=== PATIENT | female | born 1960 | race Caucasian/White ===

== ENCOUNTER 2018-02-18 13:00 | Outpatient (RCR) | payer OTHER, SELFPAY ==
--- NOTE | 2018-02-09 12:56 | PT.OTN ---
Addendum entered and electronically signed by Rafa Godfrey 02/09/18 14:36: On February 09, 2018 our therapy services consisting of Speech, Occupational, and Physical therapy transitioned from [employer] electronic documentation system to a new [employer] electronic system. All documentation prior to February 09 can be found under [employer] saved data. From February 09 forward, all medical record documentation will be in [employer] 6.1. Original Note: Current Diagnoses Unilateral primary osteoarthritis, left knee (02/09/18) Unspecified internal derangement of left knee (02/09/18) Pain in left knee (02/09/18) Difficulty in walking, not elsewhere classified (02/09/18) Weakness (02/09/18)
--- NOTE | 2018-02-09 16:03 | PT.OTN ---
Addendum entered and electronically signed by Jesusita Velez, PT 02/09/18 16:07: Transition note: On February 09, 2018 our therapy services consisting of Speech, Occupational, and Physical Therapy transitioned from the [employer] electronic documentation system to a new [employer] electronic documentation system.?? All documentation prior to February 09 can be found under [employer] saved data. From February 09 forward all medical record documentation will be in [employer]. Original Note: Physical Therapy Treatment Note PT-OP-C Subjective Start: 02/09/18 08:30 Freq: Status: Active Protocol: Activity Type Activity Date Activity User E-Sign Co-Sign Detail Recorded Client Recorded Date Recorded By Document 02/09/18 13:00 [facility] [id number] 02/09/18 13:50 [facility] 02/09/18 13:00 OP-PT Subjective [Patient Comments] -Patient Comments I've got things I've got to do. Don't fully trust my leg yet, pain 0 -2/10. No pain medications. Woke up at 3 am with bursting sensation of increased sensation in front of knee, reports less numbness. -Patient Reported Progress Improving OP-PT Pain Assessment [Comments] -Pain Comments pain left knee 0-2/10 PT-OP-Q Treatments Start: 02/09/18 08:30 Freq: Status: Active Protocol: Activity Type Activity Date Activity User E-Sign Co-Sign Detail Recorded Client Recorded Date Recorded By Document 02/09/18 13:00 [facility] [id number] 02/09/18 13:50 [facility] 02/09/18 13:00 Cardio Equipment [Recumbent Bicycle] -Duration (Minutes) 10 -Resistance 2 -Seat Position 4 Gym Equipment [Shuttle Recovery] Unilateral Squats -Resistance 50 -Shuttle Recovery Platform Stable Bilateral Squats -Resistance 87 -Shuttle Recovery Platform Stable -Reps/Time 20 Therapeutic Exercises [Supine Exercises] 3 -Supine Exercise Name wall slide -Side left -Equipment Used slider sheet -Reps/Minutes 5 2 -Supine Exercise Name SAQ -Side bilateral -Reps/Minutes 8 -Comments manual assist for left LE 1 -Supine Exercise Name quad set with manual overpressure [Sitting Exercises] 2 -Sitting Exercise Name seated knee flexion with theraband -Equipment Used level 1 theraband -Reps/Minutes 10 [Standing Exercises] 3 -Standing Exercise Name heel raises, toe raises -Side bilateral -Reps/Minutes 10 2 -Standing Exercise Name sidestepping, fwd and back stepping with green theraband -Side bilateral -Reps/Minutes 10 1 -Standing Exercise Name quad stretch -Side left -Equipment Used chair -Reps/Minutes 2 Gait Training [Gait Activity] 1 -Description gait with emphasis on no limp -Device Used SPC -Level of Assistance verbal cues -Surface low carpet -Distance/Duration 5 min -Comments mirror for visual feedback Self-Care/Home Management Treatment [Education] -Other Education self-massage, use of heat for muscle relaxation of hamstrings PT-OP-T Assessment and Plan Start: 02/09/18 08:30 Freq: Status: Active Protocol: Activity Type Activity Date Activity User E-Sign Co-Sign Detail Recorded Client Recorded Date Recorded By Document 02/09/18 15:19 [facility] [id number] 02/09/18 15:20 [facility] 02/09/18 15:19 Physical Therapy Plan [Frequency and Duration] -Frequency of Treatment 2x/Week [Next Visit Focus/Plan] -Next Visit Plan Continue TKA rehab, emphasis on knee extension, functional quad strengthening. Current Diagnoses Unilateral primary osteoarthritis, left knee (02/09/18) Unspecified internal derangement of left knee (02/09/18) Pain in left knee (02/09/18) Difficulty in walking, not elsewhere classified (02/09/18) Weakness (02/09/18)
--- NOTE | 2018-02-11 18:02 | PT.OTN ---
Current Diagnoses Unilateral primary osteoarthritis, left knee (02/11/18) Unspecified internal derangement of left knee (02/11/18) Pain in left knee (02/11/18) Difficulty in walking, not elsewhere classified (02/11/18) Weakness (02/11/18) Physical Therapy Treatment Note PT-OP-A Visit Information Start: 02/09/18 08:30 Freq: Status: Active Protocol: Activity Type Activity Date Activity User E-Sign Co-Sign Detail Recorded Client Recorded Date Recorded By Document 02/11/18 17:46 [facility] [id number] 02/11/18 17:47 [facility] 02/11/18 17:46 Out-Patient Physical Therapy Visit Information [Visit Information] -Visit Type Treatment Note -Visit Start Time 13:00 -Visit Stop Time 14:00 -Total Visit Minutes 60 -Visit Number 10 -Number of FUR PLUCKER Visits 0 PT-OP-C Subjective Start: 02/09/18 08:30 Freq: Status: Active Protocol: Activity Type Activity Date Activity User E-Sign Co-Sign Detail Recorded Client Recorded Date Recorded By Document 02/11/18 13:16 [facility] [id number] 02/11/18 13:47 [facility] 02/11/18 13:16 OP-PT Subjective [Patient Comments] -Patient Comments Rough week; left hip pain limiting, unable to fully straighten left knee. OP-PT Pain Assessment [Home Pain Medication Use] -Pain Medications Used No PT-OP-G Mobility & Gait Start: 02/09/18 08:30 Freq: Status: Active Protocol: Activity Type Activity Date Activity User E-Sign Co-Sign Detail Recorded Client Recorded Date Recorded By Document 02/11/18 18:00 [facility] [id number] 02/11/18 18:01 [facility] 02/11/18 18:00 OP Gait Assessment [Gait] -Gait Assistance Required: Independent [Assistive Devices] -Assistive Device Straight Cane [Gait Deviations] -General Gait Pattern Antalgic [Factors Limiting Gait Function] -Factors Limiting Gait Function Pain PT-OP-K Range of Motion Start: 02/09/18 08:30 Freq: Status: Active Protocol: Activity Type Activity Date Activity User E-Sign Co-Sign Detail Recorded Client Recorded Date Recorded By Document 02/11/18 17:57 [facility] [id number] 02/11/18 17:58 [facility] 02/11/18 17:57 Knee Goniometric Range of Motion [Knee] Measured in Degrees Left -Knee ROM WFL No -Patient Position supine for flex , seated extension -Flexion Passive (120-145 degrees) 120 -Extension Active (degrees) 17 [ROM Limitations] -Knee ROM Limitations Soft Tissue Tightness Pain PT-OP-Q Treatments Start: 02/09/18 08:30 Freq: Status: Active Protocol: Activity Type Activity Date Activity User E-Sign Co-Sign Detail Recorded Client Recorded Date Recorded By Document 02/11/18 13:16 [facility] [id number] 02/11/18 13:47 [facility] 02/11/18 13:16 Cardio Equipment [Treadmill] -Duration (Minutes) 5 -Speed 2.0 -Incline 0 Gym Equipment [Shuttle Recovery] Unilateral Squats -Resistance 50 -Shuttle Recovery Platform Stable -Reps/Time 10 with manual overpressure Bilateral Squats -Resistance 87 -Shuttle Recovery Platform Stable -Reps/Time 20x [Shuttle Balance] 1 -Details side to side and front to back bal chains red -Reps/Duration 5' Therapeutic Exercises [Supine Exercises] 3 -Supine Exercise Name quad sets -Side left -Comments manual overpressure [Prone Exercises] 2 -Prone Exercise Name prone knee stretch -Side left -Equipment Used edge of table -Reps/Minutes 4 -Comments with manual overpressure 1 -Prone Exercise Name knee flex -Side bilateral -Equipment Used edge of table [Standing Exercises] 2 -Standing Exercise Name Backward gait for knee extension -Side bilateral -Reps/Minutes 2' 1 -Standing Exercise Name standing knee extension -Side left -Equipment Used L1 TB -Reps/Minutes 10x PT-OP-R Modalities Start: 02/09/18 08:30 Freq: Status: Active Protocol: Activity Type Activity Date Activity User E-Sign Co-Sign Detail Recorded Client Recorded Date Recorded By Document 02/11/18 17:53 [facility] [id number] 02/11/18 17:54 [facility] 02/11/18 17:53 Electric Stimulation [Electric Stimulation] Interferential Current (IFC) -Body Location left knee -Duration (Minutes) 15 -Patient Position Hooklying -Combined With Heat/Cold Cold Pack PT-OP-T Assessment and Plan Start: 02/09/18 08:30 Freq: Status: Active Protocol: Activity Type Activity Date Activity User E-Sign Co-Sign Detail Recorded Client Recorded Date Recorded By Document 02/11/18 17:54 [facility] [id number] 02/11/18 17:56 YONNY 02/11/18 17:54 Physical Therapy Assessment [Assessment Summary] -Assessment Patient doing well with knee flexion, but having difficulty achieving full knee extension. Gait antalgic due to both knee pain as well as left hip pain. Physical Therapy Plan [Next Visit Focus/Plan] -Next Visit Plan Progress with TKA rehab; left knee ROM, strengthening, gait training.
--- NOTE | 2018-02-14 17:07 | PT.OPPN ---
Current Diagnoses Unilateral primary osteoarthritis, left knee (02/11/18) Unspecified internal derangement of left knee (02/11/18) Pain in left knee (02/11/18) Difficulty in walking, not elsewhere classified (02/11/18) Weakness (02/11/18) Physical Therapy Progress Note PT-OP-A Visit Information Start: 02/09/18 08:30 Freq: Status: Active Protocol: Activity Type Activity Date Activity User E-Sign Co-Sign Detail Recorded Client Recorded Date Recorded By Document 02/11/18 17:46 [facility] [id number] 02/11/18 17:47 [facility] 02/11/18 17:46 Out-Patient Physical Therapy Visit Information [Visit Information] -Visit Type Treatment Note -Visit Start Time 13:00 -Visit Stop Time 14:00 -Total Visit Minutes 60 -Visit Number 10 -Number of SPEECH COMMUNICATION INSTRUCTOR Visits 0 PT-OP-C Subjective Start: 02/09/18 08:30 Freq: Status: Active Protocol: Activity Type Activity Date Activity User E-Sign Co-Sign Detail Recorded Client Recorded Date Recorded By Document 02/11/18 13:16 [facility] [id number] 02/11/18 13:47 [facility] 02/11/18 13:16 OP-PT Subjective [Patient Comments] -Patient Comments Rough week; left hip pain limiting, unable to fully straighten left knee. OP-PT Pain Assessment [Home Pain Medication Use] -Pain Medications Used No PT-OP-G Mobility & Gait Start: 02/09/18 08:30 Freq: Status: Active Protocol: Activity Type Activity Date Activity User E-Sign Co-Sign Detail Recorded Client Recorded Date Recorded By Document 02/11/18 18:00 [facility] [id number] 02/11/18 18:01 [facility] 02/11/18 18:00 OP Gait Assessment [Gait] -Gait Assistance Required: Independent [Assistive Devices] -Assistive Device Straight Cane [Gait Deviations] -General Gait Pattern Antalgic [Factors Limiting Gait Function] -Factors Limiting Gait Function Pain PT-OP-K Range of Motion Start: 02/09/18 08:30 Freq: Status: Active Protocol: Activity Type Activity Date Activity User E-Sign Co-Sign Detail Recorded Client Recorded Date Recorded By Document 02/11/18 17:57 [facility] [id number] 02/11/18 17:58 [facility] 02/11/18 17:57 Knee Goniometric Range of Motion [Knee] Measured in Degrees Left -Knee ROM WFL No -Patient Position supine for flex , seated extension -Flexion Passive (120-145 degrees) 120 -Extension Active (degrees) 17 [ROM Limitations] -Knee ROM Limitations Soft Tissue Tightness Pain PT-OP-T Assessment and Plan Start: 02/09/18 08:30 Freq: Status: Active Protocol: Activity Type Activity Date Activity User E-Sign Co-Sign Detail Recorded Client Recorded Date Recorded By Document 02/14/18 16:58 [facility] [id number] 02/14/18 17:07 [facility] 02/14/18 16:58 Physical Therapy Assessment [Impairments] -Impairments Edema Functional Mobility Gait ROM Strength [Goals] Six -Impairment edema -Obstetrical Tech Goal (LTG) Decrease swelling to within 1 cm of right knee Five -Impairment Strength -Obstetrical Tech Goal (LTG) Increase left LE strength to 4+/5 Four -Impairment Gait dysfunction: antalgic, step- to on stairs -Obstetrical Tech Goal (LTG) Gait without device without limp, alternating pattern on stairs Three -Impairment Education -Residential Goal (LTG) Patient to be independent with HEP -LTG Duration 4 wks Two -Impairment LEFS -Residential Goal (LTG) Improve LEFS to 75% -LTG Duration 4 wks One -Impairment ROM -Residential Goal (LTG) Increase left knee ROM to 0- 120 -LTG Duration 4 wks [Progress Towards Goals] -Progress Towards Goals Progressing Toward Goals -Progress Comments Great progress with knee flexion ROM, but lacks full knee extension and gait is antalgic due to left hip dysfunction with pain and weakness. Patient is highly motivated. Physical Therapy Plan [Frequency and Duration] -Frequency of Treatment 2x/Week -Duration of Treatment 4 wks -Plan of Care Start Date 01/11/18 -Plan of Care End Date 03/12/18 [Therapeutic Interventions] -Therapeutic Interventions Aquatic Therapy Gait Training Home Exercise Program Manual Therapy Neuromuscular Re-education Patient/ Caregiver Education Self-Care/Home Management Therapeutic Activities Therapeutic Exercises [Next Visit Focus/Plan] -Next Visit Plan Continue to progress with TKA rehab with high focus on increasing left knee extension .
--- NOTE | 2018-02-16 14:52 | PT.OTN ---
Current Diagnoses Unilateral primary osteoarthritis, left knee (02/16/18) Unspecified internal derangement of left knee (02/16/18) Pain in left knee (02/16/18) Difficulty in walking, not elsewhere classified (02/16/18) Weakness (02/16/18) Physical Therapy Treatment Note PT-OP-A Visit Information Start: 02/09/18 08:30 Freq: Status: Active Protocol: Activity Type Activity Date Activity User E-Sign Co-Sign Detail Recorded Client Recorded Date Recorded By Document 02/16/18 14:46 [facility] [id number] 02/16/18 14:51 [facility] 02/16/18 14:46 Out-Patient Physical Therapy Visit Information [Visit Information] -Visit Type Treatment Note -Visit Start Time 13:00 -Visit Stop Time 14:00 -Total Visit Minutes 60 -Visit Number 11 -Number of COMMUNITY HEALTH PLANNING DIRECTOR Visits 0 [Evaluation Information] -Evaluation Date 01/11/18 PT-OP-C Subjective Start: 02/09/18 08:30 Freq: Status: Active Protocol: Activity Type Activity Date Activity User E-Sign Co-Sign Detail Recorded Client Recorded Date Recorded By Document 02/16/18 13:06 [facility] [id number] 02/16/18 13:08 [facility] 02/16/18 13:06 OP-PT Subjective [Patient Comments] -Patient Comments Patient reports she saw PA who was pleased with her progress; said the extension will come. Patient reported increase in pain after spending a lot of time on her feet standing and walking at [facility]. Used walker on Thursday. OP-PT Pain Assessment [Pain Behaviors] -Pain Behaviors Facial Grimacing Guarding PT-OP-G Mobility & Gait Start: 02/09/18 08:30 Freq: Status: Active Protocol: Activity Type Activity Date Activity User E-Sign Co-Sign Detail Recorded Client Recorded Date Recorded By Document 02/11/18 18:00 [facility] [id number] 02/11/18 18:01 [facility] 02/11/18 18:00 OP Gait Assessment [Gait] -Gait Assistance Required: Independent [Assistive Devices] -Assistive Device Straight Cane [Gait Deviations] -General Gait Pattern Antalgic [Factors Limiting Gait Function] -Factors Limiting Gait Function Pain PT-OP-K Range of Motion Start: 02/09/18 08:30 Freq: Status: Active Protocol: Activity Type Activity Date Activity User E-Sign Co-Sign Detail Recorded Client Recorded Date Recorded By Document 02/11/18 17:57 [facility] [id number] 02/11/18 17:58 [facility] 02/11/18 17:57 Knee Goniometric Range of Motion [Knee] Measured in Degrees Left -Knee ROM WFL No -Patient Position supine for flex , seated extension -Flexion Passive (120-145 degrees) 120 -Extension Active (degrees) 17 [ROM Limitations] -Knee ROM Limitations Soft Tissue Tightness Pain PT-OP-Q Treatments Start: 02/09/18 08:30 Freq: Status: Active Protocol: Activity Type Activity Date Activity User E-Sign Co-Sign Detail Recorded Client Recorded Date Recorded By Document 02/16/18 13:08 [facility] [id number] 02/16/18 14:38 [facility] 02/16/18 13:08 Cardio Equipment [Recumbent Bicycle] -Duration (Minutes) 10 -Resistance 3 -Seat Position 4 -Other 4.4 miles Gym Equipment [Shuttle Recovery] Unilateral Squats -Resistance 50 -Shuttle Recovery Platform Stable -Reps/Time 10 with manual overpressure Bilateral Squats -Resistance 87 -Shuttle Recovery Platform Stable -Reps/Time 20x [Shuttle Balance] 1 -Details side to side and front to back bal chains red -Reps/Duration 8' Therapeutic Exercises [Supine Exercises] 3 -Supine Exercise Name wall slide -Side left -Equipment Used slider sheet -Reps/Minutes 5 [Prone Exercises] 2 -Prone Exercise Name prone knee stretch -Side left -Equipment Used edge of table -Reps/Minutes 5 -Comments with manual overpressure 1 -Prone Exercise Name knee flex -Side bilateral -Equipment Used edge of table [Standing Exercises] 4 -Standing Exercise Name HC stretch -Equipment Used ARSALAN Manual Therapy Treatment [Soft Tissue Mobilization] 1 -Body Location distal hamstrings -Mobilization Type Strumming -Intensity/Depth Deep -Body Position Prone PT-OP-R Modalities Start: 02/09/18 08:30 Freq: Status: Active Protocol: Activity Type Activity Date Activity User E-Sign Co-Sign Detail Recorded Client Recorded Date Recorded By Document 02/16/18 14:38 [facility] [id number] 02/16/18 14:39 [facility] 02/16/18 14:38 Electric Stimulation [Electric Stimulation] Interferential Current (IFC) -Body Location left knee -Intensity 50 -Contraction Type Normal -Target/Sweep Sweep -High/Low High -Patient Position Supine -Combined With Heat/Cold Cold Pack PT-OP-T Assessment and Plan Start: 02/09/18 08:30 Freq: Status: Active Protocol: Activity Type Activity Date Activity User E-Sign Co-Sign Detail Recorded Client Recorded Date Recorded By Document 02/16/18 14:44 [facility] [id number] 02/16/18 14:45 [facility] 02/16/18 14:44 Physical Therapy Assessment [Progress Towards Goals] -Progress Towards Goals Progressing Toward Goals [Assessment Summary] -Assessment Improved distal hamstring mobility following manual treatment. Continues to progress with ther ex. Physical Therapy Plan [Next Visit Focus/Plan] -Next Visit Plan Continue TKA rehab, progress ROM especially extension. Add sport cord
--- NOTE | 2018-02-18 16:32 | PT.OTN ---
Current Diagnoses Unilateral primary osteoarthritis, left knee (02/18/18) Unspecified internal derangement of left knee (02/18/18) Pain in left knee (02/18/18) Difficulty in walking, not elsewhere classified (02/18/18) Weakness (02/18/18) Physical Therapy Treatment Note PT-OP-A Visit Information Start: 02/09/18 08:30 Freq: Status: Active Protocol: Document 02/18/18 16:27 [facility] (Rec: 02/18/18 16:32 [facility] [id number]) Out-Patient Physical Therapy Visit Information Visit Information Visit Type Treatment Note Visit Start Time 13:00 Visit Stop Time 14:00 Total Visit Minutes 60 Visit Number 12 Number of BASE MANAGER Visits 0 Evaluation Information Evaluation Date 01/11/18 PT-OP-C Subjective Start: 02/09/18 08:30 Freq: Status: Active Protocol: Document 02/18/18 12:59 [facility] (Rec: 02/18/18 13:38 [facility] [id number]) OP-PT Subjective Patient Comments Patient Comments hip pain most limiting, still can't extend knee. Patient Reported Progress Improving PT-OP-G Mobility & Gait Start: 02/09/18 08:30 Freq: Status: Active Protocol: Document 02/11/18 18:00 [facility] (Rec: 02/11/18 18:01 [facility] [id number]) OP Gait Assessment Gait Gait Assistance Required: Independent Assistive Devices Assistive Device Straight Cane Gait Deviations General Gait Pattern Antalgic Factors Limiting Gait Function Factors Limiting Gait Function Pain PT-OP-K Range of Motion Start: 02/09/18 08:30 Freq: Status: Active Protocol: Document 02/11/18 17:57 [facility] (Rec: 02/11/18 17:58 [facility] [id number]) Knee Goniometric Range of Motion Knee Measured in Degrees Left Knee ROM WFL No Patient Position supine for flex, seated extension Flexion Passive (degrees) 120 Extension Active (degrees) 17 Knee ROM Limitations Knee ROM Limitations Soft Tissue Tightness Pain PT-OP-Q Treatments Start: 02/09/18 08:30 Freq: Status: Active Protocol: Document 02/18/18 12:59 [facility] (Rec: 02/18/18 13:38 [facility] [id number]) Gym Equipment Shuttle Balance 1 Details side to side and front to back bal chains red Reps/Duration 8' Sport Cord 1 Exercise Details forward, back, side Therapeutic Exercises Supine Exercises 4 Supine Exercise Name bridge with LE's on therapy ball Equipment Used red ball Reps/Minutes 10x 3 Supine Exercise Name wall slide Side left Equipment Used slider sheet Reps/Minutes 5 2 Supine Exercise Name SAQ Side bilateral Reps/Minutes 8 Comments manual assist for left LE 1 Supine Exercise Name quad set with manual overpressure Prone Exercises 2 Prone Exercise Name prone knee stretch Side left Equipment Used edge of table Reps/Minutes 5 Comments with manual overpressure 1 Prone Exercise Name knee flex Side bilateral Equipment Used edge of table Standing Exercises 4 Standing Exercise Name HC stretch Equipment Used ARSALAN 3 Standing Exercise Name heel raises, toe raises Side bilateral Reps/Minutes 10 1 Standing Exercise Name standing knee extension Side left Equipment Used L1 TB Reps/Minutes 10x Gait Training Gait Activity 1 Description gait with emphasis on no limp Device Used SPC Level of Assistance verbal cues Surface low carpet Distance/Duration 5 min Comments mirror for visual feedback Manual Therapy Treatment Soft Tissue Mobilization 1 Body Location distal hamstrings Mobilization Type Strumming Intensity/Depth Deep Body Position Prone PT-OP-R Modalities Start: 02/09/18 08:30 Freq: Status: Active Protocol: Document 02/18/18 16:27 [facility] (Rec: 02/18/18 16:32 [facility] [id number]) Electric Stimulation Electric Stimulation Interferential Current (IFC) Body Location left knee Intensity 50 Contraction Type Normal Target/Sweep Sweep High/Low High Patient Position Supine Combined With Heat/Cold Cold Pack PT-OP-T Assessment and Plan Start: 02/09/18 08:30 Freq: Status: Active Protocol: Document 02/18/18 16:27 [facility] (Rec: 02/18/18 16:32 [facility] [id number]) Physical Therapy Assessment Assessment Summary Assessment Patient demonstrates improved gait with use of sport cord to increase focus on correct muscle activation and gait sequencing Physical Therapy Plan Frequency and Duration Frequency of Treatment 2x/Week Duration of Treatment 4 wks Plan of Care Start Date 01/11/18 Plan of Care End Date 03/12/18 Next Visit Focus/Plan Next Visit Plan Continue TKA rehab, progress ROM especially extension. Sidelying hip ab against wall
--- NOTE | 2018-05-04 14:09 | PT.OPDS ---
Current Diagnoses Unilateral primary osteoarthritis, left knee (02/18/18) Unspecified internal derangement of left knee (02/18/18) Pain in left knee (02/18/18) Difficulty in walking, not elsewhere classified (02/18/18) Weakness (02/18/18) Provider Visit Care Team Role Provider Type Conrad Desai MD Family Provider Physician Primary Care Provider Specialty: Family Practice Address: [address] [place] [address], [id number] Email: [email or web address] Orion Reyes MD Attending Provider Physician Specialty: Family Practice Address: [address] [place] [address], [id number] Email: Visit Number Visit Number 12 Discharge Summary PT-OP-C Subjective Start: 02/09/18 08:30 Freq: Status: Active Protocol: Document 02/18/18 12:59 SAK (Rec: 02/18/18 13:38 [facility] [id number]) OP-PT Subjective Patient Comments Patient Comments hip pain most limiting, still can't extend knee. Patient Reported Progress Improving PT-OP-G Mobility & Gait Start: 02/09/18 08:30 Freq: Status: Active Protocol: Document 02/11/18 18:00 SAK (Rec: 02/11/18 18:01 [facility] [id number]) OP Gait Assessment Gait Gait Assistance Required: Independent Assistive Devices Assistive Device Straight Cane Gait Deviations General Gait Pattern Antalgic Factors Limiting Gait Function Factors Limiting Gait Function Pain PT-OP-K Range of Motion Start: 02/09/18 08:30 Freq: Status: Active Protocol: Document 02/11/18 17:57 SAK (Rec: 02/11/18 17:58 [facility] [id number]) Knee Goniometric Range of Motion Knee Measured in Degrees Left Knee ROM WFL No Patient Position supine for flex, seated extension Flexion Passive (degrees) 120 Extension Active (degrees) 17 Knee ROM Limitations Knee ROM Limitations Soft Tissue Tightness Pain PT-OP-T Assessment and Plan Start: 02/09/18 08:30 Freq: Status: Active Protocol: Document 05/04/18 14:07 SAK (Rec: 05/04/18 14:08 SAK [id number]) Physical Therapy Assessment Goals Six Impairment edema Pie Maker Goal (LTG) Decrease swelling to within 1 cm of right knee Five Impairment Strength Fpc Goal (LTG) Increase left LE strength to 4 +/5 Four Impairment Gait dysfunction: antalgic, step-to on stairs Fpc Goal (LTG) Gait without device without limp, alternating pattern on stairs Three Impairment Education Fpc Goal (LTG) Patient to be independent with HEP LTG Duration 4 wks Two Impairment LEFS Fpc Goal (LTG) Improve LEFS to 75% LTG Duration 4 wks One Impairment ROM Fpc Goal (LTG) Increase left knee ROM to 0- 120 LTG Duration 4 wks Progress Towards Goals Progress Comments Patient had been progressing with PT though lacking full knee extension. She did not show for her last 2 scheduled PT appointments and we have heard nothing further. Will be discharged from PT at this time. Assessment Summary Assessment Unable to perform discharge assessment due to patient no- shows. Physical Therapy Plan Discharge Physical Therapy Discharge Reasons No Longer Attending PT
== END 2018-09-13 12:52 ==
LOC: PHYS 13:00
PROVIDERS: Family Provider Family Medicine; PCP Family Medicine; Visit Provider Family Medicine
DX: M23.92 Unspecified internal derangement of left knee (principal); M25.562 Pain in left knee; M17.12 Unilateral primary osteoarthritis, left knee; R26.2 Difficulty in walking, not elsewhere classified; R53.1 Weakness
CPT/HCPCS: 97014; 97110; 97112; 97140; G0283

== ENCOUNTER 2018-03-02 17:51 | Emergency (ER) | payer OTHER, SELFPAY ==
[2018-03-02 18:01] VITALS: BP 117/74; PULSE 85; RESP 16; TEMP 36.3; O2SAT 97; BMI 27.2
--- NOTE | 2018-03-02 18:03 | ED.EXTPRO ---
HPI - Extremity Problem <DEBORA Valle - Last Filed: 03/02/18 21:56> General Chief complaint: Extremity Injury, Lower Stated complaint: PELVIC PAIN S/P FALL IN BATHTUB Time Seen by Provider: 03/02/18 18:03 History of Present Illness HPI Narrative: 57-year-old female here for complaint of pain into her left hip area status post fall in her bathtub yesterday. She states that she was stepping out of the tub yesterday after taking a bath her ft slipped causing her to come down on her buttocks/hip area on the edge of the tub. She is able to ambulate although she does have pain to that area. She denies any other injuries or concerns. Increased pain with motion of the left hip/buttock. She denies any loss of bladder or bowel control. MD Complaint: extremity pain Related Data Previous Rx's Medication Instructions Recorded albuterol sulfate [Proventil HFA] 2 puff INH Q4HP PRN #8.5 gm 05/27/17 hydrocodone-acetaminophen [[place]] 1 - 2 tab PO Q4HP PRN #90 tab 07/22/17 hydrocodone-acetaminophen 1 - 2 tab PO Q6HP PRN #90 tab 01/29/18 hydrocodone-acetaminophen 1 tab PO Q6H PRN #10 tab 03/02/18 Allergies Allergy/AdvReac Type Severity Reaction Status Date / Time ketorolac [KETOROLAC] Allergy Severe THROAT Verified 03/02/18 21:02 SWELLING FROM TORADOL Review of Systems <DEBORA Valle - Last Filed: 03/02/18 21:56> Constitutional Denies chills, Denies fever(s), Denies lethargy and Denies weakness Eyes Denies change in vision, Denies eye discharge, Denies irritation and Denies loss of vision ENT Ears, Nose, Mouth, and Throat: Denies change in voice, Denies neck pain and Denies sore throat Cardiovascular Denies chest pain, Denies irregular heart rhythm, Denies lightheadedness, Denies palpitations, Denies dyspnea, Denies dyspnea on exertion and Denies orthopnea Respiratory Denies cough, Denies dyspnea, Denies dyspnea on exertion and Denies wheezing Gastrointestinal Gastrointestinal: Denies abdominal pain, Denies change in bowel habits, Denies diarrhea, Denies nausea and Denies vomiting Genitourinary Denies hematuria, Denies flank pain, Denies urinary incontinence and Denies urinary urgency Musculoskeletal Denies back pain, Denies muscle weakness, Denies neck pain, Denies numbness and Denies tingling Comments: Left hip/buttocks pain Neurologic Denies loss of vision, Denies numbness, Denies tingling and Denies weakness Endocrine Denies palpitations Allergic/Immunologic Denies wheezing Exam <DEBORA Valle - Last Filed: 03/02/18 21:56> Initial Vital Signs Initial Vital Signs: Vital Signs Temperature 97.4 F L 03/02/18 18:01 Pulse Rate 85 03/02/18 18:01 Respiratory Rate 16 03/02/18 18:01 Blood Pressure 117/74 03/02/18 18:01 Pulse Oximetry 97 03/02/18 18:01 Const General: cooperative and well developed Nutritional Appearance: well nourished Orientation: alert, awake, oriented x3 and not confused HENMT Mouth: oral mucosae normal, oropharynx normal and moist mucous membranes Eyes Conjunctivae: conjunctivae normal Sclera: sclerae normal Pupils: PERRL EOM: EOM intact bilaterally Resp Effort & Inspection: normal respiratory effort, able to speak in complete sentences, no respiratory distress and no use of accessory muscles Auscultation: clear to auscultation bilaterally, no rales, no rhonchi and no wheezes Cardio Rate: regular rate Rhythm: regular rhythm Heart Sounds: no click, no gallops, no murmurs and no rubs Pulses: normal peripheral pulses GI Inspection: non-distended Palpation: soft, no hepatosplenomegaly, No guarding, No pulsatile mass and No tender Auscultation: normal bowel sounds Skin General: no rashes or lesions noted, No jaundice and No petechiae Extrem Other: Left hip/buttocks area with no deformities. No ecchymosis. No swelling. Distal sensation is intact. Full range of motion. Distal pulses are intact. <Shiraz Singleton DO - Last Filed: 03/03/18 03:22> Initial Vital Signs Initial Vital Signs: Vital Signs Temperature 97.4 F L 03/02/18 18:01 Pulse Rate 85 03/02/18 18:01 Respiratory Rate 16 03/02/18 18:01 Blood Pressure 117/74 03/02/18 18:01 Pulse Oximetry 97 03/02/18 18:01 Course <DEBORA Valle - Last Filed: 03/02/18 21:56> Orders Ordered: ED Orders 03/02/18 19:38 XR femur LT min 2V Stat Discontinued Medications Morphine Sulfate (Morphine) 5 mg IM NOW ONE Stop: 03/02/18 19:40 Morphine Sulfate (Morphine) 4 mg IV NOW ONE Stop: 03/02/18 20:46 Morphine Sulfate (Morphine) 4 mg INJ NOW ONE Stop: 03/02/18 20:50 Last Admin: 03/02/18 20:51 Dose: 4 mg Vital Signs - 8 hr 03/02/18 20:17 Pulse Rate 84 Respiratory Rate 15 Blood Pressure [Left Arm] 115/55 L Pulse Oximetry 100 <Shiraz Singleton DO - Last Filed: 03/03/18 03:22> Orders Ordered: ED Orders 03/02/18 19:38 XR femur LT min 2V Stat Discontinued Medications Morphine Sulfate (Morphine) 5 mg IM NOW ONE Stop: 03/02/18 19:40 Morphine Sulfate (Morphine) 4 mg IV NOW ONE Stop: 03/02/18 20:46 Morphine Sulfate (Morphine) 4 mg INJ NOW ONE Stop: 03/02/18 20:50 Last Admin: 03/02/18 20:51 Dose: 4 mg Vital Signs - 8 hr 03/02/18 20:17 Pulse Rate 84 Respiratory Rate 15 Blood Pressure [Left Arm] 115/55 L Pulse Oximetry 100 MDM - Extremity (Nontraumatic) <DEBORA Valle - Last Filed: 03/02/18 21:56> Imaging Data Hip pelvis: Radiologist's impression: PROCEDURE: XR HIP W PEL IF DONE LT 2V INDICATIONS: fell in the tub last night, landed on her buttocks. Left hip pain TECHNIQUE: AP pelvis with lateral view(s) of the left hip(s). COMPARISON: None. FINDINGS: Bones: No fractures or dislocations. Pelvic ring appears intact. No suspicious bony lesions. Soft tissues: The visualized bowel gas pattern is normal. No suspicious soft tissue calcifications. IMPRESSION: No fracture or dislocation. If clinical symptoms persist or clinical suspicion for pathology is high, a repeat examination in 7-10 days, or advanced imaging such as CT or MRI is suggested for further evaluation. Sacral coccyx : Radiologist's impression: PROCEDURE: XR SACRUM COCCYX MIN 2V INDICATIONS: fell in the tub, with tenderness sacral TECHNIQUE: 3 views of the sacrum and coccyx acquired. COMPARISON: None. FINDINGS: Bones: Suspect minimally displaced fracture of distal sacrum (S6). No suspicious bony lesions. There is degenerative disc disease lower lumbar spine. Soft tissues: Visualized bowel gas pattern is normal. No suspicious soft tissue densities. IMPRESSION: Suspect minimally displaced distal sacral fracture. Dictated by: Pippa Fontanez M.D. on 03/02/2018 at 18:41 Approved by: Pippa Fontanez M.D. on 03/02/2018 at 18:44 Left femur : My impression: PROCEDURE: XR FEMUR LT MIN 2V INDICATIONS: thigh pain and hip pain sp fall TECHNIQUE: 3 views of the femur were acquired. COMPARISON: None. FINDINGS: Bones: No fractures or dislocations. No suspicious bony lesions. There is left knee arthroplasty with partially visualized intact prosthesis. Soft tissues: No suspicious soft tissue calcifications or masses. IMPRESSION: No fracture or dislocation. MDM Narrative Medical decision making narrative: X-ray of the left hip and left femur were obtained were negative for any acute fractures. X-ray of the sacrum/coccyx was obtained and shows possible nondisplaced fracture to the distal sacrum. [id number] Tylenol as needed for discomfort. She is prescribed a small amount of [place] for breakthrough pain. Follow up with primary care provider. She is instructed to use a donut for sitting to help with her pain. For any worsening symptoms such as numbness tingling to lower extremities or loss of bladder or bowel control return to the emergency room. Discharge Plan Departure Patient Disposition: Home, Self-Care Clinical Impression: Sacral fracture, closed Discharge Date/Time: 03/02/18 21:03 Interventions: ED Discharge Assessment Last Done: 03/02/18 21:02 Instructions: Sacral Stress Fracture Activity Restrictions/Additional Instructions: X-ray shows a nondisplaced fracture to the distal sacrum. Use [id number] Tylenol for discomfort. Small amount of [place] is prescribed for breakthrough pain use as directed. Use doughnut to with sitting to help with discomfort. Follow up with primary care provider. For any worsening symptoms such as numbness and tingling into the lower extremities or loss of bladder control or unable to ambulate return to the emergency room. Prescriptions: New hydrocodone-acetaminophen 5-325 mg tablet 1 tab PO Q6H PRN (Reason: pain) Qty: 10 RF: 0 No Action albuterol sulfate [Proventil HFA] 90 MCG/PUFF HFA aerosol inhaler 2 puff INH Q4HP PRNQty: 8.5 RF: 3 hydrocodone-acetaminophen [[place]] 5 MG/325 MG tablet 1 - 2 tab PO Q4HP PRNQty: 90 RF: 0 hydrocodone-acetaminophen 5 MG/325 MG tablet 1 - 2 tab PO Q6HP PRNQty: 90 RF: 0 Referrals: Conrad Desai MD [Primary Care Provider] - <Shiraz Singleton DO - Last Filed: 03/03/18 03:22> Cosign ED Attending Nicolás Attestation: I was immediately available in the department for consultation. Documentation has been reviewed. I agree with assessment and plan.
--- NOTE | 2018-03-02 18:15 | DI.RAD.S_ITS ---
PROCEDURE: XR HIP W PEL IF DONE LT 2V INDICATIONS: fell in the tub last night, landed on her buttocks. Left hip pain TECHNIQUE: AP pelvis with lateral view(s) of the left hip(s). COMPARISON: None. FINDINGS: Bones: No fractures or dislocations. Pelvic ring appears intact. No suspicious bony lesions. Soft tissues: The visualized bowel gas pattern is normal. No suspicious soft tissue calcifications. IMPRESSION: No fracture or dislocation. If clinical symptoms persist or clinical suspicion for pathology is high, a repeat examination in 7-10 days, or advanced imaging such as CT or MRI is suggested for further evaluation. Dictated by: Pippa Fontanez M.D. on 03/02/2018 at 18:39 Approved by: Pippa Fontanez M.D. on 03/02/2018 at 18:41
--- NOTE | 2018-03-02 18:19 | DI.RAD.S_ITS ---
PROCEDURE: XR SACRUM COCCYX MIN 2V INDICATIONS: fell in the tub, with tenderness sacral TECHNIQUE: 3 views of the sacrum and coccyx acquired. COMPARISON: None. FINDINGS: Bones: Suspect minimally displaced fracture of distal sacrum (S6). No suspicious bony lesions. There is degenerative disc disease lower lumbar spine. Soft tissues: Visualized bowel gas pattern is normal. No suspicious soft tissue densities. IMPRESSION: Suspect minimally displaced distal sacral fracture. Dictated by: Pippa Fontanez M.D. on 03/02/2018 at 18:41 Approved by: Pippa Fontanez M.D. on 03/02/2018 at 18:44
--- NOTE | 2018-03-02 19:38 | DI.RAD.S_ITS ---
PROCEDURE: XR FEMUR LT MIN 2V INDICATIONS: thigh pain and hip pain sp fall TECHNIQUE: 3 views of the femur were acquired. COMPARISON: None. FINDINGS: Bones: No fractures or dislocations. No suspicious bony lesions. There is left knee arthroplasty with partially visualized intact prosthesis. Soft tissues: No suspicious soft tissue calcifications or masses. IMPRESSION: No fracture or dislocation. Dictated by: Pippa Fontanez M.D. on 03/02/2018 at 20:26 Approved by: Pippa Fontanez M.D. on 03/02/2018 at 20:28
[2018-03-02 20:17] VITALS: BP 115/55; PULSE 84; RESP 15; O2SAT 100
[2018-03-02] MEDS: MORPHINE 4 MG/ML INJ INJ (20:51)
== END 2018-03-02 21:03 | disposition home or self-care (01) ==
PROVIDERS: Emergency Provider Nurse Practitioner Family; Family Provider Family Medicine; PCP Family Medicine
DX: S32.10XA Unspecified fracture of sacrum, initial encounter for closed fracture (principal); W18.2XXA Fall in (into) shower or empty bathtub, initial encounter
CPT/HCPCS: 72220; 73502; 73552; 96372; 96374; 99282; 99284; J2270

== ENCOUNTER → 2018-10-21 07:43 | Outpatient (CLI) | payer OTHER, SELFPAY ==
--- NOTE | 2018-10-21 08:00 | DI.MG.S_ITS ---
Patient Name: LIBERTAD ARGUETA date: 1960 Sex: F Attending Physician: Lloyd Indications: Date: 10/21/2018 08:00 At the request of: CRISTO HODGSON Procedure: MM screening mammo BI BILATERAL DIGITAL SCREENING MAMMOGRAM 3D/2D WITH CAD: 10/21/2018 CLINICAL: Routine screening. Family history of breast cancer. Comparison is made to exams dated: 03/03/2013 mammogram, 03/21/2011 mammogram, and 05/10/2008 mammogram - [facility]. The tissue of both breasts is heterogeneously dense. This may lower the sensitivity of mammography. Current study was also evaluated with a Computer Aided Detection (CAD) system. There are benign calcifications in the left breast. No significant masses, calcifications, or other findings are seen in either breast. There has been no significant interval change. IMPRESSION: There is no mammographic evidence of malignancy. A 1 year screening mammogram is recommended. This exam was interpreted at Station ID: [id number]. NOTE: For mammograms, a report in lay terms will be sent to the patient. Approximately 15% of breast malignancies will not be visualized mammographically. In the management of a palpable breast mass, a negative mammogram must not discourage biopsy of a clinically suspicious lesion. Electronically Signed By: Skinny silav/jennifer:10/21/2018 10:02:30 letter sent: Normal Exam ACR BI-RADS Category 2: Benign Finding(s) [id number]
== END ==
PROVIDERS: PCP Family Medicine; Visit Provider Family Medicine
DX: Z12.31 Encounter for screening mammogram for malignant neoplasm of breast (principal); Z80.3 Family history of malignant neoplasm of breast
CPT/HCPCS: 77063; 77067

== ENCOUNTER → 2019-03-10 13:55 | Outpatient (CLI) | payer OTHER, SELFPAY ==
--- NOTE | 2019-03-10 13:58 | DI.RAD.S_ITS ---
PROCEDURE: XR CHEST 2V INDICATIONS: Lymphadenopathy TECHNIQUE: 2 views of the chest were acquired. COMPARISON: [facility], , CHEST 2 VIEW, 09/13/2015, 12:49. FINDINGS: Surgical changes and devices: Scattered surgical clips. Lungs and pleura: Lungs are clear. No pleural effusions or pneumothorax. Mediastinum: Mediastinal contours are normal. Heart size is normal. Small hiatal hernia as before. Bones and chest wall: No suspicious bony abnormalities. Soft tissues appear unremarkable. IMPRESSION: No acute disease Dictated by: Pranav Mcgarry M.D. on 03/14/2019 at 12:08 Approved by: Pranav Mcgarry M.D. on 03/14/2019 at 12:10
[2019-03-10 14:49] LABS: Alanine Aminotransferase 16 IU/L (9-52); Albumin 4.4 g/dL (3.5-5.0); Albumin Globulin Ratio 1.4 (1.0-2.8); Alkaline Phosphatase 87 U/L (38-126); Aspartate Aminotransferase 23 IU/L (14-36); Bilirubin Total 0.6 mg/dL (0.2-1.3); Blood Urea Nitrogen 7 mg/dL (7-17); Calcium 9.6 mg/dL (8.4-10.2); Carbon Dioxide 28 mmol/L (22-32); Chloride 102 mmol/L (98-107); Estimated Glomerular Filt Rate > 60.0 mL/min (>60); Globulin 3.1 g/dL (1.7-4.1); Glucose 96 mg/dL (70-100); HEMOLYSIS < 15 (0-50); Potassium 3.9 mmol/L (3.4-5.1); Sodium 137 mmol/L (137-145); Total Protein 7.5 g/dL (6.3-8.2)
[2019-03-10 14:50] LABS: Add Manual Diff / Slide Review NO; Basophils Absolute Auto 0 /uL (0-100); Basophils Percent Auto 0.9 % (0-2); Eosinophils Absolute Auto 100 /uL (0-450); Hemoglobin 14.2 g/dL (12.0-16.0); Lymphocytes Absolute Auto 2600 /uL (1100-4500); Lymphocytes Percent Auto 47.9 % (25-40); Mean Corpuscular HGB Conc 33.7 % (30-36); Mean Corpuscular Hemoglobin 31.8 PG (26-34); Mean Corpuscular Volume 94.4 fL (80-100); Monocytes Absolute Auto 400 /uL (0-900); Monocytes Percent Auto 6.8 % (3-14); Neutrophils Absolute Auto 2300 /uL (1500-7000); Neutrophils Percent Auto 43.4 % (50-75); Platelet Count 299 X10^3/uL (150-400); Red Blood Cell Count 4.45 X10^6/uL (4.0-5.2); Red Cell Distribution Width 14.2 % (11.6-14.8); White Blood Cell Count 5.4 X10^3/uL (4.5-11.0)
[2019-03-10 14:57] LABS: C-Reactive Protein Quant < 0.5 mg/dL (<1.0)
[2019-03-10 15:18] LABS: Hemoglobin A1C% w Est Avg Glu 5.1 % (4.0-6.0)
[2019-03-10 15:51] LABS: Erythrocyte Sedimentation Rate 13 MM/HR (0-20)
[2019-03-10 15:58] LABS: Thyroid Stimulating Hormone 2.08 uIU/mL (0.47-4.68)
== END ==
PROVIDERS: PCP Family Medicine; Visit Provider Family Medicine
DX: R59.1 Generalized enlarged lymph nodes (principal)
CPT/HCPCS: 36415; 71046; 80053; 83036; 84443; 85025; 85651; 86140

== ENCOUNTER → 2019-03-17 12:27 | Outpatient (CLI) | payer OTHER, SELFPAY ==
--- NOTE | 2019-03-17 12:31 | DI.CT.S_ITS ---
PROCEDURE: CT ABDOMEN PELVIS W CON INDICATIONS: Enlarged lymph nodes. The patient has esophagectomy in 2010 for esophageal cancer. TECHNIQUE: After the administration of oral and intravenous contrast, 5 mm thick sections acquired from the diaphragms to the symphysis. 5 mm thick coronal and sagittal reformats were performed. For radiation dose reduction, the following was used: automated exposure control, adjustment of mA and/or kV according to patient size. COMPARISON: [facility], CR, XR CHEST 2V, 03/10/2019, 13:59. [facility], CT, ABDOMEN/PELVIS WITH CONTRAST, 05/26/2017, 7:49. FINDINGS: Image quality: Excellent. ABDOMEN: Lung bases: Lung bases are clear. Heart size is normal. There is esophagectomy and gastric pull-through, which is partially visualized. Solid organs: There is a 1.3 cm vague enhancing nodule in the posterior segment of the right hepatic lobe. This was not definitely seen on the last exam. Liver is normal in size and enhancement. Gallbladder is normal. Biliary system is non-dilated. Pancreas enhances normally. Spleen is normal in size and enhancement. No adrenal nodules. Kidneys are normal in size and enhancement, without hydronephrosis. Peritoneum and bowel: Stomach, small bowel, and colon loops are normal in caliber and wall thickness. There are scattered diverticula. No active diverticulitis. No free fluid or air. Nodes and vessels: No retroperitoneal or mesenteric adenopathy. Aorta and inferior vena cava are normal in caliber. Miscellaneous: No ventral hernias. PELVIS: Genitourinary: Bladder wall thickness is normal. Miscellaneous: No inguinal hernias. Slightly prominent inguinal lymph nodes are noted bilaterally measuring up to 1 cm in short axis. These lymph nodes demonstrate fatty hilum, likely reactive. Bones: No suspicious bony lesions. No vertebral body compression fractures. IMPRESSION: 1. Borderline sized inguinal lymph nodes demonstrate fatty patricia, most likely reactive. Recommend clinical followup 2. A 1.3 cm enhancing nodule in the posterior segment of right hepatic lobe. This finding is new since the last exam. In this patient with a history of esophageal cancer, liver protocol MRI with and without contrast is suggested for further evaluation. 3. Diverticulosis without acute diverticulitis. 4. Esophagectomy and gastric pull-through. Dictated by: Pippa Fontanez M.D. on 03/17/2019 at 17:23 Approved by: Pippa Fontanez M.D. on 03/17/2019 at 18:28
== END ==
PROVIDERS: Family Provider Internal Medicine Gastroenterology; PCP Family Medicine; Visit Provider Family Medicine
DX: R59.1 Generalized enlarged lymph nodes (principal); K76.9 Liver disease, unspecified; K57.90 Diverticulosis of intestine, part unspecified, without perforation or abscess without bleeding; Z85.01 Personal history of malignant neoplasm of esophagus
CPT/HCPCS: 74177; Q9967

== ENCOUNTER → 2019-04-04 13:11 | Outpatient (CLI) | payer OTHER, SELFPAY ==
--- NOTE | 2019-04-04 13:12 | DI.MRI.S_ITS ---
PROCEDURE: MR ABDOMEN WO/W CON INDICATIONS: abnormal CT-liver nodule TECHNIQUE: Coronal HASTE, axial 2D FLASH in- and [id number]; axial breath-hold T2 FSE. Dynamic axial VIBE during the administration of contrast; post-contrast coronal VIBE or 2D FLASH with fat saturation from the hepatic dome to the iliac crests. Optional diffusion weighted imaging and ADC may be performed. COMPARISON: [facility], CT, THORAX WITHOUT CONTRAST, 08/17/2013, 11:54. [facility], CT, ABDOMEN/PELVIS WITH CONTRAST, 05/26/2017, 7:49. [facility], CT, CT ABDOMEN PELVIS W CON, 03/17/2019, 13:24. FINDINGS: Image quality: Excellent. Lung bases: No basal pleural effusions. Heart size is normal. Solid organs: Liver is normal in size and enhancement except for the small area of CT contrast enhancement seen at the right posterior hepatic segment, subcapsular. This was seen on prior CT scan in 03/17/19 centered on series 2 image 23. On the current MR examination on pre-contrast imaging this represents a small low signal intensity on T1 imaging measuring 10 mm in maximal dimension. On the initial early phase of contrast enhanced imaging discrete peripheral nodular enhancement can be seen along its borders seen on series 18 image 37. This has prominently elevated diffusion signal seen on series 21 image 8 with fill-in by contrast enhancement on delayed postcontrast fat-suppressed T1 imaging (series 26 image 38). These findings are consistent with a small hemangioma demonstrating flash filling on the CT scan. Gallbladder appears normal. Biliary system is non dilated. Pancreas is normal in morphology. Spleen is normal in size and enhancement. No adrenal nodules. Both kidneys demonstrate normal size and enhancement, without hydronephrosis. Nodes and vessels: No retroperitoneal or mesenteric adenopathy by size criteria. Aorta and inferior vena cava are normal in size. Bowel and peritoneum: Unenhanced bowel loops are normal in caliber. No free fluid. Bones and soft tissues: No ventral hernias. Bone marrow is normal in overall signal. IMPRESSION: 1 cm right posterior hepatic lobe subcapsular hepatic hemangioma produces the elevated contrast enhancement seen on earlier CT scanning from 03/17/19. If clinically desired a targeted single organ ultrasound could be utilized to locate this structure to confirm stability of appearance over time. Dictated by: Humberto Membreno M.D. on 04/04/2019 at 16:21 Approved by: Humberto Membreno M.D. on 04/04/2019 at 16:29
== END ==
PROVIDERS: Family Provider Internal Medicine Gastroenterology; PCP Family Medicine; Visit Provider Family Medicine
DX: K76.89 Other specified diseases of liver (principal); D18.09 Hemangioma of other sites; R93.5 Abnormal findings on diagnostic imaging of other abdominal regions, including retroperitoneum
CPT/HCPCS: 74183; A9579

== ENCOUNTER → 2019-08-24 08:45 | Outpatient (CLI) | payer OTHER, SELFPAY ==
[2019-08-24 09:46] LABS: Add Manual Diff / Slide Review NO; Basophils Absolute Auto 0 /uL (0-100); Basophils Percent Auto 0.7 % (0-2); Eosinophils Absolute Auto 100 /uL (0-450); Eosinophils Percent Auto 1.6 % (2-4); Hematocrit 39.2 % (36-46); Hemoglobin 13.3 g/dL (12.0-16.0); Lymphocytes Absolute Auto 1800 /uL (1100-4500); Lymphocytes Percent Auto 32.7 % (25-40); Mean Corpuscular Hemoglobin 31.3 PG (26-34); Monocytes Absolute Auto 500 /uL (0-900); Monocytes Percent Auto 8.9 % (3-14); Neutrophils Absolute Auto 3100 /uL (1500-7000); Neutrophils Percent Auto 56.1 % (50-75); Platelet Count 291 X10^3/uL (150-400); Red Blood Cell Count 4.26 X10^6/uL (4.0-5.2); Red Cell Distribution Width 13.3 % (11.6-14.8); White Blood Cell Count 5.5 X10^3/uL (4.5-11.0)
[2019-08-24 09:57] LABS: Alanine Aminotransferase 14 IU/L (<35); Albumin 4.1 g/dL (3.5-5.0); Albumin Globulin Ratio 1.4 (1.0-2.8); Alkaline Phosphatase 73 U/L (38-126); Aspartate Aminotransferase 24 IU/L (14-36); Bilirubin Total 0.6 mg/dL (0.2-1.3); Blood Urea Nitrogen 9 mg/dL (7-17); Calcium 9.1 mg/dL (8.4-10.2); Carbon Dioxide 30 mmol/L (22-32); Chloride 101 mmol/L (98-107); Cholesterol 214 mg/dL (140-199); Estimated Glomerular Filt Rate > 60.0 mL/min (>60); Globulin 2.9 g/dL (1.7-4.1); Glucose 87 mg/dL (70-100); HDL Cholesterol 76 mg/dL (40-60); HEMOLYSIS < 15 (0-50); LDL Cholesterol Calculated 119 mg/dL (<100); Potassium 3.9 mmol/L (3.4-5.1); Sodium 139 mmol/L (137-145); Triglycerides 93 mg/dL (35-150)
[2019-08-24 10:20] LABS: Free T4, Direct Thyroxine 1.07 ng/dL (0.78-2.19)
[2019-08-24 10:21] LABS: Cortisol Random 11.1 ug/dL
[2019-08-24 10:34] LABS: Thyroid Stimulating Hormone 1.37 uIU/mL (0.47-4.68)
[2019-08-24 10:40] LABS: Vitamin B12 244 pg/mL (239-931)
[2019-08-26 15:39] LABS: Adrenocorticotropic Hormone 19 pg/mL (6-50)
== END ==
PROVIDERS: Family Provider Internal Medicine Gastroenterology; PCP Family Medicine; Visit Provider Family Medicine
DX: R53.83 Other fatigue (principal)
CPT/HCPCS: 36415; 80053; 80061; 82024; 82533; 82607; 83001; 83002; 84403; 84439; 84443; 84481; 85025

== ENCOUNTER 2020-08-12 10:11 | Emergency (ER) | payer OTHER, SELFPAY ==
[2020-08-12 10:24] VITALS: BP 135/81; PULSE 75; RESP 18; TEMP 36.8; O2SAT 96; BMI 30.7
--- NOTE | 2020-08-12 10:28 | ED.EXTPRO ---
HPI - Extremity Problem General Chief complaint: Extremity Problem,Nontraumatic Stated complaint: CANT WALK 2X WEEKS RT SIDE Time Seen by Provider: 08/12/20 10:26 Source: patient Mode of arrival: Wheelchair Limitations: physical limitation History of Present Illness HPI Narrative: Patient is a 60-year-old female who presents with right leg pain. Ongoing for the last 2 weeks. She denies any injury. She does have a history of sciatica and L4-L5 fusion she says this is nothing like that she has no back pain or nerve her sciatic pain. She does have pain in her medial thigh and iti radiates to her knee and pain in her calf. Pain is so unbearable she is having difficulty walking. She denies any fever or chills. She takes hydrocodone for pain regularly and it is not helping. She has had Toradol in the past she it is listed as an allergy however she says she has had it without issue before. MD Complaint: extremity pain Location: right and lower extremity Related Data Previous Rx's Medication Instructions Recorded citalopram 20 mg tablet 20 mg PO DAILY #60 tab 08/23/19 hydrocodone 5 mg-acetaminophen 325 1 - 2 tab PO TID PRN #90 tab 12/14/19 mg tablet testosterone cream 1% 0.5 gram TOPICAL DAILY #30 gram 12/14/19 albuterol sulfate 90 mcg/actuation 2 puff INHALATION Q4HP PRN #8.5 gm 02/01/20 aerosol inhaler prednisone 40 mg PO DAILY #10 tab 08/12/20 Allergies Allergy/AdvReac Type Severity Reaction Status Date / Time ketorolac [KETOROLAC] Allergy Severe THROAT Verified 09/07/19 12:03 SWELLING FROM TORADOL NSAIDS (Non-Steroidal AdvReac Severe Puking Verified 09/07/19 12:03 Anti-Inflamma Blood Review of Systems Review of Systems Narrative: GENERAL: Denies chills, fatigue, malaise, fever, sweats, travel HEENT: Denies sinus pain, ear pain, sore throat, difficulty swallowing, neck pain RESPIRATORY: Denies dyspnea, cough, wheezing, hemoptysis, sputum. CARDIOVASCULAR: Denies chest pain, palpitations, orthopnea, edema GASTROINTESTINAL: Denies nausea, vomiting, abdominal pain, diarrhea, constipation, melena. : Denies dysuria, frequency, incontinence, hematuria, urinary retention, flank pain. MUSCULOSKELETAL: See HPI SKIN: No rash, no erythema, no pruritus NEUROLOGIC: Denies weakness, dizziness, headache, numbness, change in speech, confusion PSYCHIATRIC: No concerning psychosocial issues. 12 point review of systems is negative except for those stated above and HPI Patient History Surgical History History of back surgery (Resolved) History of esophageal surgery (Resolved) History of fundoplication (Resolved) Hx of total knee replacement (Resolved) Hx of tubal ligation (Resolved) Social History marital status: household members: spouse occupational status: employed Smoking Status: Current every day smoker alcohol intake: never substance use type: does not use Smoking Status: Current every day smoker alcohol intake frequency: holidays/special occasions only Substance Use Type: does not use Exam Initial Vital Signs Initial Vital Signs: Vital Signs Temperature 98.2 F 08/12/20 10:24 Pulse Rate 75 08/12/20 10:24 Respiratory Rate 18 08/12/20 10:24 Blood Pressure 135/81 08/12/20 10:24 Pulse Oximetry 96 08/12/20 10:24 GENERAL: Well-appearing, well-nourished and in no acute distress. HEENT: Head atraumatic,EOMI, pupils reactive, face symmetric, moist mucous membranes CARDIOVASCULAR: Regular rate and rhythm without murmurs, rubs or gallops. RESPIRATORY: Breath sounds equal bilaterally, no wheezes rales or rhonchi. ABDOMEN: Soft, nontender. Normoactive bowel sounds all 4 quadrants. No guarding or rebound. EXTREMITIES: Normal range of motion, no clubbing or edema. Neurovascularly intact Right lower extremity mild calf pain no significant swelling, no hip pain no real knee pain distal pedal pulse intact NEUROLOGICAL: Alert and oriented x4. SKIN: Warm, dry, no laceration, no petechiae, no rashes or lesions. Course Orders Ordered: ED Orders 08/12/20 10:37 US periph venous low extrem rt Stat XR hip w pel if done RT 2V Stat XR knee RT 3V Stat Discontinued Medications Ketorolac Tromethamine (Toradol) 30 mg IM NOW ONE Stop: 08/12/20 10:38 Last Admin: 08/12/20 11:00 Dose: 30 mg Documented by: MAYNOR Vital Signs Vital signs: Vital Signs - 8 hr 08/12/20 10:24 08/12/20 12:39 Temperature 98.2 F Pulse Rate 75 75 Respiratory Rate 18 18 Blood Pressure 135/81 135/84 Pulse Oximetry 96 98 MDM - Extremity (Nontraumatic) Imaging Data Extremity x-ray #1: Radiologist's Impression: PROCEDURE: XR HIP W PEL IF DONE RT 2V INDICATIONS: Hip pain TECHNIQUE: Two views of the hip were acquired. COMPARISON: None. FINDINGS: Bones: No fractures or dislocations. No suspicious bony lesions. The visualized pelvic ring appears intact. Hip joint spaces maintained. Sacroiliac joint spaces maintained. Soft tissues: No suspicious soft tissue calcifications or masses. IMPRESSION: No acute finding. Dictated by: Trenton Baker M.D. on 08/12/2020 at 10:50 Approved by: Trenton Baker M.D. on 08/12/2020 at 10:51 Extremity x-ray #2: Radiologist's Impression: PROCEDURE: XR KNEE RT 3V INDICATIONS: pain TECHNIQUE: 3 views of the knee were acquired. COMPARISON: None. FINDINGS: Bones: No fractures or dislocations. No suspicious bony lesions. Moderate tricompartmental osteoarthritis , worst in the lateral femorotibial compartment. Soft tissues: No joint effusion. No suspicious soft tissue calcifications. IMPRESSION: No acute finding. Moderate osteoarthritic change. Dictated by: Trenton Baker M.D. on 08/12/2020 at 10:51 Approved by: Trenton Baker M.D. on 08/12/2020 at 10:52 US - DVT: Radiologist's Impression: PROCEDURE: US PERIPH VENOUS LOW EXTREM RT INDICATIONS: swelling calf pain TECHNIQUE: Real-time imaging, as well as color and pulse Doppler interrogation, were performed of the lower extremity deep veins from the inguinal ligament to the popliteal fossa. COMPARISON: [facility] Ultrasound, US, VEINS EXTREMITY DUPLEX LTD, 09/20/2012, 11:37. [facility], US, VEINS EXTREMITY DUPLEX LTD, 09/16/2012, 7:59. [facility], US, VEINS EXTREMITY DUPLEX,BILAT, 07/23/2012, 14:17. [facility], US, VEINS EXTREMITY DUPLEX,BILAT, 04/16/2011, 10:40. FINDINGS: The common femoral, femoral and popliteal veins are normally compressible, and free of intraluminal thrombus. Color and pulse Doppler demonstrate normal phasic intraluminal flow. There is normal augmentation response to distal compression maneuver. IMPRESSION: Negative for deep venous thrombosis. Dictated by: Faustino Ferrer M.D. on 08/12/2020 at 10:32 MDM Narrative Medical decision making narrative: Patient is ambulatory to the restroom her pain is significantly improved after Toradol. 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 I will give her few days of prednisone which she has had in the past. She is offered crutches but does not want them Discharge Plan Departure Patient Disposition: Home Clinical Impression: Acute pain of right lower extremity Instructions: DI for Leg Pain Activity Restrictions/Additional Instructions: *You have been diagnosed with right leg pain *What to do: At this time no blood clot, x-rays are negative. I recommend they follow up with her primary care provider *Continue to take medications as directed Prednisone 40 mg once a day for 5 days--> SENT TO [facility] [place] *Follow up with your primary care provider in 2-3 days *Return to ER if you should have increased weakness, fever swelling or any new, worsening or concerning symptoms Prescriptions: New prednisone 20 mg tablet 40 mg PO DAILY Qty: 10 RF: 0 No Action hydrocodone-acetaminophen [[place]] 5-325 mg tablet 1 - 2 tab PO TID PRN (Reason: pain) Qty: 90 RF: 0 testosterone cream 1% 0.5 gram topical DAILY Qty: 30 RF: 0 albuterol sulfate [Proventil HFA] 90 mcg/actuation HFA aerosol inhaler 2 puff inhalation Q4HP PRN (Reason: shortness of breath or wheezing) Qty: 8.5 RF: 3 citalopram 20 mg tablet 20 mg PO DAILY Qty: 60 RF: 3 Referrals: Conrad Desai MD [Primary Care Provider] -
--- NOTE | 2020-08-12 10:37 | DI.RAD.S_ITS ---
PROCEDURE: XR HIP W PEL IF DONE RT 2V INDICATIONS: Hip pain TECHNIQUE: Two views of the hip were acquired. COMPARISON: None. FINDINGS: Bones: No fractures or dislocations. No suspicious bony lesions. The visualized pelvic ring appears intact. Hip joint spaces maintained. Sacroiliac joint spaces maintained. Soft tissues: No suspicious soft tissue calcifications or masses. IMPRESSION: No acute finding. Dictated by: Trenton Baker M.D. on 08/12/2020 at 10:50 Approved by: Trenton Baker M.D. on 08/12/2020 at 10:51
--- NOTE | 2020-08-12 10:37 | DI.US.S_ITS ---
PROCEDURE: US PERIPH VENOUS LOW EXTREM RT INDICATIONS: swelling calf pain TECHNIQUE: Real-time imaging, as well as color and pulse Doppler interrogation, were performed of the lower extremity deep veins from the inguinal ligament to the popliteal fossa. COMPARISON: [facility] Ultrasound, US, VEINS EXTREMITY DUPLEX LTD, 09/20/2012, 11:37. [facility], US, VEINS EXTREMITY DUPLEX LTD, 09/16/2012, 7:59. Sur[facility], US, VEINS EXTREMITY DUPLEX,BILAT, 07/23/2012, 14:17. [facility], US, VEINS EXTREMITY DUPLEX,BILAT, 04/16/2011, 10:40. FINDINGS: The common femoral, femoral and popliteal veins are normally compressible, and free of intraluminal thrombus. Color and pulse Doppler demonstrate normal phasic intraluminal flow. There is normal augmentation response to distal compression maneuver. IMPRESSION: Negative for deep venous thrombosis. Dictated by: Faustino Ferrer M.D. on 08/12/2020 at 10:32 Approved by: Faustino Ferrer M.D. on 08/12/2020 at 10:47
--- NOTE | 2020-08-12 10:37 | DI.RAD.S_ITS ---
PROCEDURE: XR KNEE RT 3V INDICATIONS: pain TECHNIQUE: 3 views of the knee were acquired. COMPARISON: None. FINDINGS: Bones: No fractures or dislocations. No suspicious bony lesions. Moderate tricompartmental osteoarthritis , worst in the lateral femorotibial compartment. Soft tissues: No joint effusion. No suspicious soft tissue calcifications. IMPRESSION: No acute finding. Moderate osteoarthritic change. Dictated by: Trenton Baker M.D. on 08/12/2020 at 10:51 Approved by: Trenton Baker M.D. on 08/12/2020 at 10:52
[2020-08-12] MEDS: KETOROLAC 60 MG/2 ML VIAL 30 MG IM (11:00)
[2020-08-12 12:39] VITALS: BP 135/84; PULSE 75; RESP 18; O2SAT 98
== END 2020-08-12 12:39 | disposition home or self-care (01) ==
PROVIDERS: Emergency Provider Emergency Medicine; Family Provider Internal Medicine Gastroenterology; PCP Family Medicine
DX: M79.604 Pain in right leg (principal); M25.551 Pain in right hip
CPT/HCPCS: 73502; 73562; 93971; 96372; 99283; 99284; J1885

== ENCOUNTER → 2021-01-11 13:05 | Outpatient (CLI) | payer OTHER, SELFPAY ==
[2021-01-11] MEDS: COVID-19 VACC #1, MRNA(MOD) 100 MCG/0.5 ML VIAL IM (13:08)
== END ==
PROVIDERS: Family Provider Internal Medicine Gastroenterology; PCP Family Medicine; Visit Provider Internal Medicine
DX: Z23 Encounter for immunization (principal)
CPT/HCPCS: 0011A; 91301

== ENCOUNTER → 2021-02-08 12:57 | Outpatient (CLI) | payer OTHER, SELFPAY ==
[2021-02-08] MEDS: COVID-19 VACC #2, MRNA(MOD) 100 MCG/0.5 ML VIAL IM (13:00)
== END ==
PROVIDERS: Family Provider Internal Medicine Gastroenterology; PCP Family Medicine; Visit Provider Internal Medicine
DX: Z23 Encounter for immunization (principal)
CPT/HCPCS: 0012A; 91301

== ENCOUNTER → 2021-03-07 08:54 | Outpatient (CLI) | payer OTHER, SELFPAY ==
[2021-03-07 09:35] LABS: Add Manual Diff / Slide Review NO; Basophils Absolute Auto 100 /uL (0-100); Basophils Percent Auto 1.2 % (0-2); Eosinophils Absolute Auto 100 /uL (0-450); Eosinophils Percent Auto 2.6 % (2-4); Hematocrit 42.4 % (36-46); Hemoglobin 14.3 g/dL (12.0-16.0); Lymphocytes Absolute Auto 2400 /uL (1100-4500); Lymphocytes Percent Auto 43.7 % (25-40); Mean Corpuscular HGB Conc 33.6 % (30-36); Mean Corpuscular Hemoglobin 31.6 PG (26-34); Monocytes Absolute Auto 400 /uL (0-900); Monocytes Percent Auto 7.5 % (3-14); Neutrophils Absolute Auto 2500 /uL (1500-7000); Platelet Count 341 X10^3/uL (150-400); Red Blood Cell Count 4.51 X10^6/uL (4.0-5.2); Red Cell Distribution Width 13.8 % (11.6-14.8); White Blood Cell Count 5.5 X10^3/uL (4.5-11.0)
[2021-03-07 09:56] LABS: Alanine Aminotransferase 16 IU/L (<35); Albumin 4.2 g/dL (3.5-5.0); Albumin Globulin Ratio 1.4 (1.0-2.8); Alkaline Phosphatase 85 U/L (38-126); Aspartate Aminotransferase 24 IU/L (14-36); BUN Creatinine Ratio 20.3 (6-22); Bilirubin Total 0.6 mg/dL (0.2-1.3); Blood Urea Nitrogen 12 mg/dL (7-17); Calcium 11.1 mg/dL (8.4-10.2); Carbon Dioxide 31 mmol/L (22-32); Chloride 100 mmol/L (98-107); Cholesterol 220 mg/dL (140-199); Estimated Glomerular Filt Rate > 60.0 mL/min (>60); Globulin 2.9 g/dL (1.7-4.1); Glucose 107 mg/dL (70-100); HEMOLYSIS < 15 (0-50); Lactate Dehydrogenase 395 U/L (313-618); Magnesium 1.6 mg/dL (1.6-2.3); Potassium 4.1 mmol/L (3.4-5.1); Sodium 136 mmol/L (137-145); Total Protein 7.1 g/dL (6.3-8.2); Triglycerides 84 mg/dL (35-150)
[2021-03-07 10:06] LABS: HDL Cholesterol 134 mg/dL (40-60); LDL Cholesterol Calculated 69 mg/dL (<100)
[2021-03-07 10:22] LABS: TSH w/ Reflex to FT4 2.66 uIU/mL (0.47-4.68)
== END ==
PROVIDERS: Family Provider Internal Medicine Gastroenterology; PCP Family Medicine; Referring Provider Family Medicine; Visit Provider Family Medicine
DX: R59.9 Enlarged lymph nodes, unspecified (principal); E04.1 Nontoxic single thyroid nodule; R25.2 Cramp and spasm; R53.83 Other fatigue
CPT/HCPCS: 36415; 80053; 80061; 83615; 83735; 84443; 85025

== ENCOUNTER 2021-12-15 16:30 | Emergency (ER) | payer OTHER, SELFPAY ==
[2021-12-15 16:35] VITALS: BP 134/62; PULSE 90; RESP 16; TEMP 36.8; O2SAT 96; BMI 29.8
--- NOTE | 2021-12-15 16:41 | DI.RAD.S_ITS ---
PROCEDURE: XR WRIST RT MIN 3V INDICATIONS: injury TECHNIQUE: 4 views of the wrist were acquired. COMPARISON: None. FINDINGS: Bones: No fractures or dislocations. No suspicious bony lesions. Scaphoid view: Scaphoid intact Soft tissues: No suspicious soft tissue calcifications. IMPRESSION: No evidence acute bony abnormality of the right wrist. If clinical suspicion and/or symptoms persist, further assessment with repeat plain films, or advanced imaging (e.g., CT, MRI, or bone scan) may be helpful for further assessment. Dictated by: Ricky Vidal M.D. on 12/15/2021 at 16:54 Approved by: Ricky Vidal M.D. on 12/15/2021 at 16:55
--- NOTE | 2021-12-15 18:05 | ED.GENADULT ---
HPI - General Adult General Chief complaint: Extremity Injury, Upper Stated complaint: right wrist injury Time Seen by Provider: 12/15/21 17:58 Source: patient Mode of arrival: Ambulatory History of Present Illness HPI narrative: [age] old female is here for evaluation for right wrist injury. She was trying to get something out of her pantry when a can of food came down and hit her on the back of the wrist. No other injuries from the event. Has placed ice over the area prior to arrival. Related Data Previous Rx's Medication Instructions Recorded prednisone 20 mg tablet 40 mg PO DAILY #10 tab 08/12/20 albuterol sulfate 90 mcg/actuation 2 puff INHALATION Q4HP PRN #8.5 gm 12/10/21 aerosol inhaler (Proventil HFA) hydrocodone 5 mg-acetaminophen 325 1 - 2 tab PO TID PRN #90 tab 12/10/21 mg tablet Allergies Allergy/AdvReac Type Severity Reaction Status Date / Time NSAIDS (Non-Steroidal AdvReac Severe Puking Verified 03/07/21 08:38 Anti-Inflamma Blood Review of Systems Musculoskeletal Musculoskeletal: Reports system reviewed and no additional complaints, except as documented and Reports as per HPI Integumentary/Breasts Skin/Breast: Reports system reviewed and no additional complaints, except as documented Neurologic Comments: Some tingling down into her right hand and upper right forearm Hematologic/Lymphatic On Anticoagulants: No Patient History Medical History Osteoarthritis of right knee Swollen lymph nodes Surgical History History of back surgery History of esophageal surgery History of fundoplication Hx of total knee replacement Hx of tubal ligation Social History marital status: household members: spouse occupational status: employed Smoking Status: Current every day smoker alcohol intake: never substance use type: does not use Smoking Status: Current every day smoker tobacco type: vaping alcohol intake frequency: holidays/special occasions only Substance Use Type: does not use Exam Initial Vital Signs Initial Vital Signs: Vital Signs Temperature 98.2 F 12/15/21 16:35 Pulse Rate 90 12/15/21 16:35 Respiratory Rate 16 12/15/21 16:35 Blood Pressure 134/62 12/15/21 16:35 Pulse Oximetry 96 12/15/21 16:35 HENMT Head: normal to inspection and normocephalic Cardio Pulses: radial pulses present on the right Skin General: no rashes or lesions noted Neuro General: patient alert, patient awake and patient oriented x3 Sensory Exam: no sensory deficits noted Extrem Other: Tenderness to palpation over the ulnar styloid of the right wrist Procedures Orthopedic Splinting/Casting Injury #1: Side: right Upper Extremity Injury Location: wrist Upper Extremity Immobilizer: Alejandro wrap Post splinting neuro exam: no change Post splinting vascular exam: no change Placed by: Nursing Course Orders Ordered: ED Orders 12/15/21 16:41 XR wrist RT min 3V Stat Vital Signs Vital signs: Vital Signs - 8 hr 12/15/21 16:35 Temperature 98.2 F Pulse Rate 90 Respiratory Rate 16 Blood Pressure 134/62 Pulse Oximetry 96 Medical Decision Making Imaging Data Extremity x-ray #1: Radiologist's Impression: [address] [id number] XRay Report Signed Patient: Dior Godinez MR#: [id number] : 1960 Acct:[id number] Age/Sex: 61 / F Date of Service: 12/15/21 Loc: ED Accession Number: [id number] ?? Procedure: XR wrist RT min 3V Ordering Provider: Dorothea Victoria D.O. PROCEDURE:? XR WRIST RT MIN 3V ? INDICATIONS: injury ? TECHNIQUE:? 4 views of the wrist were acquired.? ? COMPARISON:? None. ? FINDINGS:? ? Bones:? No fractures or dislocations.? No suspicious bony lesions.? ? Scaphoid view:? Scaphoid intact ? Soft tissues:? No suspicious soft tissue calcifications.? ? IMPRESSION:? No evidence acute bony abnormality of the right wrist. ? If clinical suspicion and/or symptoms persist, further assessment with repeat plain films, or advanced imaging (e.g., CT, MRI, or bone scan) may be helpful for further assessment. ? Dictated by: Ricky Vidal M.D. on 12/15/2021 at 16:54 ? ? Approved by: Ricky Vidal M.D. on 12/15/2021 at 16:55? MDM Narrative Medical decision making narrative: No fractures are noted on the x-rays. No other injuries the event. Did discuss conservative measures that she could try to help the symptoms and icing the area she is given return precautions. She expressed understanding and agreement. Discharge Plan Departure Patient Disposition: Home Clinical Impression: Contusion of right wrist Instructions: How To Perform RICE (Rest, Ice, Compress, Elevate), How to Apply an Elastic Wrap on Wrist Activity Restrictions/Additional Instructions: There were no fractures noted on the x-rays. You can use the Alejandro bandage or a wrist splint for your comfort. Also recommend ice over the area. He can take Tylenol/ibuprofen for any discomfort. Return to the emergency department for any new symptoms. Prescriptions: No Action albuterol sulfate [Proventil HFA] 90 mcg/actuation HFA aerosol inhaler 2 puff inhalation Q4HP PRN (Reason: shortness of breath or wheezing) Qty: 8.5 3RF hydrocodone-acetaminophen 5-325 mg tablet 1 - 2 tab PO TID PRN (Reason: pain) Qty: 90 0RF Rx Instructions: Take 1-2 tabs by mouth up to three times daily as needed for pain. prednisone 20 mg tablet 40 mg PO DAILY Qty: 10 0RF Referrals: Kristofer Deng MD [Primary Care Provider] -
== END 2021-12-15 18:13 | disposition home or self-care (01) ==
PROVIDERS: Emergency Provider Emergency Medicine; Family Provider Internal Medicine Gastroenterology; PCP Family Medicine
DX: S60.211A Contusion of right wrist, initial encounter (principal); W20.8XXA Other cause of strike by thrown, projected or falling object, initial encounter
CPT/HCPCS: 73110; 99282; 99283

== ENCOUNTER → 2022-02-26 13:25 | Outpatient (CLI) | payer OTHER, SELFPAY ==
--- NOTE | 2022-02-26 13:30 | DI.MG.S_ITS ---
BILATERAL DIGITAL DIAGNOSTIC MAMMOGRAM 3D/2D: 02/26/2022 CLINICAL: Right breast pain/lump. Comparison is made to exams dated: 10/21/2018 mammogram, 03/31/2011 mammogram, and 03/03/2013 mammogram - [facility]. The tissue of both breasts is heterogeneously dense. This may lower the sensitivity of mammography. No significant masses, calcifications, or other findings are seen in either breast. Patient reports that the palpable abnormality and bruising are resolved. IMPRESSION: NEGATIVE There is no mammographic evidence of malignancy. Exam findings were conveyed to the patient. Patient is advised to monitor for significant change. Clinical follow-up as needed. A 1 year screening mammogram is recommended. This exam was interpreted at Station ID: [id number]. NOTE: For mammograms, a report in lay terms will be sent to the patient. Approximately 15% of breast malignancies will not be visualized mammographically. In the management of a palpable breast mass, a negative mammogram must not discourage biopsy of a clinically suspicious lesion. Electronically Signed By: John Quinteros M.D. [facility] [place]/:02/26/2022 14:40:44 letter sent: Normal Exam ACR BI-RADS Category 1: Negative [id number]
== END ==
PROVIDERS: Family Provider Internal Medicine Gastroenterology; PCP Family Medicine; Referring Provider Family Medicine; Visit Provider Family Medicine
DX: N63.10 Unspecified lump in the right breast, unspecified quadrant (principal); N64.4 Mastodynia; S20.01XA Contusion of right breast, initial encounter; R59.9 Enlarged lymph nodes, unspecified
CPT/HCPCS: 77066; G0279

== ENCOUNTER → 2022-05-17 08:31 | Outpatient (CLI) | payer OTHER, SELFPAY ==
[2022-05-17 11:12] LABS: Add Manual Diff / Slide Review NO; Basophils Absolute Auto 0 /uL (0-100); Eosinophils Absolute Auto 100 /uL (0-450); Eosinophils Percent Auto 2.6 % (2-4); Hematocrit 41.2 % (36-46); Hemoglobin 13.6 g/dL (12.0-16.0); Lymphocytes Absolute Auto 1600 /uL (1100-4500); Lymphocytes Percent Auto 34.2 % (25-40); Mean Corpuscular Hemoglobin 31.3 PG (26-34); Mean Corpuscular Volume 94.7 fL (80-100); Monocytes Absolute Auto 500 /uL (0-900); Monocytes Percent Auto 9.8 % (3-14); Neutrophils Absolute Auto 2400 /uL (1500-7000); Neutrophils Percent Auto 52.4 % (50-75); Platelet Count 339 X10^3/uL (150-400); Red Blood Cell Count 4.35 X10^6/uL (4.0-5.2); Red Cell Distribution Width 15.1 % (11.6-14.8); White Blood Cell Count 4.6 X10^3/uL (4.5-11.0)
[2022-05-17 11:27] LABS: Alanine Aminotransferase 16 IU/L (<35); Albumin 3.9 g/dL (3.5-5.0); Albumin Globulin Ratio 1.3 (1.0-2.8); Alkaline Phosphatase 87 U/L (38-126); Aspartate Aminotransferase 21 IU/L (14-36); BUN Creatinine Ratio 19.3 (6-22); Bilirubin Total 0.3 mg/dL (0.2-1.3); Blood Urea Nitrogen 11 mg/dL (7-17); Calcium 8.6 mg/dL (8.4-10.2); Carbon Dioxide 30 mmol/L (22-32); Chloride 104 mmol/L (98-107); Cholesterol 192 mg/dL (140-199); Estimated Glomerular Filt Rate > 60 mL/min (>60); Glucose 88 mg/dL (80-110); HDL Cholesterol 89 mg/dL (40-60); HEMOLYSIS < 15 (0-50); LDL Cholesterol Calculated 86 mg/dL (<100); Potassium 4.3 mmol/L (3.4-5.1); Sodium 139 mmol/L (137-145); Total Protein 6.9 g/dL (6.3-8.2); Triglycerides 86 mg/dL (35-150)
[2022-05-17 11:56] LABS: TSH w/ Reflex to FT4 0.98 uIU/mL (0.47-4.68)
[2022-05-18 13:04] LABS: Parathyroid Hormone, Intact 72 pg/mL (15-65)
== END ==
PROVIDERS: Family Provider Internal Medicine Gastroenterology; PCP Family Medicine; Referring Provider Family Medicine; Visit Provider Family Medicine
DX: E78.89 Other lipoprotein metabolism disorders (principal); E83.52 Hypercalcemia; E87.1 Hypo-osmolality and hyponatremia; R73.9 Hyperglycemia, unspecified
CPT/HCPCS: 36415; 80053; 80061; 82310; 83970; 84443; 85025

== ENCOUNTER 2022-05-24 16:47 | Emergency (ER) | payer OTHER, SELFPAY ==
[2022-05-24] VITALS (9 sets, daily range): BP systolic 113–137; BP diastolic 58–85; PULSE 76–89; RESP 18; TEMP 37; O2SAT 94–99; BMI 31.9
[2022-05-24 17:35] LABS: Add Manual Diff / Slide Review NO; Basophils Absolute Auto 100 /uL (0-100); Basophils Percent Auto 0.9 % (0-2); Eosinophils Absolute Auto 100 /uL (0-450); Hematocrit 40.5 % (36-46); Lymphocytes Absolute Auto 2000 /uL (1100-4500); Lymphocytes Percent Auto 25.9 % (25-40); Mean Corpuscular HGB Conc 34.5 % (30-36); Mean Corpuscular Hemoglobin 31.6 PG (26-34); Mean Corpuscular Volume 91.4 fL (80-100); Monocytes Absolute Auto 700 /uL (0-900); Monocytes Percent Auto 9.1 % (3-14); Neutrophils Absolute Auto 4900 /uL (1500-7000); Neutrophils Percent Auto 63.1 % (50-75); Platelet Count 309 X10^3/uL (150-400); Red Blood Cell Count 4.43 X10^6/uL (4.0-5.2); Red Cell Distribution Width 14.3 % (11.6-14.8); White Blood Cell Count 7.7 X10^3/uL (4.5-11.0)
[2022-05-24 17:48] LABS: Alanine Aminotransferase 20 IU/L (<35); Albumin 4.2 g/dL (3.5-5.0); Albumin Globulin Ratio 1.3 (1.0-2.8); Alkaline Phosphatase 100 U/L (38-126); Aspartate Aminotransferase 32 IU/L (14-36); BUN Creatinine Ratio 13.6 (6-22); Bilirubin Total 0.6 mg/dL (0.2-1.3); Blood Urea Nitrogen 9 mg/dL (7-17); Calcium 9.1 mg/dL (8.4-10.2); Carbon Dioxide 30 mmol/L (22-32); Chloride 102 mmol/L (98-107); Estimated Glomerular Filt Rate > 60 mL/min (>60); Globulin 3.2 g/dL (1.7-4.1); Glucose 106 mg/dL (80-110); HEMOLYSIS < 15 (0-50); Lipase 68 U/L (23-300); Magnesium 1.8 mg/dL (1.6-2.3); Potassium 3.9 mmol/L (3.4-5.1); Sodium 136 mmol/L (137-145); Total Protein 7.4 g/dL (6.3-8.2)
--- NOTE | 2022-05-24 18:04 | ED_ITS ---
HPI - General Adult General Chief complaint: Abdominal Pain Stated complaint: abd pain/heart racing/sob/shaky 3x days Time Seen by Provider: 05/24/22 18:04 Source: patient Mode of arrival: Ambulatory History of Present Illness HPI narrative: 62-year-old woman with a history of Barretts esophagus that progressed with resultant esophageal resection and gastric pull-through to recreate her esophagus. Additional abdominal surgeries with all of her care for these issues at [facility] in [place]. She has a history of chronic pain since the age of 18 she manages quite well she notes that she has insulin spikes after her multiple abdominal surgeries over the last 3 days she has been having lower abdominal pain, increasing abdominal cramping overall and is also noticing muscle spasms in the upper lower extremities sometimes to the point where her toes were all her left and she has to physically help them relax leaving aching pain in her calf. She is having regular bowel movements and has not noticed any blood in her stools. She describes no vomiting or nausea. She is not having headaches chest pain or palpitations. Related Data Previous Rx's Medication Instructions Recorded albuterol sulfate 90 mcg/actuation 2 puff inhalation Q4HP PRN 04/28/22 aerosol inhaler (Proventil HFA) shortness of breath or wheezing ##8.5 hydrocodone 5 mg-acetaminophen 325 1 - 2 tab PO TID PRN pain #90 tabs 04/28/22 mg tablet sulfamethoxazole 800 1 tab PO BID #14 tabs 05/24/22 mg-trimethoprim 160 mg tablet (Bactrim DS) Allergies Allergy/AdvReac Type Severity Reaction Status Date / Time NSAIDS (Non-Steroidal AdvReac Severe Puking Verified 05/24/22 17:00 Anti-Inflamma Blood Review of Systems Review of Systems Narrative: Remainder of complete review of systems is otherwise unremarkable except for that included in the HPI. Patient History Medical History (Updated 05/24/22 @ 20:56 by Brynn Trevino MD) Contusion of right breast Osteoarthritis of right knee Swollen lymph nodes Surgical History (Updated 05/24/22 @ 20:45 by Brynn Trevino MD) History of back surgery History of esophageal surgery History of fundoplication Hx of total knee replacement Hx of tubal ligation Social History marital status: household members: spouse occupational status: employed Smoking Status: Current every day smoker alcohol intake: never substance use type: does not use Smoking Status: Current every day smoker tobacco type: vaping alcohol intake frequency: holidays/special occasions only Substance Use Type: does not use Exam Initial Vital Signs Initial Vital Signs: Vital Signs Temperature 98.6 F 05/24/22 17:00 Pulse Rate 89 05/24/22 17:00 Respiratory Rate 18 05/24/22 17:00 Blood Pressure 124/85 05/24/22 17:00 Pulse Oximetry 97 05/24/22 17:00 Oxygen Delivery Method 05/24/22 17:00 General: Healthy appearing, in no acute distress. Able to give a complete and coherent history. Well-nourished well-developed HEENT: Moist mucous membranes, normal sclera with reactive pupils, Neck: No JVD, supple Respiratory: Lungs are clear to auscultation, no wheezing no rales no rhonchi. Full and symmetrical air movement Cardiac: Regular rate and rhythm no murmurs no bruits Abdomen: Soft, mild diffuse tenderness without rebound or guarding, good bowel tones, no flank pain Skin: Warm and dry, no rashes Neurologic: Grossly neurologically intact with no obvious asymmetries or abnormalities Extremities: No trauma, well perfused Psych: Cooperative, appropriate insight and affect Course Orders Ordered: ED Orders 05/24/22 17:06 EKG-12 Lead Stat 05/24/22 17:20 Complete Blood Count AUTO DIFF Stat Comprehensive Metabolic Panel Stat Lipase Stat Magnesium Stat 05/24/22 17:50 Urine Culture Stat Urine Microscopic Stat 05/24/22 18:35 CT abdomen pelvis w con Stat Hydromorphone HCl (Hydromorphone 0.5 Mg Inj) 0.5 mg IV Q15MIN PRN PRN Reason: Pain, Last Admin: 05/24/22 19:05 Dose: 0.5 mg Documented By: HERMINIA Discontinued Medications Sodium Chloride (Normal Saline 0.9%) 1,000 mls @ 1,000 mls/hr IV BOLUS ONE Stop: 05/24/22 19:43 Last Infusion: 05/24/22 20:06 Dose: 0 mls/hr Documented By: Admin: 05/24/22 19:04 Dose: 1,000 mls/hr Documented By: HERMINIA Trimethoprim/Sulfamethoxazole (Trimeth/Sulfa 160/800 (Ds) Tablet) 1 tab PO NOW ONE Stop: 05/24/22 20:57 Vital Signs Vital signs: Vital Signs - 8 hr 05/24/22 17:00 05/24/22 17:49 05/24/22 17:49 Temperature 98.6 F Pulse Rate 89 83 Respiratory Rate 18 Blood Pressure 124/85 137/65 Pulse Oximetry 97 98 Oxygen Delivery Method Room Air 05/24/22 18:00 05/24/22 18:00 05/24/22 18:30 Temperature Pulse Rate 76 Respiratory Rate 18 Blood Pressure 115/58 L 113/73 Pulse Oximetry 97 Oxygen Delivery Method 05/24/22 18:30 05/24/22 19:00 05/24/22 19:30 Temperature Pulse Rate 77 87 79 Respiratory Rate Blood Pressure Pulse Oximetry 97 98 97 Oxygen Delivery Method 05/24/22 20:00 05/24/22 20:30 05/24/22 20:49 Temperature Pulse Rate 80 83 Respiratory Rate Blood Pressure 123/61 Pulse Oximetry 99 94 Oxygen Delivery Method 05/24/22 20:49 Temperature Pulse Rate 81 Respiratory Rate Blood Pressure Pulse Oximetry 98 Oxygen Delivery Method Medical Decision Making Lab Data Result diagrams: 05/24/22 17:20 05/24/22 17:20 Labs: Lab Results 05/24/22 05/24/22 05/24/22 Range/Units 17:20 17:20 17:50 WBC 7.7 (4.5-11.0) X10^3/uL RBC 4.43 (4.0-5.2) X10^6/uL Hgb 14.0 (12.0-16.0) g/dL Hct 40.5 (36-46) % MCV 91.4 D (80-100) fL MCH 31.6 (26-34) PG MCHC 34.5 (30-36) % RDW 14.3 (11.6-14.8) % Plt Count 309 (150-400) X10^3/uL Neut % (Auto) 63.1 (50-75) % Lymph % (Auto) 25.9 (25-40) % [place] % (Auto) 9.1 (3-14) % Eos % (Auto) 1.0 L (2-4) % Baso % (Auto) 0.9 (0-2) % Neut # (Auto) 4900 (9928-4056) /uL Lymph # (Auto) 2000 (0627-8030) /uL [place] # (Auto) 700 (0-900) /uL Eos # (Auto) 100 (0-450) /uL Baso # (Auto) 100 (0-100) /uL Sodium 136 L (137-145) mmol/L Potassium 3.9 (3.4-5.1) mmol/L Chloride 102 (98-107) mmol/L Carbon Dioxide 30 (22-32) mmol/L BUN 9 (7-17) mg/dL Creatinine 0.66 (0.52-1.04) mg/dL Estimated GFR > 60 (>60) mL/min BUN/Creatinine Ratio 13.6 (6-22) Glucose 106 (80-110) mg/dL Calcium 9.1 (8.4-10.2) mg/dL Magnesium 1.8 (1.6-2.3) mg/dL Total Bilirubin 0.6 (0.2-1.3) mg/dL AST 32 (14-36) IU/L ALT 20 (<35) IU/L Alkaline Phosphatase 100 (38-126) U/L Total Protein 7.4 (6.3-8.2) g/dL Albumin 4.2 (3.5-5.0) g/dL Globulin 3.2 (1.7-4.1) g/dL Albumin/Globulin Ratio 1.3 (1.0-2.8) Lipase 68 (23-300) U/L Urine RBC 10-30/hpf H (0-5/HPF) Urine WBC >100/hpf H (0-5/HPF) Ur Squamous Epith Cells None seen (0-5/HPF) Urine Bacteria Many (>30) H (None) Ur Culture Indicated? Specimen cultured Urine Dip Bedside Urine Glucose Negative Bedside Urine Bilirubin - Negative Bedside Urine Ketone - Negative Urine Specific Imperial 1.02 Bedside Urine Occult Blood +++ Bedside Urine pH 6.0 Bedside Urine Protein + 30 Bedside Urine Urobilinogen - Negative Bedside Urine Nitrite + Positive Bedside Urine Leukocytes ++ 125 Esterase Point of care testing: Urine Dip Bedside Urine Glucose Negative Bedside Urine Bilirubin - Negative Bedside Urine Ketone - Negative Urine Specific Imperial 1.02 Bedside Urine Occult Blood +++ Bedside Urine pH 6.0 Bedside Urine Protein + 30 Bedside Urine Urobilinogen - Negative Bedside Urine Nitrite + Positive Bedside Urine Leukocytes ++ [address] scan - abdomen/pelvis: Radiologist's Impression: FINDINGS:? Image quality:? Excellent.? ? Lung bases:? No pleural effusion. Heart:? No significant findings. ? ABDOMEN: Liver:? No focal lesion identified.? The previously seen enhancing focus in the posterior right lobe of the liver is not appreciated.? ? Gallbladder:? Unremarkable. Biliary ducts:? Unremarkable.? ? Pancreas:? Unremarkable.? ? Spleen:? Unremarkable.? ? Adrenal Glands:? Unremarkable.? ? Kidneys and Ureters:? No hydronephrosis.? Small simple appearing cyst in the left kidney. ? Stomach and Bowel:? Gastric pull-through.? No mass identified.? However, the distal esophageal wall appears more thickened.? The neoesophagus is fluid-filled and patulous.? There is herniated fat and the colon just above the diaphragmatic hiatus this site.? Suspect a stricture at the distal esophagus, (/), similar. No small bowel obstruction. ?Diverticulosis.? The appendix is not dilated. Peritoneum:? No abnormal intraperitoneal fluid.? No free air.? ? Ventral Wall: ? No hernia.? Abdominal Nodes:? No retroperitoneal or mesenteric adenopathy by size criteria.? Vessels:? Aorta and inferior vena cava are normal in size.? Moderate plaque. ? PELVIS: Pelvic Organs:? Uterus is absent.? ? Bladder:? Question bladder wall thickening. Pelvic Nodes: No enlarged lymph nodes.? Miscellaneous: No inguinal hernias are seen. ? ? ? Bones:? No suspicious lesion.? No compression fracture.? Multilevel DDD. ? ? IMPRESSION:? 1. Question thickening of the distal neoesophagus.? The visualized portions of the neoesophagus are dilated and fluid-filled. ? 2. Similar narrowing near the diaphragmatic hiatus.? This could be a true stricture or the gastric pylorus. ? 3. Diverticulosis.? No diverticulitis identified.? No small bowel obstruction.? No free fluid. ? 4. Question thickening of the urinary bladder with adjacent stranding.? This raises the possibility of cystitis. ? ? Dictated by: John Quinteros M.D. on 05/24/2022 at 19:30 ? ? ECG Data Interpretation: Sinus rhythm at a rate of 83 Normal intervals, normal axis No acute ischemic changes MDM Narrative Medical decision making narrative: 62-year-old woman with history of multiple abdominal surgeries followed [facility] orta presents with abdominal cramping and dysuria. No evidence of intra- abdominal abscess. She likely has recurrent stricture but is reluctant to have yet another esophageal dilation. She is showing no signs or symptoms of sepsis or pyelonephritis. CT scan does not suggest any additional abdominal abnormality. At this point she is safe for home discharge I am going to treat her urinary tract infection with Septra for [address] scan has been electronically sent to [facility] orta for her software quality assurance analyst to review and she will follow-up with him. Discharge Plan Departure Patient Disposition: Home Clinical Impression: Abdominal cramping Urinary tract infection Qualifiers: Urinary tract infection type: acute cystitis Hematuria presence: without hematuria Qualified Code(s): N30.00 - Acute cystitis without hematuria Instructions: DI for Urinary Tract Infection (UTI) Activity Restrictions/Additional Instructions: Thank you for coming in today. With your complicated GI history and the diffuse abdominal pain a CT scan was done and is actually fairly reassuring. There is a question of some thickening in the distal chavez esophagus that may be a recurrent stricture. There is no bowel obstruction or developing obstruction. There is no sign of intra- abdominal infection. You do have a bladder infection that does not look like it has spread or is causing kidney infection or sepsis. Because you had symptoms for 3 days I am going to treat you with Bactrim/Septra twice a day for 7 days. The prescription was electronically transmitted to [facility]. Regarding your CT scan, this has been electronically forwarded to [facility] orta for your software quality assurance analyst to review. I have also given you a printed copy of report. I would encourage you to follow-up with your software quality assurance analyst. If you find that you are getting worse or develop any new symptoms, please feel free to return to the emergency department for further evaluation. Prescriptions: New sulfamethoxazole-trimethoprim [Bactrim DS] 800-160 mg tablet 1 tab PO BID Qty: 14 0RF No Action albuterol sulfate [Proventil HFA] 90 mcg/actuation HFA aerosol inhaler 2 puff inhalation Q4HP PRN (Reason: shortness of breath or wheezing) Qty: 8.5 3RF hydrocodone-acetaminophen 5-325 mg tablet 1 - 2 tab PO TID PRN (Reason: pain) Qty: 90 0RF Rx Instructions: Take 1-2 tabs by mouth up to three times daily as needed for pain. Referrals: Kristofer Deng MD [Primary Care Provider] -
--- NOTE | 2022-05-24 18:35 | DI.CT.S_ITS ---
PROCEDURE: CT ABDOMEN PELVIS W CON INDICATIONS: 3 days increasing diffuse pain, multiple prior abd surgeries TECHNIQUE: After the administration of oral and IV contrast, axial sections were acquired from the lung bases to the pubic symphysis. Coronal and sagittal reformats were performed. For radiation dose reduction, the following was used: automated exposure control, adjustment of mA and/or kV according to patient size. COMPARISON: [facility], CT, CT ABDOMEN PELVIS W CON, 03/17/2019, 13:24. FINDINGS: Image quality: Excellent. Lung bases: No pleural effusion. Heart: No significant findings. ABDOMEN: Liver: No focal lesion identified. The previously seen enhancing focus in the posterior right lobe of the liver is not appreciated. Gallbladder: Unremarkable. Biliary ducts: Unremarkable. Pancreas: Unremarkable. Spleen: Unremarkable. Adrenal Glands: Unremarkable. Kidneys and Ureters: No hydronephrosis. Small simple appearing cyst in the left kidney. Stomach and Bowel: Gastric pull-through. No mass identified. However, the distal esophageal wall appears more thickened. The neoesophagus is fluid-filled and patulous. There is herniated fat and the colon just above the diaphragmatic hiatus this site. Suspect a stricture at the distal esophagus, (2/14), similar. No small bowel obstruction. Diverticulosis. The appendix is not dilated. Peritoneum: No abnormal intraperitoneal fluid. No free air. Ventral Wall: No hernia. Abdominal Nodes: No retroperitoneal or mesenteric adenopathy by size criteria. Vessels: Aorta and inferior vena cava are normal in size. Moderate plaque. PELVIS: Pelvic Organs: Uterus is absent. Bladder: Question bladder wall thickening. Pelvic Nodes: No enlarged lymph nodes. Miscellaneous: No inguinal hernias are seen. Bones: No suspicious lesion. No compression fracture. Multilevel DDD. IMPRESSION: 1. Question thickening of the distal neoesophagus. The visualized portions of the neoesophagus are dilated and fluid-filled. 2. Similar narrowing near the diaphragmatic hiatus. This could be a true stricture or the gastric pylorus. 3. Diverticulosis. No diverticulitis identified. No small bowel obstruction. No free fluid. 4. Question thickening of the urinary bladder with adjacent stranding. This raises the possibility of cystitis. Dictated by: John Quinteros M.D. on 05/24/2022 at 19:30 Approved by: John Quinteros M.D. on 05/24/2022 at 19:42
[2022-05-24 18:52] LABS: RBC Urine 10-30/HPF (0-5/HPF); Squamous Epithelial Cell Urine None Seen (0-5/HPF); WBC Urine >100/HPF (0-5/HPF)
[2022-05-24 18:53] LABS: Bacteria Urine Many (>30); Culture Indicated Urine Specimen Cultured
[2022-05-24] MEDS: SODIUM CHLORIDE 0.9% 1,000 ML 1000 ML IV (19:04)
[2022-05-24] MEDS: HYDROMORPHONE 0.5 MG INJ IV (19:05)
[2022-05-24] MEDS: TRIMETH/SULFA 160/800 (DS) TABLET 1 TAB PO (21:01)
== END 2022-05-24 21:09 | disposition home or self-care (01) ==
PROVIDERS: Emergency Medicine; Emergency Provider Emergency Medicine; Family Provider Internal Medicine Gastroenterology; PCP Family Medicine
DX: N30.00 Acute cystitis without hematuria (principal); R10.30 Lower abdominal pain, unspecified
CPT/HCPCS: 36415; 74177; 80053; 81003; 81015; 83690; 83735; 85025; 87077; 87086; 87186; 93005; 93010; 96361; 96374; 99284; J1170; Q9967

== ENCOUNTER → 2022-07-02 12:03 | Outpatient (CLI) | payer OTHER, SELFPAY ==
--- NOTE | 2022-07-02 12:04 | DI.US.S_ITS ---
PROCEDURE: US ABD AORTA ANEURYSM SCREEN INDICATIONS: SMOKER; FAMILY HX AAA TECHNIQUE: Real time scanning was performed of the aorta and iliac arteries, with image documentation. COMPARISON: None. FINDINGS: Aorta: The proximal aorta is not seen. Mid-aorta measures 1.7 cm. Distal aortic diameter is 1.3 cm. Iliac arteries: Right common iliac artery measures 1.1 cm. Left common iliac artery measures 1 cm. IMPRESSION: Negative for aneurysm. Dictated by: Faustino Ferrer M.D. on 07/02/2022 at 14:36 Approved by: Faustino Ferrer M.D. on 07/02/2022 at 14:36
--- NOTE | 2022-07-02 12:04 | DI.US.S_ITS ---
PROCEDURE: US THYROID INDICATIONS: LEFT SUBMANDIBULAR LUMP TECHNIQUE: Real-time scanning was performed of the thyroid gland, with image documentation. COMPARISON: None. FINDINGS: Right: Thyroid lobe measures 4.0 x 1.6 x 1.5 cm, and is homogeneous in echotexture. Left: Thyroid lobe measures 3.7 x 1.5 x 1.6 cm, and is homogenous in echotexture. Isthmus: 1.8 mm thick. A 2 mm right and a 3 mm left colloid cyst are noted. No focal solid thyroid nodules are visualized. IMPRESSION: No discrete thyroid nodules visualized. ACR TI-RADS definitions and recommendations: TI-RADS 1 (benign): 0 points. FNA not needed. TI-RADS 2 (not suspicious): 2 points. FNA not needed. TI-RADS 3 (mildly suspicious): 3 points. * FNA if 2.5 cm or larger, follow up if 1.5 cm or larger (at 1, 3, and 5 years). TI-RADS 4 (moderately suspicious): 4-6 points. * FNA if 1.5 cm or larger, follow up if 1 cm or larger (at 1, 2, 3, and 5 years). TI-RADS 5 (highly suspicious): 7 points or more. * FNA if 1 cm or larger, follow up if 0.5 cm or larger (every year for 5 years). Dictated by: Sarahy Jerez M.D. on 07/02/2022 at 14:55 Approved by: Sarahy Jerez M.D. on 07/02/2022 at 14:56
== END ==
PROVIDERS: Family Provider Internal Medicine Gastroenterology; PCP Family Medicine; Referring Provider Family Medicine; Visit Provider Family Medicine
DX: Z13.6 Encounter for screening for cardiovascular disorders (principal); R59.9 Enlarged lymph nodes, unspecified; E04.1 Nontoxic single thyroid nodule; F17.200 Nicotine dependence, unspecified, uncomplicated; Z98.890 Other specified postprocedural states; Z87.19 Personal history of other diseases of the digestive system; Z82.49 Family history of ischemic heart disease and other diseases of the circulatory system
CPT/HCPCS: 76536; 76706

== ENCOUNTER → 2022-07-10 13:38 | Outpatient (CLI) | payer OTHER, SELFPAY ==
--- NOTE | 2022-07-31 16:39 | P.HOLT.S_ITS ---
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 & Results Date Patient Seen: 07/10/22 Requesting provider: Kristofer Deng Indication: Palpitations Duration of monitoring (days): 14 Diary information: There were 16 patient triggered events and 14 patient diary entries Patient triggered events were associated with sinus rhythm only Patient diary entries were variably associated with sinus rhythm and PVCs Data: Minimum heart rate identified was 44 beats per minute at 06:59 on 07/19/2022 Maximum sinus heart rate was 144 beats per minute at 12:06 on 07/24/2022 Maximum overall heart rate was 214 beats per minute at 08:56 on 07/22/2022 during a run of SVT Less than 1% of identified beats were ventricular or supraventricular ectopic in origin, which would classify them as rare. 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 Clinical correlation suggested
== END ==
PROVIDERS: Family Provider Internal Medicine Gastroenterology; PCP Family Medicine; Referring Provider Family Medicine; Visit Provider Family Medicine
DX: R00.2 Palpitations (principal)
CPT/HCPCS: 93246; 93248

== ENCOUNTER → 2022-07-14 11:40 | Outpatient (CLI) | payer OTHER, SELFPAY ==
[2022-07-14 18:08] LABS: Rubella Antibody IgG 33.7 IU/mL (>15)
[2022-07-15 07:10] LABS: Rubeola Measles IgG > 300.0 AU/mL (Immune >16.4); Varicella IgG Antibody 844 index (Immune >165)
[2022-07-16 04:07] LABS: Hepatitis B Surf Ab Qualitativ Non Reactive (.)
[2022-07-16 09:08] LABS: Mumps Virus IgG Antibody <9.0 AU/mL (Immune >10.9)
[2022-07-17 03:42] LABS: QuantiFERON Mitogen Value >10.00 IU/mL (.); QuantiFERON Nil Value 0.06 IU/mL (.); QuantiFERON TB Gold Plus Positive (Negative); QuantiFERON TB2 Ag Value 0.45 IU/mL (.)
== END ==
PROVIDERS: Family Provider Internal Medicine Gastroenterology; PCP Family Medicine; Referring Provider Family Medicine; Visit Provider Family Medicine
DX: R76.12 Nonspecific reaction to cell mediated immunity measurement of gamma interferon antigen response without active tuberculosis (principal); Z01.84 Encounter for antibody response examination
CPT/HCPCS: 36415; 86480; 86706; 86735; 86762; 86765; 86787

== ENCOUNTER → 2022-07-19 10:19 | Outpatient (CLI) | payer OTHER, SELFPAY ==
--- NOTE | 2022-07-19 10:21 | DI.RAD.S_ITS ---
PROCEDURE: XR CHEST 2V INDICATIONS: Pos. Quant Gold, asymptomatic TECHNIQUE: 2 views of the chest were acquired. COMPARISON: [facility], CT, THORAX WITHOUT CONTRAST, 08/17/2013, 11:54. [facility], CR, XR CHEST 2V, 03/10/2019, 13:59. FINDINGS: Surgical changes and devices: An electronic device is seen on the left. Mediastinal clips are seen. Lungs and pleura: Lungs are clear. No pleural effusions or pneumothorax. Mediastinum: The cardiac contours are within normal limits. The aorta demonstrates calcification and tortuosity. Bones and chest wall: Age-appropriate bony degenerative changes are seen. No suspicious bony abnormalities. Soft tissues appear unremarkable. IMPRESSION: Clear lungs. Postoperative and degenerative changes are seen. Dictated by: Faustino Ferrer M.D. on 07/19/2022 at 10:00 Approved by: Faustino Ferrer M.D. on 07/19/2022 at 10:03
== END ==
LOC: LAB 10:20 → RAD 10:21
PROVIDERS: Family Provider Internal Medicine Gastroenterology; PCP Family Medicine; Referring Provider Family Medicine; Visit Provider Family Medicine
DX: R76.12 Nonspecific reaction to cell mediated immunity measurement of gamma interferon antigen response without active tuberculosis (principal)
CPT/HCPCS: 71046

== ENCOUNTER 2022-12-22 16:30 | Emergency (ER) | payer OTHER, SELFPAY ==
[2022-12-22 17:04] VITALS: BP 130/70; PULSE 77; RESP 16; TEMP 37.2; O2SAT 98; BMI 30.5
--- NOTE | 2022-12-22 17:18 | DI.CT.S_ITS ---
PROCEDURE: CT SOFT TISSUE NECK W CON INDICATIONS: painful neck mass TECHNIQUE: After the administration of intravenous contrast, 3.0 mm axial sections acquired from the sella to the aortic arch. Additional oblique axial 3.0 mm sections acquired through the pharynx. 3 mm thick coronal and sagittal reformats were generated. For radiation dose reduction, the following was used: automated exposure control. COMPARISON: None. FINDINGS: Image quality: Excellent. Lymph nodes: Mildly enlarged left level 2 lymph nodes are seen measures up to 1 cm in short axis diameter anterior to left carotid artery. Mildly prominent bilateral submandibular nodes are also seen measures up to 8 mm in size. Vessels: Visualized vasculature appears patent. Neck spaces: The oropharynx, nasopharynx, and pharynx demonstrate no mucosal lesions. The vocal cords, false vocal cords, pyriform sinuses, epiglottis, vallecula, and tongue base all appear normal. Extramucosal spaces appear unremarkable. Glands: The parotid glands are within normal limits. Asymmetrically enlarged left submandibular gland is seen with heterogeneous contrast enhancement and adjacent fat stranding. Thyroid gland is within normal limits. Miscellaneous: Visualized brain and orbits appear normal. Lung apices appear clear. Superficial soft tissues appear normal. Bones: No suspicious bony lesions. Visualized sinuses and mastoids appear unremarkable. Degenerative endplate changes are noted throughout cervical spine. No acute vertebral body compression fracture. IMPRESSION: 1. Asymmetrically enlarged left submandibular gland with surrounding fat stranding and heterogeneous contrast enhancement concerning for infectious or inflammatory process involving left submandibular gland. 2. Mildly enlarged bilateral neck soft tissue lymph nodes concerning for reactive inflammatory lymph nodes. 3. No other neck soft tissue mass. No drainable abscess collection. Airway is patent. Dictated by: Jimmie Palacios M.D. on 12/22/2022 at 18:41 Approved by: Jimmie Palacios M.D. on 12/22/2022 at 18:45
[2022-12-22 18:09] LABS: Add Manual Diff / Slide Review NO; Basophils Absolute Auto 100 /uL (0-100); Basophils Percent Auto 0.6 % (0-2); Eosinophils Absolute Auto 100 /uL (0-450); Eosinophils Percent Auto 0.7 % (2-4); Hematocrit 42.6 % (36-46); Hemoglobin 14.4 g/dL (12.0-16.0); Lymphocytes Absolute Auto 1300 /uL (1100-4500); Lymphocytes Percent Auto 13.7 % (25-40); Mean Corpuscular HGB Conc 33.7 % (30-36); Mean Corpuscular Hemoglobin 30.8 PG (26-34); Mean Corpuscular Volume 91.5 fL (80-100); Monocytes Absolute Auto 600 /uL (0-900); Monocytes Percent Auto 6.5 % (3-14); Neutrophils Absolute Auto 7500 /uL (1500-7000); Neutrophils Percent Auto 78.5 % (50-75); Platelet Count 317 X10^3/uL (150-400); Red Blood Cell Count 4.66 X10^6/uL (4.0-5.2); Red Cell Distribution Width 13.5 % (11.6-14.8); White Blood Cell Count 9.6 X10^3/uL (4.5-11.0)
[2022-12-22 18:16] LABS: Prothrombin Time 11.6 SECONDS (10.1-12.7)
[2022-12-22 18:18] LABS: PTT Partial Thromboplastin Tim 29 SECONDS (26-36)
[2022-12-22 18:21] LABS: Alanine Aminotransferase 17 IU/L (<35); Albumin 4.4 g/dL (3.5-5.0); Albumin Globulin Ratio 1.3 (1.0-2.8); Alkaline Phosphatase 95 U/L (38-126); Aspartate Aminotransferase 22 IU/L (14-36); BUN Creatinine Ratio 7.7 (6-22); Bilirubin Total 0.4 mg/dL (0.2-1.3); Blood Urea Nitrogen 5 mg/dL (7-17); Carbon Dioxide 30 mmol/L (22-32); Chloride 99 mmol/L (98-107); Estimated Glomerular Filt Rate > 60 mL/min (>60); Globulin 3.5 g/dL (1.7-4.1); Glucose 112 mg/dL (80-110); HEMOLYSIS < 15 (0-50); Lactate (Lactic Acid) 1.2 mmol/L (0.7-2.1); Lipase 57 U/L (23-300); Potassium 3.5 mmol/L (3.4-5.1); Sodium 136 mmol/L (137-145); Total Protein 7.9 g/dL (6.3-8.2)
[2022-12-22 18:50] VITALS: PULSE 81; O2SAT 98
[2022-12-22 19:00] VITALS: BP 141/74; PULSE 82; O2SAT 95
[2022-12-22 19:30] VITALS: BP 142/67; PULSE 81; O2SAT 96
[2022-12-22] MEDS: MORPHINE 4 MG/ML INJ IV (19:41)
--- NOTE | 2022-12-23 18:15 | ED.GENADULT ---
HPI - General Adult <Jose Luis Soler PA-C - Last Filed: 12/23/22 19:49> General Chief complaint: Upper Respiratory Symptoms Stated complaint: LT. side throat swollen/headache Time Seen by Provider: 12/22/22 17:11 Mode of arrival: Family Vehicle History of Present Illness HPI narrative: 62-year-old female with a history of Lyman's esophagus, status post esophagectomy, asthma, suspected thyroid disease presents to the ED with a painful left-sided neck swelling and mass. Patient states that she has had this type of swelling on the left side since 2010, and that nobody has been able to figure out why. Patient states that the swelling waxes and wanes but is usually never painful. Patient states that over the last 2 days the mass has become painful. Patient has pain with swallowing, however is managing her secretions successfully and breathing comfortably. Patient denies fever, chills cough, sore throat, chest pain, shortness of breath, nausea, vomiting, lightheadedness, dizziness, syncope. Patient states she had a CT at [facility] 2 weeks ago, we have requested that study. Related Data Home Medications Medication Instructions Recorded Confirmed latanoprost 0.005 % eye drops 1 drp EYE-BOTH QPM 06/23/22 12/23/22 acarbose 25 mg tablet 25 mg PO TID 12/23/22 12/23/22 albuterol sulfate 90 mcg/actuation 2 puff inhalation Q4H PRN 12/23/22 12/23/22 aerosol inhaler Shortness Of Breath Previous Rx's Medication Instructions Recorded hydrocodone 5 mg-acetaminophen 325 1 - 2 tab PO TID PRN pain #90 tabs 11/13/22 mg tablet amoxicillin 875 mg-potassium 1 tab PO BID 10 days #20 tabs 12/22/22 clavulanate 125 mg tablet Allergies Allergy/AdvReac Type Severity Reaction Status Date / Time NSAIDS (Non-Steroidal AdvReac Severe Puking Verified 12/22/22 17:08 Anti-Inflamma Blood Review of Systems <Jose Luis Soler PA-C - Last Filed: 12/23/22 19:49> Review of Systems ROS Unobtainable: All systems reviewed & are unremarkable except as noted in HPI and below Constitutional Constitutional: Denies chills, Denies fatigue, Denies fever(s), Denies frequent falls, Denies lethargy and Denies weakness Eyes Eyes: Denies change in vision, Denies eye discharge, Denies irritation and Denies loss of vision ENT Ears, Nose, Mouth, and Throat: Denies change in voice, Denies dizziness, Reports neck pain, Reports odynophagia, Denies sore throat, Denies throat swelling and Denies tongue swelling Comments: L neck swelling, mass Cardiovascular Cardiovascular: Denies chest pain, Denies irregular heart rhythm, Denies lightheadedness, Denies palpitations, Denies dyspnea, Denies dyspnea on exertion and Denies orthopnea Respiratory Respiratory: Denies cough, Denies dyspnea, Denies dyspnea on exertion and Denies wheezing Gastrointestinal Gastrointestinal: Denies abdominal pain, Denies change in bowel habits, Denies diarrhea, Denies nausea, Reports odynophagia and Denies vomiting Genitourinary Genitourinary: Denies hematuria, Denies flank pain, Denies urinary incontinence and Denies urinary urgency Musculoskeletal Musculoskeletal: Denies back pain, Denies muscle weakness, Reports neck pain, Denies numbness and Denies tingling Integumentary/Breasts Skin/Breast: Denies pruritus, Denies erythema, Denies rash and Denies wounds Neurologic Neurologic: Denies behavioral changes, Denies confusion, Denies dizziness, Denies frequent falls, Denies loss of vision, Denies numbness, Denies tingling and Denies weakness Psychiatric Psychiatric: Denies anxiety, Denies behavioral changes, Denies confusion, Denies depression, Denies homicidal ideation and Denies suicidal ideation Endocrine Endocrine: Denies fatigue, Denies flushing and Denies palpitations Hematologic/Lymphatic Hematologic/Lymphatic: Denies easy bruising Allergic/Immunologic Allergic/Immunologic: Denies urticaria, Denies throat swelling, Denies tongue swelling and Denies wheezing Patient History <Jose Luis Soler PA-C - Last Filed: 12/23/22 19:49> Medical History Contusion of right breast Elevated parathyroid hormone Family history of abdominal aortic aneurysm (AAA) Osteoarthritis of right knee Palpitations Smoker Swollen lymph nodes Thyroid Nodule Surgical History History of back surgery History of esophageal surgery History of fundoplication Hx of total knee replacement Hx of tubal ligation Family History Father No problems noted. Mother No problems noted. Social History marital status: household members: spouse occupational status: employed Smoking Status: Current every day smoker alcohol intake: never substance use type: does not use Smoking Status: Current every day smoker tobacco type: vaping alcohol intake frequency: holidays/special occasions only Substance Use Type: does not use Exam <Jose Luis Soler PA-C - Last Filed: 12/23/22 19:49> Narrative Exam Narrative: Const General:?cooperative, healthy appearing and comfortable HENMT Head:?normal to inspection Ears:?hearing grossly normal bilaterally Nose:?external nose normal Face and sinus:?normal facial exam and sinuses nontender Mouth:?oral mucosae normal; patient managing secretions well Throat:?posterior oropharynx normal; airway patent; left-sided submandibular swelling and palpable mass that is TTP Eyes General:?appearance normal, both eyes and all related structures Neck Neck:?normal visual inspection and no lymphadenopathy noted Resp Effort & Inspection:?normal respiratory effort Auscultation:?clear to auscultation bilaterally Cardio Rate:?regular rate Rhythm:?regular rhythm Neuro General:?patient alert, patient awake and patient oriented x3 Initial Vital Signs Initial Vital Signs: Vital Signs Temperature 98.9 F 12/22/22 17:04 Pulse Rate 77 12/22/22 17:04 Respiratory Rate 16 12/22/22 17:04 Blood Pressure 130/70 12/22/22 17:04 Pulse Oximetry 98 12/22/22 17:04 Oxygen Delivery Method Room Air 12/22/22 17:04 <Ange Duggan DO - Last Filed: 12/24/22 06:39> Initial Vital Signs Initial Vital Signs: Vital Signs Temperature 98.9 F 12/22/22 17:04 Pulse Rate 77 12/22/22 17:04 Respiratory Rate 16 12/22/22 17:04 Blood Pressure 130/70 12/22/22 17:04 Pulse Oximetry 98 12/22/22 17:04 Oxygen Delivery Method Room Air 12/22/22 17:04 Course <Jose Luis Soler PA-C - Last Filed: 12/23/22 19:49> Orders Ordered: Discontinued Medications Morphine Sulfate (Morphine 4 Mg/Ml Inj) 4 mg IV NOW ONE Stop: 12/22/22 19:25 Last Admin: 12/22/22 19:41 Dose: 4 mg Documented By: DELFINO <Ange Duggan DO - Last Filed: 12/24/22 06:39> Orders Ordered: Discontinued Medications Morphine Sulfate (Morphine 4 Mg/Ml Inj) 4 mg IV NOW ONE Stop: 12/22/22 19:25 Last Admin: 12/22/22 19:41 Dose: 4 mg Documented By: DELFINO Medical Decision Making <Jose Luis Soler PA-C - Last Filed: 12/23/22 19:49> Lab Data 12/22/22 18:00 12/22/22 18:00 Labs: Lab Results 12/22/22 12/22/22 12/22/22 Range/Units 18:00 18:00 18:00 WBC 9.6 (4.5-11.0) X10^3/uL RBC 4.66 (4.0-5.2) X10^6/uL Hgb 14.4 (12.0-16.0) g/dL Hct 42.6 (36-46) % MCV 91.5 (80-100) fL MCH 30.8 (26-34) PG MCHC 33.7 (30-36) % RDW 13.5 (11.6-14.8) % Plt Count 317 (150-400) X10^3/uL Neut % (Auto) 78.5 H (50-75) % Lymph % (Auto) 13.7 L (25-40) % [place] % (Auto) 6.5 (3-14) % Eos % (Auto) 0.7 L (2-4) % Baso % (Auto) 0.6 (0-2) % Neut # (Auto) 7500 H (4063-5141) /uL Lymph # (Auto) 1300 (2872-0649) /uL [place] # (Auto) 600 (0-900) /uL Eos # (Auto) 100 (0-450) /uL Baso # (Auto) 100 (0-100) /uL PT (10.1-12.7) SECONDS INR (0.9-1.3) APTT (26-36) SECONDS Sodium 136 L (137-145) mmol/L Potassium 3.5 (3.4-5.1) mmol/L Chloride 99 (98-107) mmol/L Carbon Dioxide 30 (22-32) mmol/L BUN 5 L (7-17) mg/dL Creatinine 0.65 (0.52-1.04) mg/dL Estimated GFR > 60 (>60) mL/min BUN/Creatinine Ratio 7.7 (6-22) Glucose 112 H (80-110) mg/dL Lactate 1.2 (0.7-2.1) mmol/L Calcium 9.0 (8.4-10.2) mg/dL Total Bilirubin 0.4 (0.2-1.3) mg/dL AST 22 (14-36) IU/L ALT 17 (<35) IU/L Alkaline Phosphatase 95 (38-126) U/L Total Protein 7.9 (6.3-8.2) g/dL Albumin 4.4 (3.5-5.0) g/dL Globulin 3.5 (1.7-4.1) g/dL Albumin/Globulin Ratio 1.3 (1.0-2.8) Lipase 57 (23-300) U/L 12/22/22 Range/Units 18:00 WBC (4.5-11.0) X10^3/uL RBC (4.0-5.2) X10^6/uL Hgb (12.0-16.0) g/dL Hct (36-46) % MCV (80-100) fL MCH (26-34) PG MCHC (30-36) % RDW (11.6-14.8) % Plt Count (150-400) X10^3/uL Neut % (Auto) (50-75) % Lymph % (Auto) (25-40) % [place] % (Auto) (3-14) % Eos % (Auto) (2-4) % Baso % (Auto) (0-2) % Neut # (Auto) (1982-9120) /uL Lymph # (Auto) (3889-6576) /uL [place] # (Auto) (0-900) /uL Eos # (Auto) (0-450) /uL Baso # (Auto) (0-100) /uL PT 11.6 (10.1-12.7) SECONDS INR 1.0 (0.9-1.3) APTT 29 (26-36) SECONDS Sodium (137-145) mmol/L Potassium (3.4-5.1) mmol/L Chloride (98-107) mmol/L Carbon Dioxide (22-32) mmol/L BUN (7-17) mg/dL Creatinine (0.52-1.04) mg/dL Estimated GFR (>60) mL/min BUN/Creatinine Ratio (6-22) Glucose (80-110) mg/dL Lactate (0.7-2.1) mmol/L Calcium (8.4-10.2) mg/dL Total Bilirubin (0.2-1.3) mg/dL AST (14-36) IU/L ALT (<35) IU/L Alkaline Phosphatase (38-126) U/L Total Protein (6.3-8.2) g/dL Albumin (3.5-5.0) g/dL Globulin (1.7-4.1) g/dL Albumin/Globulin Ratio (1.0-2.8) Lipase (23-300) U/L MDM Narrative Medical decision making narrative: 62-year-old female with a history of Lyman's esophagus, status post esophagectomy, asthma, suspected thyroid disease presents to the ED with a painful left-sided neck swelling and mass. Concern for Spray 0 lithiasis versus sialoadenitis versus deep space infection versus abscess versus other. Will obtain labs, CT soft tissue of the neck. Will give morphine for pain. Labs within normal limits. CT neck shows an asymmetrically enlarged left submandibular gland with surrounding fat stranding and heterogenous contrast enhancement concerning for infectious or inflammatory process involving the left submandibular gland. Mildly enlarged bilateral neck soft tissue lymph nodes concerning for reactive inflammatory lymph nodes. No other neck soft tissue mass or drainable abscess collection. Airway is patent. Records from [facility] were obtained which did not include the CT scan, however showed a reference to the chrome plater helper about the left sub mandibular mass, but no other details. Patient appears comfortable through the ED stay is managing her secretions, there is no airway compromise. Discussed findings with patient. Prescribed Augmentin. ED return precautions were discussed. Patient agrees to return to the ED immediately if she is having trouble managing her secretions or is having trouble breathing. Medical records reviewed: Yes <Ange Duggan, DO - Last Filed: 12/24/22 06:39> Lab Data Labs: Lab Results 12/22/22 12/22/22 12/22/22 Range/Units 18:00 18:00 18:00 WBC 9.6 (4.5-11.0) X10^3/uL RBC 4.66 (4.0-5.2) X10^6/uL Hgb 14.4 (12.0-16.0) g/dL Hct 42.6 (36-46) % MCV 91.5 (80-100) fL MCH 30.8 (26-34) PG MCHC 33.7 (30-36) % RDW 13.5 (11.6-14.8) % Plt Count 317 (150-400) X10^3/uL Neut % (Auto) 78.5 H (50-75) % Lymph % (Auto) 13.7 L (25-40) % [place] % (Auto) 6.5 (3-14) % Eos % (Auto) 0.7 L (2-4) % Baso % (Auto) 0.6 (0-2) % Neut # (Auto) 7500 H (5239-0437) /uL Lymph # (Auto) 1300 (6213-1499) /uL [place] # (Auto) 600 (0-900) /uL Eos # (Auto) 100 (0-450) /uL Baso # (Auto) 100 (0-100) /uL PT (10.1-12.7) SECONDS INR (0.9-1.3) APTT (26-36) SECONDS Sodium 136 L (137-145) mmol/L Potassium 3.5 (3.4-5.1) mmol/L Chloride 99 (98-107) mmol/L Carbon Dioxide 30 (22-32) mmol/L BUN 5 L (7-17) mg/dL Creatinine 0.65 (0.52-1.04) mg/dL Estimated GFR > 60 (>60) mL/min BUN/Creatinine Ratio 7.7 (6-22) Glucose 112 H (80-110) mg/dL Lactate 1.2 (0.7-2.1) mmol/L Calcium 9.0 (8.4-10.2) mg/dL Total Bilirubin 0.4 (0.2-1.3) mg/dL AST 22 (14-36) IU/L ALT 17 (<35) IU/L Alkaline Phosphatase 95 (38-126) U/L Total Protein 7.9 (6.3-8.2) g/dL Albumin 4.4 (3.5-5.0) g/dL Globulin 3.5 (1.7-4.1) g/dL Albumin/Globulin Ratio 1.3 (1.0-2.8) Lipase 57 (23-300) U/L 12/22/22 Range/Units 18:00 WBC (4.5-11.0) X10^3/uL RBC (4.0-5.2) X10^6/uL Hgb (12.0-16.0) g/dL Hct (36-46) % MCV (80-100) fL MCH (26-34) PG MCHC (30-36) % RDW (11.6-14.8) % Plt Count (150-400) X10^3/uL Neut % (Auto) (50-75) % Lymph % (Auto) (25-40) % [place] % (Auto) (3-14) % Eos % (Auto) (2-4) % Baso % (Auto) (0-2) % Neut # (Auto) (4334-0139) /uL Lymph # (Auto) (7516-8884) /uL [place] # (Auto) (0-900) /uL Eos # (Auto) (0-450) /uL Baso # (Auto) (0-100) /uL PT 11.6 (10.1-12.7) SECONDS INR 1.0 (0.9-1.3) APTT 29 (26-36) SECONDS Sodium (137-145) mmol/L Potassium (3.4-5.1) mmol/L Chloride (98-107) mmol/L Carbon Dioxide (22-32) mmol/L BUN (7-17) mg/dL Creatinine (0.52-1.04) mg/dL Estimated GFR (>60) mL/min BUN/Creatinine Ratio (6-22) Glucose (80-110) mg/dL Lactate (0.7-2.1) mmol/L Calcium (8.4-10.2) mg/dL Total Bilirubin (0.2-1.3) mg/dL AST (14-36) IU/L ALT (<35) IU/L Alkaline Phosphatase (38-126) U/L Total Protein (6.3-8.2) g/dL Albumin (3.5-5.0) g/dL Globulin (1.7-4.1) g/dL Albumin/Globulin Ratio (1.0-2.8) Lipase (23-300) U/L Discharge Plan Departure Patient Disposition: Home Clinical Impression: Infection of submandibular gland Activity Restrictions/Additional Instructions: You were evaluated in the ED today for a left-sided painful neck mass. Your labs were normal. Your CT scan showed a infected or inflamed submandibular gland on the left side, but no abscess that can be drained. You are being prescribed antibiotics for the infection. Please complete the full course as prescribed. Please follow-up with your primary care doctor as soon as possible for further evaluation and treatment. Return to the ED if your symptoms worsen, you develop fevers, chills, inability to swallow, trouble breathing. Prescriptions: New amoxicillin-pot clavulanate 875-125 mg tablet 1 tab PO BID 10 Days Qty: 20 0RF No Action hydrocodone-acetaminophen 5-325 mg tablet 1 - 2 tab PO TID PRN (Reason: pain) Qty: 90 0RF Rx Instructions: Take 1-2 tabs by mouth up to three times daily as needed for pain. latanoprost 0.005 % drops 1 drp EYE-BOTH QPM albuterol sulfate 90 mcg/actuation HFA aerosol inhaler 2 puff INHALATION Q4H PRN (Reason: Shortness Of Breath) Patient Comments: INHALE TWO PUFFS INTO THE LUNGS EVERY 4 HOURS NEEDED FOR SHORTNESS OF BREATH OR WHEEZING. acarbose 25 mg tablet 25 mg PO TID Patient Comments: TAKE ONE TABLET BY MOUTH THREE TIMES DAILY Referrals: Kristofer Deng MD [Primary Care Provider] - Stand Alone Forms: Patient Portal/API <Ange Duggan DO - Last Filed: 12/24/22 06:39> Cosign ED Attending Melature Attestation: I was immediately available in the department for consultation. Documentation has been reviewed.
== END 2022-12-22 19:55 | disposition home or self-care (01) ==
PROVIDERS: Emergency Provider Student in an Organized Health Care Education/Training Program; Family Provider Internal Medicine Gastroenterology; PCP Family Medicine
DX: K11.20 Sialoadenitis, unspecified (principal)
CPT/HCPCS: 36415; 70491; 80053; 83605; 83690; 85025; 85610; 85730; 96374; 99284; J2270; Q9967

== ENCOUNTER 2022-12-23 01:14 | Inpatient (IN) | payer OTHER, SELFPAY ==
[2022-12-23] VITALS (92 sets, daily range): BP systolic 86–137; BP diastolic 50–91; PULSE 62–129; RESP 12–40; TEMP 36.6–37.8; O2SAT 82–100; BMI 32.1; BMI 31.3
--- NOTE | 2022-12-23 01:32 | ED.NECK ---
HPI - Neck Pain/Injury General Chief Complaint: Neck Pain/Injury Stated Complaint: Can't breath, tongue swollen Time Seen by Provider: 12/23/22 01:32 Mode of arrival: Ambulatory History of Present Illness HPI Narrative: Patient is a 62-year-old female who presents for the 2nd time tonight. She was seen evaluated really your for some neck swelling. She reports that she has neck lymph node or swelling that is always there remains the same size however today became very tender. She had a CT done earlier today which showed enlarged left submandibular gland. She was discharged at 7:53 p.m. she returned at 1:22 a.m. with significantly worsening swelling of her neck hoarse voice inability to swallow and feels like she can not breathe. She is still is able to talk but voices obviously muffled. She says she did not take anything she is not really had fever. But her neck is getting more tender more swollen and having significant symptoms. Related Data Home Medications Medication Instructions Recorded Confirmed latanoprost 0.005 % eye drops drp EYE-BOTH QPM 06/23/22 06/23/22 Previous Rx's Medication Instructions Recorded albuterol sulfate 90 mcg/actuation 2 puff inhalation Q4HP PRN 11/13/22 aerosol inhaler (Proventil HFA) shortness of breath or wheezing ##8.5 hydrocodone 5 mg-acetaminophen 325 1 - 2 tab PO TID PRN pain #90 tabs 11/13/22 mg tablet amoxicillin 875 mg-potassium 1 tab PO BID 10 days #20 tabs 12/22/22 clavulanate 125 mg tablet Allergies Allergy/AdvReac Type Severity Reaction Status Date / Time NSAIDS (Non-Steroidal AdvReac Severe Puking Verified 12/22/22 17:08 Anti-Inflamma Blood Review of Systems Review of Systems ROS Unobtainable: All systems reviewed & are unremarkable except as noted in HPI and below Patient History Medical History Contusion of right breast Elevated parathyroid hormone Family history of abdominal aortic aneurysm (AAA) Osteoarthritis of right knee Palpitations Smoker Swollen lymph nodes Thyroid Nodule Surgical History History of back surgery History of esophageal surgery History of fundoplication Hx of total knee replacement Hx of tubal ligation Family History Father No problems noted. Mother No problems noted. Social History marital status: household members: spouse occupational status: employed Smoking Status: Current every day smoker alcohol intake: never substance use type: does not use Smoking Status: Current every day smoker tobacco type: vaping alcohol intake frequency: holidays/special occasions only Substance Use Type: does not use Exam Initial Vital Signs Initial Vital Signs: Vital Signs Temperature 100.0 F H 12/23/22 01:22 Pulse Rate 96 H 12/23/22 01:22 Respiratory Rate 24 12/23/22 01:22 Blood Pressure 126/58 L 12/23/22 01:22 Pulse Oximetry 97 12/23/22 01:22 Oxygen Delivery Method Room Air 12/23/22 01:22 GENERAL: 62-year-old female hoarse voice spitting up secretions HEENT: Head atraumatic,EOMI, pupils reactive, bilateral enlarged submandibular glands no erythema tender to touch. Hoarse voice no stridor. Not managing all secretions CARDIOVASCULAR: Regular rate and rhythm without murmurs, rubs or gallops. RESPIRATORY: Breath sounds equal bilaterally, no wheezes rales or rhonchi. ABDOMEN: Soft, nontender. Normoactive bowel sounds all 4 quadrants. No guarding or rebound. EXTREMITIES: Normal range of motion, no clubbing or edema. Neurovascularly intact NEUROLOGICAL: Alert and oriented x4.Normal gait and speech. SKIN: Warm, dry, no laceration, no petechiae, no rashes or lesions. Procedures Intubation sedative: Etomidate Mg Given: 15 paralytic: Succinylcholine Mg Given: 115 ET Tube Size: 7 Tube Secured Location: lips Tube Placement Confirmation: Visualized tube passing through cords, Equal breath sounds bilaterally, No breath sounds over epigastrium, Confirmation by capnometry and Chest Xray Patient Tolerated Procedure: Well and No complications Intubation Complications: none Course Orders Ordered: ED Orders 12/23/22 01:55 Chest [XR chest 1V] Stat 12/23/22 02:14 CT soft tissue neck w con Stat 12/23/22 02:25 CBC Auto Diff [Complete Blood Count AUTO DIFF] Stat CMP [Comprehensive Metabolic Panel] Stat CRP [C-Reactive Protein Quant] Stat ESR [Erythrocyte Sedimentation Rate] Stat Lactate (Lactic Acid) Stat Procalcitonin Stat 12/23/22 03:00 Blood Culture Stat Enoxaparin Sodium (Enoxaparin 40 Mg/0.4 Ml Syringe) 40 mg SUBCUT DAILY NINA Propofol (Propofol) 1,000 mg in 100 mls @ 5.85 mls/hr IV TITRATE NINA; Protocol Last Titration: 12/23/22 04:15 Dose: 10 mcg/kg/min, 11.7 mls/hr Documented By: Titration: 12/23/22 02:26 Dose: 15 mcg/kg/min, 17.55 mls/hr Documented By: Titration: 12/23/22 02:15 Dose: 20 mcg/kg/min, 23.4 mls/hr Documented By: Titration: 12/23/22 02:10 Dose: 15 mcg/kg/min, 17.55 mls/hr Documented By: Titration: 12/23/22 02:05 Dose: 10 mcg/kg/min, 11.7 mls/hr Documented By: Admin: 12/23/22 01:58 Dose: 5 mcg/kg/min, 5.85 mls/hr Documented By: APOORVA Fentanyl 1,000 mcg/ Dextrose 250 mls @ 16.273 mls/hr IV TITRATE NINA; Protocol Dextrose/Sodium Chloride (Dextrose 5%-0.9% Ns) 1,000 mls @ 80 mls/hr IV CONT NINA Methylprednisolone (Methylprednisolone 125 Mg/2 Ml Vial) 60 mg IV DAILY [facility] Naloxone HCl (Naloxone 0.4 Mg/Ml Vial) 0.2 mg IV Q2MIN PRN PRN Reason: Opiate Reversal Ondansetron HCl (Ondansetron 4 Mg/2 Ml Inj) 4 mg IV Q8HR PRN PRN Reason: Nausea And Vomiting Discontinued Medications Dexamethasone (Dexamethasone 10 Mg/Ml Vial) 10 mg IV NOW ONE Stop: 12/23/22 01:35 Last Admin: 12/23/22 02:20 Dose: 10 mg Documented By: APOORVA Etomidate (Etomidate 2 Mg/Ml 10 Ml Vial) 15 mg IV NOW ONE Stop: 12/23/22 01:42 Last Admin: 12/23/22 01:48 Dose: 15 mg Documented By: APOORVA Hydromorphone HCl (Hydromorphone 1 Mg Inj) 1 mg IV NOW ONE Stop: 12/23/22 02:25 Last Admin: 12/23/22 02:27 Dose: 1 mg Documented By: APOORVA Sodium Chloride (Normal Saline 0.9%) 1,000 mls @ 1,000 mls/hr IV BOLUS ONE Stop: 12/23/22 02:40 Last Infusion: 12/23/22 03:51 Dose: 0 mls/hr Documented By: Admin: 12/23/22 01:57 Dose: 1,000 mls/hr Documented By: APOORVA Ampicillin Sodium/Sulbactam (Sodium 3 gm/ Sodium Chloride) 100 mls @ 200 mls/hr IV NOW ONE Stop: 12/23/22 02:14 Last Infusion: 12/23/22 03:51 Dose: 0 mls/hr Documented By: Admin: 12/23/22 03:07 Dose: 200 mls/hr Documented By: APOORVA Lorazepam (Lorazepam 2 Mg/Ml Inj) 2 mg IV NOW ONE Stop: 12/23/22 02:03 Last Admin: 12/23/22 02:05 Dose: 2 mg Documented By: APOORVA Propofol (Propofol 200 Mg/20 Ml Vial) 100 mg IV NOW ONE Stop: 12/23/22 03:39 Last Admin: 12/23/22 02:00 Dose: 100 mg Documented By: APOORVA Succinylcholine Chloride (Succinylcholine 200 Mg/10 Ml Vial) 115 mg 0.6 mg/kg (115 mg) IV NOW ONE Stop: 12/23/22 01:43 Last Admin: 12/23/22 01:50 Dose: 115 mg Documented By: APOORVA Vital Signs Vital signs: Vital Signs - 8 hr 12/23/22 01:22 12/23/22 01:40 12/23/22 01:45 Temperature 100.0 F H Pulse Rate 96 H 89 85 Respiratory Rate 24 29 H 24 Blood Pressure 126/58 L 134/71 Pulse Oximetry 97 97 98 Oxygen Delivery Method Room Air 12/23/22 01:50 12/23/22 01:55 12/23/22 02:00 Temperature Pulse Rate 86 126 H 129 H Respiratory Rate 20 21 40 H Blood Pressure 137/91 H Pulse Oximetry 89 L 99 83 L Oxygen Delivery Method 12/23/22 02:05 12/23/22 02:10 12/23/22 02:15 Temperature Pulse Rate 97 H 94 H 91 H Respiratory Rate 18 27 H 24 Blood Pressure 134/66 Pulse Oximetry 98 94 100 Oxygen Delivery Method 12/23/22 02:21 12/23/22 02:24 12/23/22 02:24 Temperature Pulse Rate 88 97 H Respiratory Rate 23 18 Blood Pressure 136/64 Pulse Oximetry 100 100 Oxygen Delivery Method 12/23/22 02:25 12/23/22 02:25 12/23/22 02:30 Temperature Pulse Rate 92 H Respiratory Rate 18 Blood Pressure 127/59 L 105/57 L Pulse Oximetry 100 Oxygen Delivery Method 12/23/22 02:30 12/23/22 02:54 12/23/22 02:54 Temperature Pulse Rate 87 79 Respiratory Rate 18 18 Blood Pressure 103/51 L Pulse Oximetry 99 98 Oxygen Delivery Method 12/23/22 02:55 12/23/22 02:55 12/23/22 03:00 Temperature Pulse Rate 79 79 Respiratory Rate 18 18 Blood Pressure 117/57 L Pulse Oximetry 82 L 98 Oxygen Delivery Method 12/23/22 03:01 12/23/22 03:01 12/23/22 03:05 Temperature Pulse Rate 79 Respiratory Rate 18 Blood Pressure 102/53 L 94/55 L Pulse Oximetry 98 Oxygen Delivery Method 12/23/22 03:05 12/23/22 03:10 12/23/22 03:10 Temperature Pulse Rate 78 76 Respiratory Rate 18 18 Blood Pressure 90/54 L Pulse Oximetry 97 96 Oxygen Delivery Method 12/23/22 03:15 12/23/22 03:15 12/23/22 03:20 Temperature Pulse Rate 75 Respiratory Rate 18 Blood Pressure 92/52 L 94/51 L Pulse Oximetry 96 Oxygen Delivery Method 12/23/22 03:20 12/23/22 03:25 12/23/22 03:25 Temperature Pulse Rate 74 72 Respiratory Rate 18 18 Blood Pressure 97/51 L Pulse Oximetry 96 96 Oxygen Delivery Method 12/23/22 03:30 12/23/22 03:30 12/23/22 03:35 Temperature Pulse Rate 69 Respiratory Rate 18 Blood Pressure 90/53 L 108/55 L Pulse Oximetry 97 Oxygen Delivery Method 12/23/22 03:35 12/23/22 03:40 12/23/22 03:40 Temperature Pulse Rate 70 71 Respiratory Rate 18 18 Blood Pressure 103/58 L Pulse Oximetry 99 99 Oxygen Delivery Method 12/23/22 03:45 12/23/22 03:45 Temperature Pulse Rate 73 Respiratory Rate 18 Blood Pressure 107/57 L Pulse Oximetry 99 Oxygen Delivery Method MDM - Neck Pain/Injury Lab Data 12/23/22 02:25 12/23/22 02:25 Labs: Lab Results 12/23/22 12/23/22 12/23/22 Range/Units 02:25 02:25 02:25 WBC 7.8 (4.5-11.0) X10^3/uL RBC 4.38 (4.0-5.2) X10^6/uL Hgb 13.5 (12.0-16.0) g/dL Hct 40.3 (36-46) % MCV 91.9 (80-100) fL MCH 30.8 (26-34) PG MCHC 33.6 (30-36) % RDW 13.4 (11.6-14.8) % Plt Count 292 (150-400) X10^3/uL Neut % (Auto) 74.2 (50-75) % Lymph % (Auto) 15.2 L (25-40) % [place] % (Auto) 9.9 (3-14) % Eos % (Auto) 0.4 L (2-4) % Baso % (Auto) 0.3 (0-2) % Neut # (Auto) 5800 (8217-5570) /uL Lymph # (Auto) 1200 (5425-5611) /uL [place] # (Auto) 800 (0-900) /uL Eos # (Auto) 0 (0-450) /uL Baso # (Auto) 0 (0-100) /uL ESR (0-20) MM/HR Sodium 134 L (137-145) mmol/L Potassium 4.1 (3.4-5.1) mmol/L Chloride 98 (98-107) mmol/L Carbon Dioxide 30 (22-32) mmol/L BUN 4 L (7-17) mg/dL Creatinine 0.67 (0.52-1.04) mg/dL Estimated GFR > 60 (>60) mL/min BUN/Creatinine Ratio 6.0 (6-22) Glucose 136 H (80-110) mg/dL Lactate 2.1 (0.7-2.1) mmol/L Calcium 8.4 (8.4-10.2) mg/dL Total Bilirubin 0.6 (0.2-1.3) mg/dL AST 20 (14-36) IU/L ALT 17 (<35) IU/L Alkaline Phosphatase 78 (38-126) U/L C-Reactive Protein (<1.0) mg/dL Total Protein 7.1 (6.3-8.2) g/dL Albumin 4.1 (3.5-5.0) g/dL Globulin 3.0 (1.7-4.1) g/dL Albumin/Globulin Ratio 1.4 (1.0-2.8) Procalcitonin (<0.5) ng/mL 12/23/22 12/23/22 Range/Units 02:25 02:25 WBC (4.5-11.0) X10^3/uL RBC (4.0-5.2) X10^6/uL Hgb (12.0-16.0) g/dL Hct (36-46) % MCV (80-100) fL MCH (26-34) PG MCHC (30-36) % RDW (11.6-14.8) % Plt Count (150-400) X10^3/uL Neut % (Auto) (50-75) % Lymph % (Auto) (25-40) % [place] % (Auto) (3-14) % Eos % (Auto) (2-4) % Baso % (Auto) (0-2) % Neut # (Auto) (1389-4689) /uL Lymph # (Auto) (2266-0979) /uL [place] # (Auto) (0-900) /uL Eos # (Auto) (0-450) /uL Baso # (Auto) (0-100) /uL ESR 30 H (0-20) MM/HR Sodium (137-145) mmol/L Potassium (3.4-5.1) mmol/L Chloride (98-107) mmol/L Carbon Dioxide (22-32) mmol/L BUN (7-17) mg/dL Creatinine (0.52-1.04) mg/dL Estimated GFR (>60) mL/min BUN/Creatinine Ratio (6-22) Glucose (80-110) mg/dL Lactate (0.7-2.1) mmol/L Calcium (8.4-10.2) mg/dL Total Bilirubin (0.2-1.3) mg/dL AST (14-36) IU/L ALT (<35) IU/L Alkaline Phosphatase (38-126) U/L C-Reactive Protein 2.6 H (<1.0) mg/dL Total Protein (6.3-8.2) g/dL Albumin (3.5-5.0) g/dL Globulin (1.7-4.1) g/dL Albumin/Globulin Ratio (1.0-2.8) Procalcitonin 0.05 (<0.5) ng/mL Imaging Data Chest x-ray: Radiologist's Impression: Clear lungs mild cardiomegaly without heart failure CT soft tissue neck: Radiologist's Impression: ET tube and OG tube visualized appear in good position. Esophageal wall thickening is present. Enlarged left submandibular gland with an obstructing calculus left Jostin's duct distally measuring 5 mm. There are associated inflammatory changes present. Supraglottic edema cervical lymphadenopathy on the left MDM Narrative Medical decision making narrative: Patient 62-year-old female presents for the 2nd time with significant increased neck swelling and signs of upper airway edema. Patient was brought back and intubated for airway protection. He really has not had any fever or chills. The swelling has come on suddenly. This is not secondary to anaphylaxis. This is unlikely a deep neck soft tissue cellulitis. CT confirms supraglottic edema which would explain her voice. Patient is given dexamethasone and Unasyn. She has no leukocytosis electrolytes are within normal limits. Immediately after intubation patient was vomiting. She required suctioning. Yao CAZARES accepts patient to the ICU. Discharge Plan Departure Patient Disposition: Admitted As Inpatient Clinical Impression: Supraglottic edema, Submandibular duct obstruction Admit Date/Time: 12/23/22 03:49 Admit Provider: Meena Samayoa
[2022-12-23] MEDS: ETOMIDATE 2 MG/ML 10 ML VIAL 15 MG IV (01:48)
[2022-12-23] MEDS: SUCCINYLCHOLINE 200 MG/10 ML VIAL 115 MG IV (01:50)
--- NOTE | 2022-12-23 01:55 | PC.NURSE ---
pt to RM aao x 3 speech is muffled, Dr Duggan in to explain to pt about protecting her airway, pt verbally consents to being intubated if she is sedated. RT in room, pt intubated with a 7.0 ET tube and secured at 23 @ the lip. placed on ventilator with settings of VC-AC VT 500 FiO2 50% with a rate of 18 and a PEEP of 5
--- NOTE | 2022-12-23 01:55 | DI.RAD.S_ITS ---
PROCEDURE: XR CHEST 1V INDICATIONS: post intubation TECHNIQUE: One view of the chest was acquired. COMPARISON: [facility], CR, XR CHEST 2V, 07/19/2022, 10:42. FINDINGS: Surgical changes and devices: ETT tip is approximately 2.6 cm above the elena. Surgical clips are seen in bilateral hilar region. Lungs and pleura: Lungs are clear. No pleural effusions or pneumothorax. Mediastinum: Mediastinal contours appear normal. Heart size is enlarged. Bones and chest wall: No suspicious bony lesions. Overlying soft tissues appear unremarkable. IMPRESSION: ETT tip is in satisfactory position. No focal infiltrate, pleural effusion or pneumothorax. Dictated by: Jimmie Palacios M.D. on 12/23/2022 at 8:35 Approved by: Jimmie Palacios M.D. on 12/23/2022 at 8:36
[2022-12-23] MEDS: SODIUM CHLORIDE 0.9% 1,000 ML 1000 ML IV (01:57)
[2022-12-23] MEDS: propofoL 1,000 MG/100 ML VIAL 5.85 MG IV ×2 (01:58→14:07)
[2022-12-23] MEDS: propofoL 200 MG/20 ML VIAL 100 MG IV (02:00)
[2022-12-23] MEDS: LORazepam 2 MG/ML INJ IV (02:05)
--- NOTE | 2022-12-23 02:05 | PC.NURSE ---
18fr OG tube inserted without difficulty and placed ot intermittent suction
--- NOTE | 2022-12-23 02:14 | DI.CT.S_ITS ---
PROCEDURE: CT SOFT TISSUE NECK W CON INDICATIONS: increased swelling TECHNIQUE: After the administration of intravenous contrast, 3.0 mm axial sections acquired from the sella to the aortic arch. Additional oblique axial 3.0 mm sections acquired through the pharynx. 3 mm thick coronal and sagittal reformats were generated. For radiation dose reduction, the following was used: automated exposure control. COMPARISON: [facility], CR, XR CHEST 2V, 07/19/2022, 10:42. [facility], CT, CT SOFT TISSUE NECK W CON, 12/22/2022, 18:28. FINDINGS: When compared with the prior study there is no significant change in size of the left submandibular gland. Significant edematous enlargement of the oral tongue and root of the tongue are noted along with extensive due to edema in the floor of mouth and right submandibular space. Associated extensive regional lymphadenopathy further contributes to overall moderate-severe mass effect and near complete airway compromise. The space surrounding the tremayne-pharyngeal and endotracheal tubes is essentially entirely effaced in the suprahyoid neck and oropharynx. Enlarged and hyperenhancing appearance of the left pharyngeal tonsil with associated tonsilloliths. There is no definite rim enhancing or low-density collection identified to represent abscess. No suspicious bone lesion. No significant vascular abnormality. Suture/staple line at the junction of the cervical and thoracic portions of the esophagus suggesting possible esophagectomy and colonic interposition changes. Patulous appearance of the thoracic esophagus is further consistent with this medical history, although this is not definitive. Nonspecific possible masslike thickening (versus intraluminal contents) at the junction of the cervical and thoracic esophagus just inferior to the staple line extending to the level of the elena. IMPRESSION: Severe airway compromise secondary to right submandibular and floor of mouth space edema, presumably infectious in nature. Extent and degree of the edema and resultant mass effect are significantly increased from 12/22/2022 exam. Postsurgical changes of the junction of the thoracic and cervical portions of the esophagus which may represent esophagitis to me and and colonic interposition, although this is not definitive. Circumferential masslike thickening of the upper thoracic esophageal segment (versus colonic pull-through segment) is similar to the previous exam and remains suspicious for possible malignancy. Endoscopic correlation recommended. Correlate with surgical history and consider endoscopic correlation. Dictated by: Trenton Baker M.D. on 12/23/2022 at 10:36 Approved by: Trenton Baker M.D. on 12/23/2022 at 10:45
[2022-12-23] MEDS: DEXAMETHASONE 10 MG/ML VIAL IV ×2 (02:20→08:26)
[2022-12-23] MEDS: HYDROMORPHONE 1 MG INJ IV (02:27)
[2022-12-23 02:54] LABS: Add Manual Diff / Slide Review NO; Basophils Absolute Auto 0 /uL (0-100); Basophils Percent Auto 0.3 % (0-2); Eosinophils Absolute Auto 0 /uL (0-450); Eosinophils Percent Auto 0.4 % (2-4); Hematocrit 40.3 % (36-46); Hemoglobin 13.5 g/dL (12.0-16.0); Lymphocytes Absolute Auto 1200 /uL (1100-4500); Lymphocytes Percent Auto 15.2 % (25-40); Mean Corpuscular HGB Conc 33.6 % (30-36); Mean Corpuscular Hemoglobin 30.8 PG (26-34); Mean Corpuscular Volume 91.9 fL (80-100); Monocytes Absolute Auto 800 /uL (0-900); Monocytes Percent Auto 9.9 % (3-14); Neutrophils Absolute Auto 5800 /uL (1500-7000); Neutrophils Percent Auto 74.2 % (50-75); Platelet Count 292 X10^3/uL (150-400); Red Blood Cell Count 4.38 X10^6/uL (4.0-5.2); Red Cell Distribution Width 13.4 % (11.6-14.8); White Blood Cell Count 7.8 X10^3/uL (4.5-11.0)
[2022-12-23 03:04] LABS: Lactate (Lactic Acid) 2.1 mmol/L (0.7-2.1)
[2022-12-23 03:06] LABS: Alanine Aminotransferase 17 IU/L (<35); Albumin 4.1 g/dL (3.5-5.0); Albumin Globulin Ratio 1.4 (1.0-2.8); Alkaline Phosphatase 78 U/L (38-126); Aspartate Aminotransferase 20 IU/L (14-36); Bilirubin Total 0.6 mg/dL (0.2-1.3); Blood Urea Nitrogen 4 mg/dL (7-17); C-Reactive Protein Quant 2.6 mg/dL (<1.0); Calcium 8.4 mg/dL (8.4-10.2); Carbon Dioxide 30 mmol/L (22-32); Chloride 98 mmol/L (98-107); Estimated Glomerular Filt Rate > 60 mL/min (>60); Glucose 136 mg/dL (80-110); HEMOLYSIS 18 (0-50); Potassium 4.1 mmol/L (3.4-5.1); Sodium 134 mmol/L (137-145); Total Protein 7.1 g/dL (6.3-8.2)
[2022-12-23] MEDS: AMPICILLIN/SULBACTAM 3 GM 3 GM in SODIUM CHLORIDE 0.9% 100 ML IV (03:07)
[2022-12-23 03:20] LABS: Procalcitonin 0.05 ng/mL (<0.5)
[2022-12-23 03:29] LABS: Erythrocyte Sedimentation Rate 30 MM/HR (0-20)
--- NOTE | 2022-12-23 04:37 | P.HP_ITS ---
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 Who presented to the ED earlier today complaining of swelling in her throat and neck area, she was found to be stable an evaluation unremarkable was sent home patient then returned this evening to the ED complaining of worsening difficulty breathing, voice was muffled had predominant and worsening swelling of the airway and mouth. Dr. Duggan ED was unable to visualize uvula or epiglottis, patient subsequently required immediate intubation. Unable to obtain HPI, ROS, or family medical hx due to intubation. At the time of admit patient is febrile with a temperature of 100? although likely secondary to intubation, BP 134/66, HR 91, RR 24 with an O2 saturation of 100% on ventilator. Labs are predominantly unremarkable, BUN 4, ESR 30, CRP 2.6, lactate 2.1, procalcitonin is within normal limits these are also post intubation. Chest x-ray and soft tissue of neck imaging results are pending. Patient admitted for angioedema of unknown etiology, to the ICU secondary to intubation. Patient History Medical History Contusion of right breast Elevated parathyroid hormone Family history of abdominal aortic aneurysm (AAA) Osteoarthritis of right knee Palpitations Smoker Swollen lymph nodes Thyroid Nodule Surgical History History of back surgery History of esophageal surgery History of fundoplication Hx of total knee replacement Hx of tubal ligation Family & Social History Family History Father No problems noted. Mother No problems noted. Social History: household members spouse Safety & Behavioral: Feels Safe in Current Yes Environment Been Physically Hurt or No Threatened By a Person Tobacco & Substance use: Smoking Status Current every day smoker alcohol intake never alcohol intake frequency holiday/special occasion Substance Use Type does not use Meds Home Medications and Allergies Home Medications Medication Instructions Recorded Confirmed Type latanoprost 0.005 % eye drops drp EYE-BOTH QPM 06/23/22 06/23/22 History albuterol sulfate 90 mcg/actuation 2 puff inhalation Q4HP PRN 11/13/22 Rx aerosol inhaler (Proventil HFA) shortness of breath or wheezing ##8.5 hydrocodone 5 mg-acetaminophen 325 1 - 2 tab PO TID PRN pain #90 tabs 11/13/22 Rx mg tablet amoxicillin 875 mg-potassium 1 tab PO BID 10 days #20 tabs 12/22/22 Rx clavulanate 125 mg tablet Allergies Allergy/AdvReac Type Severity Reaction Status Date / Time NSAIDS (Non-Steroidal AdvReac Severe Puking Verified 12/22/22 17:08 Anti-Inflamma Blood Review of Systems Review of Systems Narrative: Unable to obtain ROS due to intubation Exam Vital Signs (past 8 hours): - 12/23/22 01:22 12/23/22 01:40 12/23/22 01:45 Temperature 100.0 F H Pulse Rate 96 H 89 85 Respiratory Rate 24 29 H 24 Blood Pressure 126/58 L 134/71 Pulse Oximetry 97 97 98 Oxygen Delivery Method Room Air 12/23/22 01:50 12/23/22 01:55 12/23/22 02:00 Temperature Pulse Rate 86 126 H 129 H Respiratory Rate 20 21 40 H Blood Pressure 137/91 H Pulse Oximetry 89 L 99 83 L Oxygen Delivery Method 12/23/22 02:05 12/23/22 02:10 12/23/22 02:15 Temperature Pulse Rate 97 H 94 H 91 H Respiratory Rate 18 27 H 24 Blood Pressure 134/66 Pulse Oximetry 98 94 100 Oxygen Delivery Method 12/23/22 02:21 12/23/22 02:24 12/23/22 02:24 Temperature Pulse Rate 88 97 H Respiratory Rate 23 18 Blood Pressure 136/64 Pulse Oximetry 100 100 Oxygen Delivery Method 12/23/22 02:25 12/23/22 02:25 12/23/22 02:30 Temperature Pulse Rate 92 H Respiratory Rate 18 Blood Pressure 127/59 L 105/57 L Pulse Oximetry 100 Oxygen Delivery Method 12/23/22 02:30 12/23/22 02:54 12/23/22 02:54 Temperature Pulse Rate 87 79 Respiratory Rate 18 18 Blood Pressure 103/51 L Pulse Oximetry 99 98 Oxygen Delivery Method 12/23/22 02:55 12/23/22 02:55 12/23/22 03:00 Temperature Pulse Rate 79 79 Respiratory Rate 18 18 Blood Pressure 117/57 L Pulse Oximetry 82 L 98 Oxygen Delivery Method 12/23/22 03:01 12/23/22 03:01 12/23/22 03:05 Temperature Pulse Rate 79 Respiratory Rate 18 Blood Pressure 102/53 L 94/55 L Pulse Oximetry 98 Oxygen Delivery Method 12/23/22 03:05 12/23/22 03:10 12/23/22 03:10 Temperature Pulse Rate 78 76 Respiratory Rate 18 18 Blood Pressure 90/54 L Pulse Oximetry 97 96 Oxygen Delivery Method 12/23/22 03:15 12/23/22 03:15 12/23/22 03:20 Temperature Pulse Rate 75 Respiratory Rate 18 Blood Pressure 92/52 L 94/51 L Pulse Oximetry 96 Oxygen Delivery Method 12/23/22 03:20 12/23/22 03:25 12/23/22 03:25 Temperature Pulse Rate 74 72 Respiratory Rate 18 18 Blood Pressure 97/51 L Pulse Oximetry 96 96 Oxygen Delivery Method 12/23/22 03:30 12/23/22 03:30 12/23/22 03:35 Temperature Pulse Rate 69 Respiratory Rate 18 Blood Pressure 90/53 L 108/55 L Pulse Oximetry 97 Oxygen Delivery Method 12/23/22 03:35 12/23/22 03:40 12/23/22 03:40 Temperature Pulse Rate 70 71 Respiratory Rate 18 18 Blood Pressure 103/58 L Pulse Oximetry 99 99 Oxygen Delivery Method 12/23/22 03:45 12/23/22 03:45 Temperature Pulse Rate 73 Respiratory Rate 18 Blood Pressure 107/57 L Pulse Oximetry 99 Oxygen Delivery Method Oxygen Delivery Method Room Air Narrative Exam Narrative: General: Patient is a well-developed, well-nourished female intubated, in no distress at this time. HEENT: Normocephalic, atraumatic, extraocular muscles intact, intabated Negative for JVD Chest: Normal AP diameter and contour without kyphoscoliosis, no nasal flaring, retractions, or tachypneic labored Lungs: Auscultation of all lung odonnell are clear without adventitious sounds, wheezes, rhonchi, or rales. Cardio: S1 & S2 with regular rate and rhythm without murmur, rubs, or gallops, no carotid bruit, no cardiac pulsations present. Abdomen: Soft nontender, negative for organomegaly, or masses. Bowel sounds are present in all 4 quadrants without guarding or rebound, no CVA tenderness. Musculoskeletal: Muscle strength and tone are equal within normal limits, no deformity, crepitus, effusions, cyanosis, clubbing or edema present. Full range of motion intact radial and pedal pulses are normal. Skin: Warm dry and intact without rashes, ulcerations or petechiae. Neuro: Alert, moves all extremities, sensation to touch intact, no gross deficits noted of cranial nerves. Psych: Patient has a well-kept appearance. Objective Labs 12/23/22 02:25 12/23/22 02:25 Labs: Laboratory Results - last 24 hr 12/23/22 12/23/22 12/23/22 02:25 02:25 02:25 WBC 7.8 RBC 4.38 Hgb 13.5 Hct 40.3 MCV 91.9 MCH 30.8 MCHC 33.6 RDW 13.4 Plt Count 292 Neut % (Auto) 74.2 Lymph % (Auto) 15.2 L [place] % (Auto) 9.9 Eos % (Auto) 0.4 L Baso % (Auto) 0.3 Neut # (Auto) 5800 Lymph # (Auto) 1200 [place] # (Auto) 800 Eos # (Auto) 0 Baso # (Auto) 0 ESR Sodium 134 L Potassium 4.1 Chloride 98 Carbon Dioxide 30 BUN 4 L Creatinine 0.67 Estimated GFR > 60 BUN/Creatinine Ratio 6.0 Glucose 136 H Lactate 2.1 Calcium 8.4 Total Bilirubin 0.6 AST 20 ALT 17 Alkaline Phosphatase 78 C-Reactive Protein Total Protein 7.1 Albumin 4.1 Globulin 3.0 Albumin/Globulin Ratio 1.4 Procalcitonin 12/23/22 12/23/22 02:25 02:25 WBC RBC Hgb Hct MCV MCH MCHC RDW Plt Count Neut % (Auto) Lymph % (Auto) [place] % (Auto) Eos % (Auto) Baso % (Auto) Neut # (Auto) Lymph # (Auto) [place] # (Auto) Eos # (Auto) Baso # (Auto) ESR 30 H Sodium Potassium Chloride Carbon Dioxide BUN Creatinine Estimated GFR BUN/Creatinine Ratio Glucose Lactate Calcium Total Bilirubin AST ALT Alkaline Phosphatase C-Reactive Protein 2.6 H Total Protein Albumin Globulin Albumin/Globulin Ratio Procalcitonin 0.05 Assessment & Plan Assessment & Plan narrative: Dior Godinez is a 62-year-old female with a history of 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 Who presented to the ED earlier today complaining of swelling in her throat and neck area, she was found to be stable an evaluation unremarkable was sent home patient then returned this evening to the ED complaining of worsening difficulty breathing, voice was muffled had predominant and worsening swelling of the airway and mouth. Dr. Duggan ED was unable to visualize uvula or epiglottis, patient subsequently required immediate intubation. 1. Angioedema, acute, Coos's duct calculus, with super glottic edema, acute present on admission -patient was intubated in ED -admitted to the ICU to be managed by tele 911 dispatcher -will trend laboratory findings and inflammatory markers -I personally reviewed imaging: CT neck: Enlarged left submandibular gland with an obstructing calculus left Coos's duct distally measuring 5 mm, with a ssociated inflammatory changes present. Supraglottic edema, cervical lymphadenopathy on left -Solu-Medrol 60 mg IV q.day -CXR: Lungs are clear mild cardiomegaly without heart failure -D5 NS at 60 cc Q hour, glucose checks q.6 hours while intubated -continue propofol and fentanyl -COVID, influenza a/B/RSV panel ordered 2. History of esophageal stricture from Lyman's esophagus s/p esophagealect noel, chronic, present on admission 3. Lymphadenopathy, chronic, left anterior neck 4. obesity mild , acute on chronic, present on admission BMI 32.1 -dietary consult ordered regarding nutritional education and information for dietary, lifestyle, exercise, and weight changes. -the patient is at much higher risk for medical and surgical complications due to obesity as it relates to chronic illnesses:, and acute illness. The patient's obesity increases the difficulty and complexity of medical and/or surgical interventions, management and increases the chances of poor outcome such as morbidity and mortality as well as impaired wound healing. Code status:Full Surrogate decision maker: Spouse Rory DVT/VTE prophylaxis: Lovenox and SCD Disposition: Patient admitted to the ICU due to intubation, expected length of stay greater than 3 midnights. I have utilized all available immediate resources to obtain, update, or review the patient's current medications. Exception-the patient is not eligible for medication reconciliation; the patient is in an emergent medical situation were delaying treatment would jeopardize the patient's health. I confirmed that the patient's advanced care plan is present, Code status is documented and/or surrogate decision maker is listed in the patient's medical record. I have personally reviewed patient's chart notes from PCP, specialists, diagnostic imaging, and laboratory results. Time Spent With Patient Critical Care time: I spent a total of [] minutes of critical care time on this patient's care today; this time is exclusive of procedural time.
[2022-12-23 04:50] LABS: Reflexed Lactate in 2 Hours Y
[2022-12-23] MEDS: fentaNYL 1,000 MCG in DEXTROSE 5% IN WATER 230 ML 16.273 MCG IV (05:18)
[2022-12-23 05:54] LABS: Add Manual Diff / Slide Review NO; Basophils Absolute Auto 0 /uL (0-100); Basophils Percent Auto 0.3 % (0-2); Eosinophils Absolute Auto 0 /uL (0-450); Eosinophils Percent Auto 0.1 % (2-4); Hematocrit 38.2 % (36-46); Hemoglobin 13.1 g/dL (12.0-16.0); Lymphocytes Absolute Auto 500 /uL (1100-4500); Lymphocytes Percent Auto 4.8 % (25-40); Mean Corpuscular HGB Conc 34.4 % (30-36); Mean Corpuscular Hemoglobin 31.2 PG (26-34); Mean Corpuscular Volume 90.7 fL (80-100); Monocytes Absolute Auto 300 /uL (0-900); Monocytes Percent Auto 2.6 % (3-14); Neutrophils Absolute Auto 9400 /uL (1500-7000); Neutrophils Percent Auto 92.2 % (50-75); Platelet Count 265 X10^3/uL (150-400); Red Blood Cell Count 4.21 X10^6/uL (4.0-5.2); Red Cell Distribution Width 13.6 % (11.6-14.8); White Blood Cell Count 10.2 X10^3/uL (4.5-11.0)
--- NOTE | 2022-12-23 05:56 | P.TELICUCN_ITS ---
History of Present Illness Consult details IF CAMERA ACTIVATED, patient seen via real-time interactive audiovisual communication: Camera activated Date Patient Seen: 12/23/22 Chief complaint: Can't breath, tongue swollen Consent obtained for tele-low altitude air defense officer care: Yes Patient Location: ICU Provider location (State): [place] Other participants/roles: RN Narrative: Patient is a 62F with a PMH of Depression, Anxiety and Esophageal Stricture due to Lyman's Esophagus s/p Esophagectomy, Tobacco use who presented to the ER with difficulty breathing, muffled voice that required immediate intubation. Febrile at time of intubation. Received Unasyn, Dexamethasone. Placed on Propofol/Fentanyl. During ER visit yesterday, CT scan of neck showed: 1. Asymmetrically enlarged left submandibular gland with surrounding fat stranding and heterogeneous contrast enhancement concerning for infectious or inflammatory process involving left submandibular gland. 2. Mildly enlarged bilateral neck soft tissue lymph nodes concerning for reactive inflammatory lymph nodes. 3. No other neck soft tissue mass.? No drainable abscess collection.? Airway is patent.? Final read from today's repeat CT Neck is pending, but prelim read with: Enlarged left submandibular gland, obstructing calculus left Reagan's duct distally measuring 5 mm, with associated inflammatory changes present.? Supraglottic edema, cervical lymphadenopathy on left PFSH Medical History Contusion of right breast Elevated parathyroid hormone Family history of abdominal aortic aneurysm (AAA) Osteoarthritis of right knee Palpitations Smoker Swollen lymph nodes Thyroid Nodule Surgical History History of back surgery History of esophageal surgery History of fundoplication Hx of total knee replacement Hx of tubal ligation Family History Father No problems noted. Mother No problems noted. Social History marital status: household members: spouse occupational status: employed Smoking Status: Current every day smoker alcohol intake: never substance use type: does not use Current Medications Current Medications Medications: Home Medications latanoprost 0.005 % eye drops drp EYE-BOTH QPM 06/23/22 [History Confirmed 06/23/22] albuterol sulfate 90 mcg/actuation aerosol inhaler (Proventil HFA) 2 puff inhalation Q4HP PRN shortness of breath or wheezing ##8.5 11/13/22 [Rx] hydrocodone 5 mg-acetaminophen 325 mg tablet 1 - 2 tab PO TID PRN pain #90 tabs 11/13/22 [Rx] amoxicillin 875 mg-potassium clavulanate 125 mg tablet 1 tab PO BID 10 days #20 tabs 12/22/22 [Rx] Visit Medications (administered) Generic Name Dose Route Start Last Admin Trade Name Freq PRN Reason Stop Dose Admin Propofol 1,000 mg in 100 mls @ 5.85 mls/hr 12/23/22 01:45 12/23/22 05:47 Propofol IV 5 mcg/kg/min TITRATE NINA 5.85 mls/hr Titration Protocol 5 MCG/KG/MIN Fentanyl 1,000 mcg/ Dextrose 250 mls @ 16.273 mls/hr 12/23/22 02:30 12/23/22 05:18 IV 0.7 mcg/kg/hr TITRATE NINA 16.273 mls/hr Administration Protocol 0.7 MCG/KG/HR Dextrose/Sodium Chloride 1,000 mls @ 80 mls/hr 12/23/22 04:30 12/23/22 05:46 Dextrose 5%-0.9% Ns IV Not Given CONT NINA Exam Vital Signs (past 8 hours): - 12/23/22 01:22 12/23/22 01:40 12/23/22 01:45 Temperature 100.0 F H Pulse Rate 96 H 89 85 Respiratory Rate 24 29 H 24 Blood Pressure 126/58 L 134/71 Pulse Oximetry 97 97 98 Oxygen Delivery Method Room Air 12/23/22 01:50 12/23/22 01:55 12/23/22 02:00 Temperature Pulse Rate 86 126 H 129 H Respiratory Rate 20 21 40 H Blood Pressure 137/91 H Pulse Oximetry 89 L 99 83 L Oxygen Delivery Method 12/23/22 02:05 12/23/22 02:10 12/23/22 02:15 Temperature Pulse Rate 97 H 94 H 91 H Respiratory Rate 18 27 H 24 Blood Pressure 134/66 Pulse Oximetry 98 94 100 Oxygen Delivery Method 12/23/22 02:21 12/23/22 02:24 12/23/22 02:24 Temperature Pulse Rate 88 97 H Respiratory Rate 23 18 Blood Pressure 136/64 Pulse Oximetry 100 100 Oxygen Delivery Method 12/23/22 02:25 12/23/22 02:25 12/23/22 02:30 Temperature Pulse Rate 92 H Respiratory Rate 18 Blood Pressure 127/59 L 105/57 L Pulse Oximetry 100 Oxygen Delivery Method 12/23/22 02:30 12/23/22 02:54 12/23/22 02:54 Temperature Pulse Rate 87 79 Respiratory Rate 18 18 Blood Pressure 103/51 L Pulse Oximetry 99 98 Oxygen Delivery Method 12/23/22 02:55 12/23/22 02:55 12/23/22 03:00 Temperature Pulse Rate 79 79 Respiratory Rate 18 18 Blood Pressure 117/57 L Pulse Oximetry 82 L 98 Oxygen Delivery Method 12/23/22 03:01 12/23/22 03:01 12/23/22 03:05 Temperature Pulse Rate 79 Respiratory Rate 18 Blood Pressure 102/53 L 94/55 L Pulse Oximetry 98 Oxygen Delivery Method 12/23/22 03:05 12/23/22 03:10 12/23/22 03:10 Temperature Pulse Rate 78 76 Respiratory Rate 18 18 Blood Pressure 90/54 L Pulse Oximetry 97 96 Oxygen Delivery Method 12/23/22 03:15 12/23/22 03:15 12/23/22 03:20 Temperature Pulse Rate 75 Respiratory Rate 18 Blood Pressure 92/52 L 94/51 L Pulse Oximetry 96 Oxygen Delivery Method 12/23/22 03:20 12/23/22 03:25 12/23/22 03:25 Temperature Pulse Rate 74 72 Respiratory Rate 18 18 Blood Pressure 97/51 L Pulse Oximetry 96 96 Oxygen Delivery Method 12/23/22 03:30 12/23/22 03:30 12/23/22 03:35 Temperature Pulse Rate 69 Respiratory Rate 18 Blood Pressure 90/53 L 108/55 L Pulse Oximetry 97 Oxygen Delivery Method 12/23/22 03:35 12/23/22 03:40 12/23/22 03:40 Temperature Pulse Rate 70 71 Respiratory Rate 18 18 Blood Pressure 103/58 L Pulse Oximetry 99 99 Oxygen Delivery Method 12/23/22 03:45 12/23/22 03:45 12/23/22 03:50 Temperature Pulse Rate 73 Respiratory Rate 18 Blood Pressure 107/57 L 110/56 L Pulse Oximetry 99 Oxygen Delivery Method 12/23/22 03:50 12/23/22 03:55 12/23/22 03:55 Temperature Pulse Rate 72 70 Respiratory Rate 18 18 Blood Pressure 102/55 L Pulse Oximetry 99 98 Oxygen Delivery Method 12/23/22 04:00 12/23/22 04:00 12/23/22 04:05 Temperature Pulse Rate 70 Respiratory Rate 18 Blood Pressure 96/53 L 97/56 L Pulse Oximetry 97 Oxygen Delivery Method 12/23/22 04:05 12/23/22 04:10 12/23/22 04:10 Temperature Pulse Rate 69 68 Respiratory Rate 18 18 Blood Pressure 90/55 L Pulse Oximetry 97 97 Oxygen Delivery Method 12/23/22 04:15 12/23/22 04:15 12/23/22 04:20 Temperature Pulse Rate 68 Respiratory Rate 18 Blood Pressure 97/53 L 130/63 Pulse Oximetry 96 Oxygen Delivery Method 12/23/22 04:20 12/23/22 04:25 12/23/22 04:25 Temperature Pulse Rate 74 69 Respiratory Rate 18 18 Blood Pressure 117/56 L Pulse Oximetry 98 99 Oxygen Delivery Method 12/23/22 04:30 12/23/22 04:30 12/23/22 04:35 Temperature Pulse Rate 68 Respiratory Rate 18 Blood Pressure 109/55 L 102/53 L Pulse Oximetry 98 Oxygen Delivery Method 12/23/22 04:35 12/23/22 04:51 12/23/22 04:51 Temperature Pulse Rate 66 90 Respiratory Rate 18 24 Blood Pressure 136/71 Pulse Oximetry 97 99 Oxygen Delivery Method 12/23/22 04:45 12/23/22 05:00 12/23/22 05:00 Temperature 98.9 F Pulse Rate 90 72 Respiratory Rate 24 18 Blood Pressure 136/71 109/57 L Pulse Oximetry 99 100 Oxygen Delivery Method 12/23/22 05:03 12/23/22 05:03 12/23/22 05:13 Temperature Pulse Rate 72 69 Respiratory Rate 18 18 Blood Pressure 107/59 L Pulse Oximetry 100 98 Oxygen Delivery Method Oxygen Delivery Method Room Air Narrative Exam Narrative: Patient sedated, intubated. VS are WNL. ETT and OGT in place. Obvious L neck swelling but exam limited given Tele evaluation. Objective Labs 12/23/22 05:44 12/23/22 02:25 Labs: Laboratory Results - last 24 hr 12/23/22 12/23/22 12/23/22 02:25 02:25 02:25 WBC 7.8 RBC 4.38 Hgb 13.5 Hct 40.3 MCV 91.9 MCH 30.8 MCHC 33.6 RDW 13.4 Plt Count 292 Neut % (Auto) 74.2 Lymph % (Auto) 15.2 L [place] % (Auto) 9.9 Eos % (Auto) 0.4 L Baso % (Auto) 0.3 Neut # (Auto) 5800 Lymph # (Auto) 1200 [place] # (Auto) 800 Eos # (Auto) 0 Baso # (Auto) 0 ESR Sodium 134 L Potassium 4.1 Chloride 98 Carbon Dioxide 30 BUN 4 L Creatinine 0.67 Estimated GFR > 60 BUN/Creatinine Ratio 6.0 Glucose 136 H Lactate 2.1 Calcium 8.4 Total Bilirubin 0.6 AST 20 ALT 17 Alkaline Phosphatase 78 C-Reactive Protein Total Protein 7.1 Albumin 4.1 Globulin 3.0 Albumin/Globulin Ratio 1.4 Procalcitonin 12/23/22 12/23/22 02:25 02:25 WBC RBC Hgb Hct MCV MCH MCHC RDW Plt Count Neut % (Auto) Lymph % (Auto) [place] % (Auto) Eos % (Auto) Baso % (Auto) Neut # (Auto) Lymph # (Auto) [place] # (Auto) Eos # (Auto) Baso # (Auto) ESR 30 H Sodium Potassium Chloride Carbon Dioxide BUN Creatinine Estimated GFR BUN/Creatinine Ratio Glucose Lactate Calcium Total Bilirubin AST ALT Alkaline Phosphatase C-Reactive Protein 2.6 H Total Protein Albumin Globulin Albumin/Globulin Ratio Procalcitonin 0.05 Assessment & Plan Assessment & Plan narrative: 62F with c/f L sialoadenitis (5mm stone, enlarged L submandibular gland) and associated supraglottic edema c/f deep space neck infection, requiring intubati on. # Sialolithiasis and c/f Sialadenitis # Supraglottic Edema requiring intubation # c/f Deep Space neck infection # Acute Respiratory Failure due to above # h/o Esophageal Stricture # Tobacco use N: Continue Propofol, Fentanyl. Titrate to goal RASS 0 to -1. Daily sedation holidays P: Continue intubation. Daily CXR. Follow up blood gas post intubation. HOB > 30 degrees. CHG BID while intubated C: Goal MAP > 65. May need to initiate Levophed. GI: Obtain CXR to ensure NGT is passed GE junction given h/o esophageal stricture/surgery. Start TFs if no plan for OR. PPI R: mIVF @ 80/hour, recommend LR or NS. Monitor UOP, lytes ID: Continue Unasyn for deep space neck infection. Follow up final CT Neck. Recommend urgent ENT consultation H/O: VTE PPx with Lovenox. E: Continue Decadron given airway swelling Time Spent With Patient Critical Care time: I spent a total of [] minutes of critical care time on this patient's care today; this time is exclusive of procedural time.
[2022-12-23 06:04] LABS: BUN Creatinine Ratio 8.3 (6-22); Blood Urea Nitrogen 4 mg/dL (7-17); Calcium 8.2 mg/dL (8.4-10.2); Carbon Dioxide 23 mmol/L (22-32); Chloride 105 mmol/L (98-107); Estimated Glomerular Filt Rate > 60 mL/min (>60); Glucose 140 mg/dL (80-110); HEMOLYSIS < 15 (0-50); Potassium 3.7 mmol/L (3.4-5.1); Sodium 134 mmol/L (137-145)
[2022-12-23 06:24] LABS: Influenza A - CEPHEID Flu A NEGATIVE (NEGATIVE); Influenza B - CEPHEID Flu B NEGATIVE (NEGATIVE); Respiratory Syncytial Virus Negative (Negative)
[2022-12-23 06:25] LABS: COVID-19 CEPHEID 4-PLEX PCR Negative (Negative)
--- NOTE | 2022-12-23 06:27 | PC.ADMIT ---
[email or web address] Admission Note: The patient,Dior Godinez,62 y/o, was given written information regarding hospital policies, unit procedures and contact persons. Patient's smoking status: Current every day smoker. Vital Signs - 8 hr 12/23/22 01:22 12/23/22 01:40 12/23/22 01:45 Temperature 100.0 F H Pulse Rate 96 H 89 85 Respiratory Rate 24 29 H 24 Blood Pressure 126/58 L 134/71 Pulse Oximetry 97 97 98 Oxygen Delivery Method Room Air 12/23/22 01:50 12/23/22 01:55 12/23/22 02:00 Temperature Pulse Rate 86 126 H 129 H Respiratory Rate 20 21 40 H Blood Pressure 137/91 H Pulse Oximetry 89 L 99 83 L Oxygen Delivery Method 12/23/22 02:05 12/23/22 02:10 12/23/22 02:15 Temperature Pulse Rate 97 H 94 H 91 H Respiratory Rate 18 27 H 24 Blood Pressure 134/66 Pulse Oximetry 98 94 100 Oxygen Delivery Method 12/23/22 02:21 12/23/22 02:24 12/23/22 02:24 Temperature Pulse Rate 88 97 H Respiratory Rate 23 18 Blood Pressure 136/64 Pulse Oximetry 100 100 Oxygen Delivery Method 12/23/22 02:25 12/23/22 02:25 12/23/22 02:30 Temperature Pulse Rate 92 H Respiratory Rate 18 Blood Pressure 127/59 L 105/57 L Pulse Oximetry 100 Oxygen Delivery Method 12/23/22 02:30 12/23/22 02:54 12/23/22 02:54 Temperature Pulse Rate 87 79 Respiratory Rate 18 18 Blood Pressure 103/51 L Pulse Oximetry 99 98 Oxygen Delivery Method 12/23/22 02:55 12/23/22 02:55 12/23/22 03:00 Temperature Pulse Rate 79 79 Respiratory Rate 18 18 Blood Pressure 117/57 L Pulse Oximetry 82 L 98 Oxygen Delivery Method 12/23/22 03:01 12/23/22 03:01 12/23/22 03:05 Temperature Pulse Rate 79 Respiratory Rate 18 Blood Pressure 102/53 L 94/55 L Pulse Oximetry 98 Oxygen Delivery Method 12/23/22 03:05 12/23/22 03:10 12/23/22 03:10 Temperature Pulse Rate 78 76 Respiratory Rate 18 18 Blood Pressure 90/54 L Pulse Oximetry 97 96 Oxygen Delivery Method 12/23/22 03:15 12/23/22 03:15 12/23/22 03:20 Temperature Pulse Rate 75 Respiratory Rate 18 Blood Pressure 92/52 L 94/51 L Pulse Oximetry 96 Oxygen Delivery Method 12/23/22 03:20 12/23/22 03:25 12/23/22 03:25 Temperature Pulse Rate 74 72 Respiratory Rate 18 18 Blood Pressure 97/51 L Pulse Oximetry 96 96 Oxygen Delivery Method 12/23/22 03:30 12/23/22 03:30 12/23/22 03:35 Temperature Pulse Rate 69 Respiratory Rate 18 Blood Pressure 90/53 L 108/55 L Pulse Oximetry 97 Oxygen Delivery Method 12/23/22 03:35 12/23/22 03:40 12/23/22 03:40 Temperature Pulse Rate 70 71 Respiratory Rate 18 18 Blood Pressure 103/58 L Pulse Oximetry 99 99 Oxygen Delivery Method 12/23/22 03:45 12/23/22 03:45 12/23/22 03:50 Temperature Pulse Rate 73 Respiratory Rate 18 Blood Pressure 107/57 L 110/56 L Pulse Oximetry 99 Oxygen Delivery Method 12/23/22 03:50 12/23/22 03:55 12/23/22 03:55 Temperature Pulse Rate 72 70 Respiratory Rate 18 18 Blood Pressure 102/55 L Pulse Oximetry 99 98 Oxygen Delivery Method 12/23/22 04:00 12/23/22 04:00 12/23/22 04:05 Temperature Pulse Rate 70 Respiratory Rate 18 Blood Pressure 96/53 L 97/56 L Pulse Oximetry 97 Oxygen Delivery Method 12/23/22 04:05 12/23/22 04:10 12/23/22 04:10 Temperature Pulse Rate 69 68 Respiratory Rate 18 18 Blood Pressure 90/55 L Pulse Oximetry 97 97 Oxygen Delivery Method 12/23/22 04:15 12/23/22 04:15 12/23/22 04:20 Temperature Pulse Rate 68 Respiratory Rate 18 Blood Pressure 97/53 L 130/63 Pulse Oximetry 96 Oxygen Delivery Method 12/23/22 04:20 12/23/22 04:25 12/23/22 04:25 Temperature Pulse Rate 74 69 Respiratory Rate 18 18 Blood Pressure 117/56 L Pulse Oximetry 98 99 Oxygen Delivery Method 12/23/22 04:30 12/23/22 04:30 12/23/22 04:35 Temperature Pulse Rate 68 Respiratory Rate 18 Blood Pressure 109/55 L 102/53 L Pulse Oximetry 98 Oxygen Delivery Method 12/23/22 04:35 12/23/22 04:51 12/23/22 04:51 Temperature Pulse Rate 66 90 Respiratory Rate 18 24 Blood Pressure 136/71 Pulse Oximetry 97 99 Oxygen Delivery Method 12/23/22 04:45 12/23/22 05:00 12/23/22 05:00 Temperature 98.9 F Pulse Rate 90 72 Respiratory Rate 24 18 Blood Pressure 136/71 109/57 L Pulse Oximetry 99 100 Oxygen Delivery Method 12/23/22 05:03 12/23/22 05:03 12/23/22 05:13 Temperature Pulse Rate 72 69 Respiratory Rate 18 18 Blood Pressure 107/59 L Pulse Oximetry 100 98 Oxygen Delivery Method 12/23/22 05:00 12/23/22 05:30 12/23/22 05:30 Temperature Pulse Rate 66 Respiratory Rate 18 Blood Pressure 93/53 L Pulse Oximetry 98 Oxygen Delivery Method Mechanical Ventilation 12/23/22 05:47 12/23/22 05:47 12/23/22 06:00 Temperature Pulse Rate 63 Respiratory Rate 18 Blood Pressure 94/57 L 93/55 L Pulse Oximetry 98 Oxygen Delivery Method 12/23/22 06:00 12/23/22 06:15 12/23/22 06:15 Temperature Pulse Rate 65 63 Respiratory Rate 18 18 Blood Pressure 93/52 L Pulse Oximetry 98 98 Oxygen Delivery Method 12/23/22 06:17 Temperature Pulse Rate 65 Respiratory Rate 18 Blood Pressure Pulse Oximetry 97 Oxygen Delivery Method Patient admitted ICU room 226 at 0445. Oriented and able to assist with transfer to bed and turning. Propofol initially at 10mcg/kg/min, then down to 5mcg/min, Fentanyl initiated at 0.7mcg/kg/hr, then down to 0.5mcg/hr for hypotension, NS @ 80ml/hr, RASS -2, calmly sedated, denies pain. Left side of neck is hard and edematous, no discoloration. Tele-Intensivst consulted.
[2022-12-23] MEDS: LACTATED RINGERS 1,000 ML 80 ML IV ×2 (06:41→20:10)
[2022-12-23 07:03] LABS: MRSA (Nasal) PCR Not Detected (Not Detect)
[2022-12-23] MEDS: AMPICILLIN/SULBACTAM 1.5 GM 1.5 GM in SODIUM CHLORIDE 0.9% 100 ML IV ×3 (08:24→20:27)
[2022-12-23] MEDS: ENOXAPARIN 40 MG/0.4 ML SYRINGE SUBCUT (08:26)
[2022-12-23 08:29] LABS: Fractionated Inspired Oxygen 30; HCO3 ABG 24 mmol/L (23-27); Oxygen Saturation ABG 98 % (95-100); PCO2 ABG 26.7 mmHg (35-45); PO2 ABG 92 mmHg (80-100); TCO2 ABG 25 mmol/L (23-27)
[2022-12-23 08:31] LABS: pH ABG 7.57 (7.35-7.45)
--- NOTE | 2022-12-23 10:06 | DI.RAD.S_ITS ---
PROCEDURE: XR CHEST 1V INDICATIONS: Placement of OG tube TECHNIQUE: One view of the chest was acquired. COMPARISON: [facility], CR, XR CHEST 1V, 12/23/2022, 1:53. FINDINGS: Surgical changes and devices: OG tube tip is below the right hemidiaphragm and is in the expected location of mid to distal duodenum. Surgical clips are again seen projecting in left mediastinum. Lungs and pleura: Lungs are clear. No pleural effusions or pneumothorax. Mediastinum: Mediastinal contours appear normal. Heart size is enlarged. Bones and chest wall: No suspicious bony lesions. Overlying soft tissues appear unremarkable. IMPRESSION: OG tube tip is below right hemidiaphragm and is in the expected location of proximal small bowel. No gross free air under the diaphragm. Dictated by: Jimmie Palacios M.D. on 12/23/2022 at 11:25 Approved by: Jimmie Palacios M.D. on 12/23/2022 at 11:25
[2022-12-23] MEDS: PANTOPRAZOLE 40 MG VIAL IV (10:25)
--- NOTE | 2022-12-23 10:30 | CM.DANOTE ---
DCP: Case received, EMR reviewed and met with patient. Spouse,Rory, was at bedside. Introduced self and role. Was able to obtain information regarding patient's baseline activity status at home from spouse, as patient is intubated. DCP assessment completed with information currently available. Patient is a 62 year old female who admitted early this morning to the care of the hospitalist team. PCP: Dr. Deng. Payer: confirmed: [facility]. Patient came to the hospital via private vehicle secondary to having some neck swelling. Notes indicate thatpaient has neck lymph node swelling there that remains the same, but had become tender. CT had noted enlarged left submandibular gland. She had been discharged in the pm, returned at about 1:22 am, with worse neck swelling and hoarse voice, inability to swallow, and felt that she could not breathe. Patient ended up getting intubated, for airway protection. She has also needed suctioning. Met with spouse, Rory, at bedside. Confirmed that they both reside in [place], and she is independent at her baseline. She is employed at [employer]. P: DCP to continue to follow. Patient should be able to go home when deemed medically stable. Eva Vidal RN/World Geography Teacher Discharge Planning/Care Management CM Discharge Assessment Start: 12/23/22 09:32 Freq: Status: Active Protocol: Document 12/23/22 09:33 (Rec: 12/23/22 09:39 [id number]) Discharge Planning Assessment Assigned Pattern Mechanic Eva Vidal RN/World Geography Teacher Advance Directives? No History Provided By Family Member,Significant Other,Medical Record Household Members spouse Type of transporation used prior to Drives own vehicle admit Independent with ADL's Yes Is patient alert and oriented? Yes Caregiver for Another No Barriers to Discharge No Discharge Plan Home Transportation Arrangement Spouse Referrals Initiated None needed Whiteboard Updated in Patient Room with Yes name and ext. # of Pattern Mechanic Review Status In Process Next Review Type Continued Stay Review
[2022-12-23 11:06] LABS: Fractionated Inspired Oxygen 25; HCO3 VBG 24 mmol/L (24-28); Oxygen Saturation VBG 98 % (70-75); PCO2 VBG 32.5 mmHg (45-50); PO2 VBG 89 mmHg (35-45); Total CO2 VBG 25 mmol/L (24-29); pH VBG 7.47 (7.33-7.43)
--- NOTE | 2022-12-23 11:36 | DIET.CONS ---
Addendum entered by Jossy Arroyo 12/23/22 11:46: RD agrees with internist medical doctor md note below. Original Note: Dietary Consultation Note Admission Date: 12/23/2022 03:49 Assessment: 62 y/o F admitted for angioedema with required intubation. Pt with history of esophageal stricture Lyman's esophagus status post esophageal ectomy. Reccomend initiation of nutrition support via NG/OG: Pivot (1.5 Yuniel) @40 mL/hr (start @20 mL/hr titrating up to goal as tolerated q4h) with 225 mL free water flushes q4h (1494 kcals (22 kcal/kg ABW), 90 g protein (1.3 g/kg ABW), 2079 mL total fluid (30 mL/kg ABW)) Keep head of bed elevated >30 degrees at all times. Ht: 170.18 cm Wt: 90.8 kg BMI: 31.3 UBW: Last BM: 12/22/22 (12/23/22 09:06) MNA: 14 Angel Score: 15 Diet: 12/23/22 04:23 NPO Diet Diet Modifications: NPO Type: Strict Nutrition Type of Feeding Tube NG/OG 12/23/22 11:11 Labs: RBC 4.21 X10^6/uL (4.0-5.2) 12/23/22 05:44 Hgb 13.1 g/dL (12.0-16.0) 12/23/22 05:44 Hct 38.2 % (36-46) 12/23/22 05:44 Creatinine 0.48 mg/dL (0.52-1.04) L 12/23/22 05:44 Lactate 1.0 mmol/L (0.7-2.1) 12/23/22 05:44 Electronically Signed by: Krystle Anderson 12/23/22 11:36 Clinical Dietitian [address] [address]
--- NOTE | 2022-12-23 12:48 | PC.NURSE ---
Addendum entered by Svetlana Adames R.N. 12/23/22 16:07: 1600 received a call from [facility] ENT cisco unified communications engineer. Appointment made for patient for tomorrow afternoon check in 3:45pm for a 3:40pm appointment with Dr. Luna. ENT office will call back in AM to clarify whether patient is discharging tomorrow or if appointment needs to be pushed until . Addendum entered by Svetlana Adames R.N. 12/23/22 14:52: Patient extubated at approximately 1445. Suction as bedside. Saturation 94% on RA. OG tube removed. Patient exhibits strong cough, managing own secretions. VSS. Sedation turned off. Will continue to monitor. Original Note: Day shift: Educated patient on starting tube feeds. Patient expressed concern because of history of aspiration pneumonia associated with an NG/OG tube feeding x2. Notified Dr. Woo of patient's concerns. Dr. Woo okay with OG tube placement, explained this to patient. Patient agreed to start tube feed at 10mL/hr. Will continue to monitor.
[2022-12-23] MEDS: LATANOPROST 0.005% OPHTH 2.5 ML 1 DROPS EYE-BOTH (18:19)
[2022-12-23] MEDS: HYDROCODONE/ACET 5/325 TABLET 2 TAB PO (18:58)
[2022-12-24] VITALS (21 sets, daily range): BP systolic 101–124; BP diastolic 55–68; PULSE 66–81; RESP 12–27; TEMP 36.3–37; O2SAT 92–98
[2022-12-24] MEDS: AMPICILLIN/SULBACTAM 1.5 GM 1.5 GM in SODIUM CHLORIDE 0.9% 100 ML IV ×3 (03:16→14:12)
[2022-12-24] MEDS: ONDANSETRON 4 MG/2 ML INJ IV (03:27)
[2022-12-24 05:05] LABS: Add Manual Diff / Slide Review NO; Basophils Absolute Auto 0 /uL (0-100); Basophils Percent Auto 0.1 % (0-2); Eosinophils Absolute Auto 0 /uL (0-450); Hematocrit 36.7 % (36-46); Hemoglobin 12.5 g/dL (12.0-16.0); Lymphocytes Absolute Auto 1000 /uL (1100-4500); Lymphocytes Percent Auto 10.6 % (25-40); Mean Corpuscular Hemoglobin 31.2 PG (26-34); Mean Corpuscular Volume 91.7 fL (80-100); Monocytes Absolute Auto 800 /uL (0-900); Monocytes Percent Auto 8.2 % (3-14); Neutrophils Absolute Auto 7900 /uL (1500-7000); Neutrophils Percent Auto 81.1 % (50-75); Platelet Count 281 X10^3/uL (150-400); Red Cell Distribution Width 13.6 % (11.6-14.8); White Blood Cell Count 9.7 X10^3/uL (4.5-11.0)
[2022-12-24 05:13] LABS: BUN Creatinine Ratio 12.8 (6-22); Blood Urea Nitrogen 6 mg/dL (7-17); Calcium 8.5 mg/dL (8.4-10.2); Carbon Dioxide 30 mmol/L (22-32); Chloride 102 mmol/L (98-107); Estimated Glomerular Filt Rate > 60 mL/min (>60); Glucose 108 mg/dL (80-110); HEMOLYSIS < 15 (0-50); Potassium 3.7 mmol/L (3.4-5.1); Sodium 136 mmol/L (137-145)
--- NOTE | 2022-12-24 06:24 | PC.NURSE ---
Surveyor Note-Patient is A/Ox4. 97% on RA, lung sounds CTA, denies difficult breathing. Edema decreasing to neck. Zofran given for nausea r/t migraine, declines other interventions. Ambulates into BR independently, voiding. VSS.
[2022-12-24] MEDS: HYDROCODONE/ACET 5/325 TABLET 2 TAB PO (08:22)
[2022-12-24] MEDS: DEXAMETHASONE 10 MG/ML VIAL IV (08:24)
[2022-12-24] MEDS: PANTOPRAZOLE 40 MG VIAL IV (08:24)
[2022-12-24] MEDS: ENOXAPARIN 40 MG/0.4 ML SYRINGE SUBCUT (08:26)
[2022-12-24] MEDS: LACTATED RINGERS 1,000 ML 80 ML IV (08:28)
[2022-12-24] MEDS: HYDROMORPHONE 0.5 MG INJ IV (09:48)
--- NOTE | 2022-12-24 12:56 | P.DS_ITS ---
History of Present Illness History of Present Illness Date Patient Seen: 12/24/22 Time Patient Seen: 12:56 Chief complaint: Can't breath, tongue swollen Narrative: Dior Godinez is a 62-year-old female with a history of 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 Who presented to the ED earlier today complaining of swelling in her throat and neck area, she was found to be stable an evaluation unremarkable was sent home patient then returned this evening to the ED complaining of worsening difficulty breathing, voice was muffled had predominant and worsening swelling of the airway and mouth. Dr. Duggan ED was unable to visualize uvula or epiglottis, patient subsequently required immediate intubation. Unable to obtain HPI, ROS, or family medical hx due to intubation. At the time of admit patient is febrile with a temperature of 100? although likely secondary to intubation, BP 134/66, HR 91, RR 24 with an O2 saturation of 100% on ventilator. Labs are predominantly unremarkable, BUN 4, ESR 30, CRP 2.6, lactate 2.1, procalcitonin is within normal limits these are also post intubation. Chest x-ray and soft tissue of neck imaging results are pending. Patient admitted for angioedema of unknown etiology, to the ICU secondary to intubation. Discharge Providers Provider Date of admission: 12/23/22 03:49 Discharge Date: 12/24/22 Primary care physician: Kristofer Deng MD Consults: 12/23/22 04:20 Consult to Tele-aquatics director Routine Comment: Consulting Provider: [employer]iv[employer] Reason for consultation: Quality Assurance Analyst services Has provider been notified: No 12/23/22 04:29 Consult to Dietitian, Adult Routine Comment: Reason For Exam: 32.1 BMI Discharge provider: Terence Woo DO Summary Hospital Course Discharge Diagnosis: 1. Angioedema, acute, Goleta's duct calculus, with super glottic edema, acute present on admission -patient was intubated in ED due to airway swelling and muffled voice, extubated the next day and patient did well -CT neck:? Enlarged left submandibular gland with an obstructing calculus left Goleta's duct distally measuring 5 mm, with associated inflammatory changes present.? Supraglottic edema, cervical lymphadenopathy on left -received unasyn and decadron due to likely cellulitis of floor of mouth from infected obstructing salivary stone -Dr. Cuong Luna ENT recommended discharging on po augmentin and prednisone and he will see in clinic at 3pm on 12/24 to try to remove stone 2. History of esophageal stricture from Lyman's esophagus s/p esophagealectomy, chronic, present on admission -CT notes thoracic level esophageal thickening suspicious for malignancy -patient to f/u with GI and thoracic surgery in [place] 3. Lymphadenopathy, chronic, left anterior neck 4. obesity mild , acute on chronic, present on admission BMI 32.1 -dietary consult ordered regarding nutritional education and information for dietary, lifestyle, exercise, and weight changes. -the patient is at much higher risk for medical and surgical complications due to obesity as it relates to chronic illnesses:, and acute illness.? The pat ient's obesity increases the difficulty and complexity of medical and/or surgical interventions, management and increases the chances of poor outcome such as morbidity and mortality as well as impaired wound healing. Hospital Course: See problem list above. Time Spent with Patient Time spent: Greater than 30 minutes Exam Vital Signs (past 8 hours): - 12/24/22 05:00 12/24/22 05:30 12/24/22 06:00 Temperature Pulse Rate 77 74 77 Respiratory Rate 17 12 27 H Blood Pressure Pulse Oximetry 96 94 94 Oxygen Delivery Method 12/24/22 06:30 12/24/22 07:00 12/24/22 07:27 Temperature Pulse Rate 68 66 Respiratory Rate 14 18 Blood Pressure Pulse Oximetry 95 95 97 Oxygen Delivery Method 12/24/22 07:42 12/24/22 07:44 12/24/22 08:00 Temperature Pulse Rate 71 74 Respiratory Rate 19 16 Blood Pressure 103/56 L Pulse Oximetry 96 Oxygen Delivery Method 12/24/22 08:30 12/24/22 08:00 Temperature 98.5 F Pulse Rate 81 Respiratory Rate 22 Blood Pressure Pulse Oximetry 98 Oxygen Delivery Method Room Air Oxygen Delivery Method Room Air Narrative Exam Narrative: General: Patient is a well-developed, well-nourished female intubated, in no distress at this time. HEENT: Normocephalic, atraumatic, extraocular muscles intact, intabated Negative for JVD Chest: Normal AP diameter and contour without kyphoscoliosis, no nasal flaring, retractions, or tachypneic labored Lungs: Auscultation of all lung odonnell are clear without adventitious sounds, wheezes, rhonchi, or rales. Cardio: S1 & S2 with regular rate and rhythm without murmur, rubs, or gallops, no carotid bruit, no cardiac pulsations present. Abdomen: Soft nontender, negative for organomegaly, or masses. Bowel sounds are present in all 4 quadrants without guarding or rebound, no CVA tenderness. Musculoskeletal: Muscle strength and tone are equal within normal limits, no deformity, crepitus, effusions, cyanosis, clubbing or edema present. Full range of motion intact radial and pedal pulses are normal. Skin: Warm dry and intact without rashes, ulcerations or petechiae. Neuro: Alert, moves all extremities, sensation to touch intact, no gross deficits noted of cranial nerves. Psych: Patient has a well-kept appearance. Objective Labs 12/24/22 04:11 12/24/22 04:11 Labs: Laboratory Results - last 24 hr 12/24/22 12/24/22 04:11 04:11 WBC 9.7 RBC 4.00 Hgb 12.5 Hct 36.7 MCV 91.7 MCH 31.2 MCHC 34.0 RDW 13.6 Plt Count 281 Neut % (Auto) 81.1 H Lymph % (Auto) 10.6 L Bell % (Auto) 8.2 Eos % (Auto) 0.0 L Baso % (Auto) 0.1 Neut # (Auto) 7900 H Lymph # (Auto) 1000 L Bell # (Auto) 800 Eos # (Auto) 0 Baso # (Auto) 0 Sodium 136 L Potassium 3.7 Chloride 102 Carbon Dioxide 30 BUN 6 L Creatinine 0.47 L Estimated GFR > 60 BUN/Creatinine Ratio 12.8 Glucose 108 Calcium 8.5 PFSH Medical History Contusion of right breast Elevated parathyroid hormone Family history of abdominal aortic aneurysm (AAA) Osteoarthritis of right knee Palpitations Smoker Swollen lymph nodes Thyroid Nodule Surgical History History of back surgery History of esophageal surgery History of fundoplication Hx of total knee replacement Hx of tubal ligation Family History Father No problems noted. Mother No problems noted. Social History marital status: household members: spouse occupational status: employed Smoking Status: Current every day smoker alcohol intake: never substance use type: does not use Discharge Plan Discharge Plan Patient Disposition: Home Nursing Discharge Comment: Take all antibiotics as prescribed. If the pain, swelling, trouble breathing worsens, call 911 or go to nearest emergency department. Discharge orders & Medications Prescriptions: New amoxicillin-pot clavulanate 875-125 mg tablet 1 tab PO BID 7 Days Qty: 14 0RF prednisone 20 mg tablet 60 mg PO DAILY 5 Days Qty: 15 0RF Continued latanoprost 0.005 % drops 1 drp EYE-BOTH QPM albuterol sulfate 90 mcg/actuation HFA aerosol inhaler 2 puff INHALATION Q4H PRN (Reason: Shortness Of Breath) Patient Comments: INHALE TWO PUFFS INTO THE LUNGS EVERY 4 HOURS NEEDED FOR SHORTNESS OF BREATH OR WHEEZING. acarbose 25 mg tablet 25 mg PO TID Patient Comments: TAKE ONE TABLET BY MOUTH THREE TIMES DAILY hydrocodone-acetaminophen 5-325 mg tablet 1 - 2 tab PO TID PRN (Reason: pain) Qty: 20 0RF Rx Instructions: Take 1-2 tabs by mouth up to three times daily as needed for pain. Discontinued amoxicillin-pot clavulanate 875-125 mg tablet 1 tab PO BID 10 Days Qty: 20 0RF Follow up/Referrals: Cuong Luna MD [Physician] - As previously scheduled (Appointment scheduled for 12/24 at 3:25pm checkin, 3:40pm appointment.) Kristofer Deng MD [Primary Care Provider] - Other Ambulatory Orders: Referral to: (Schedule) Timeframe: 2 Days Location: Outside Services Ordered By: Terence Woo Visit Report/Discharge Packet Stand Alone Forms: Patient Portal/API, Stroke Signs & Symptoms Discharge Data Primary Care Provider: Kritsofer Deng Quality VTE Deep Vein Thrombosis/Pulmonary Embolism Present on Admission: No
--- NOTE | 2022-12-24 15:07 | PC.NURSE ---
Discharge note: IV discontinued, telemetry removed, education provided to patient on scheduled appointment today with ENT. Questions answered. Paperwork signed. Patient wheeled via wheelchair to private vehicle with spouse and PCT at approximately 1505.
== END 2022-12-24 15:05 | disposition home or self-care (01) | DRG 915 ==
LOC: ED 01:32 → AC 03:50 → ICU 04:08
PROVIDERS: Emergency Medicine; Admitting Provider Nurse Practitioner Family; Emergency Provider Emergency Medicine; Family Provider Internal Medicine Gastroenterology; PCP Family Medicine; Referring Provider Emergency Medicine; Visit Provider Nurse Practitioner Family
DX: T78.3XXA Angioneurotic edema, initial encounter (principal); J96.00 Acute respiratory failure, unspecified whether with hypoxia or hypercapnia; K11.5 Sialolithiasis; F17.200 Nicotine dependence, unspecified, uncomplicated; J38.4 Edema of larynx; E66.9 Obesity, unspecified; R59.0 Localized enlarged lymph nodes; Z98.890 Other specified postprocedural states; Z20.822 Contact with and (suspected) exposure to COVID-19; Z68.32 Body mass index [BMI] 32.0-32.9, adult
CPT/HCPCS: 0241U; 31500; 36415; 36600; 70491; 71045; 80048; 80053; 82805; 82962; 83605; 84145; 85025; 85651; 86140; 87040; 87797; 94002; 94799; 96365; 96375; 99285; 99291; 99292; C9113; J0295; J0330; J1100; J1170; J1650; J2060; J2405; J2704; J3010; Q9967

== ENCOUNTER → 2024-03-30 08:09 | Outpatient (CLI) | payer OTHER, SELFPAY ==
[2022-12-23 12:25] VITALS: PULSE 83; RESP 21; O2SAT 96
[2022-12-23 18:22] VITALS: BMI 31.3
--- NOTE | 2024-03-30 08:11 | DI.RAD.S_ITS ---
PROCEDURE: XR HIP W PEL IF DONE RT 2V INDICATIONS: chronic hip, knee and back pain TECHNIQUE: AP pelvis with lateral view(s) of the right hip(s). COMPARISON: [facility], , XR HIP W PEL IF DONE RT 2V, 08/12/2020, 10:28. FINDINGS: Bones: No fractures or dislocations. Pelvic ring appears intact. No suspicious bony lesions. Soft tissues: The visualized bowel gas pattern is normal. No suspicious soft tissue calcifications. IMPRESSION: No acute bony abnormality. Dictated by: Sarahy Jerez M.D. on 03/30/2024 at 9:59 Approved by: Sarahy Jerez M.D. on 03/30/2024 at 9:59
--- NOTE | 2024-03-30 08:11 | DI.RAD.S_ITS ---
PROCEDURE: XR LUMBAR SPINE MIN 4V INDICATIONS: chronic hip, knee and back pain TECHNIQUE: 5 views of the lumbar spine were acquired, including bilateral oblique views. COMPARISON: None. FINDINGS: Bones: 5 nonrib-bearing vertebrae are present. There is normal bony alignment. No vertebral body compression fractures. No suspicious bony lesions. Degenerative changes are noted at L4-5 and L5-S1 including intervertebral disc space narrowing, endplate sclerosis, and osteophytosis. Soft tissues: Overlying bowel gas pattern is normal. Scattered atheromatous calcifications are present throughout the abdominal aorta. Oblique images: No pars defects. IMPRESSION: No acute bony abnormality. No pars interarticularis defects. Mild degenerative change. Aortic atherosclerosis. Dictated by: Sarahy Jerez M.D. on 03/30/2024 at 9:58 Approved by: Sarahy Jerez M.D. on 03/30/2024 at 9:59
--- NOTE | 2024-03-30 08:11 | DI.RAD.S_ITS ---
PROCEDURE: XR KNEE RT 3V INDICATIONS: chronic hip, knee and back pain TECHNIQUE: 3 views of the knee were acquired. COMPARISON: [facility], , XR KNEE RT 3V, 08/12/2020, 10:28. FINDINGS: Bones: No fractures or dislocations. No suspicious bony lesions. There is moderate femorotibial compartment narrowing and small tricompartmental osteophytes. Findings are increased in severity when compared to the study dated March 30, 2024. Soft tissues: No joint effusion. No suspicious soft tissue calcifications. Mild chondrocalcinosis is noted likely associated with osteoarthritis. IMPRESSION: Moderate osteoarthritis increased from the prior study. Dictated by: Sarahy Jeerz M.D. on 03/30/2024 at 9:56 Approved by: Sarahy Jerez M.D. on 03/30/2024 at 9:57
[2024-03-30 09:12] LABS: Add Manual Diff / Slide Review NO; Basophils Absolute Auto 0 /uL (0-100); Basophils Percent Auto 0.5 % (0-2); Eosinophils Absolute Auto 100 /uL (0-450); Eosinophils Percent Auto 1.8 % (2-4); Hematocrit 42.9 % (36-46); Hemoglobin 14.2 g/dL (12.0-16.0); Lymphocytes Absolute Auto 1800 /uL (1100-4500); Lymphocytes Percent Auto 33.3 % (25-40); Mean Corpuscular HGB Conc 33.2 % (30-36); Mean Corpuscular Hemoglobin 30.5 PG (26-34); Monocytes Absolute Auto 400 /uL (0-900); Monocytes Percent Auto 7.7 % (3-14); Neutrophils Absolute Auto 3000 /uL (1500-7000); Neutrophils Percent Auto 56.7 % (50-75); Platelet Count 334 X10^3/uL (150-400); Red Blood Cell Count 4.67 X10^6/uL (4.0-5.2); Red Cell Distribution Width 13.7 % (11.6-14.8); White Blood Cell Count 5.4 X10^3/uL (4.5-11.0)
[2024-03-30 09:32] LABS: Erythrocyte Sedimentation Rate 4 MM/HR (0-20)
[2024-03-30 10:00] LABS: Alanine Aminotransferase 15 IU/L (<35); Albumin 4.3 g/dL (3.5-5.0); Albumin Globulin Ratio 1.6 (1.0-2.8); Alkaline Phosphatase 80 U/L (38-126); Aspartate Aminotransferase 22 IU/L (14-36); BUN Creatinine Ratio 21.1 (6-22); Bilirubin Total 0.6 mg/dL (0.2-1.3); Blood Urea Nitrogen 12 mg/dL (7-17); C-Reactive Protein Quant < 0.5 mg/dL (<1.0); Calcium 10.5 mg/dL (8.4-10.2); Carbon Dioxide 30 mmol/L (22-32); Chloride 103 mmol/L (98-107); Cholesterol 215 mg/dL (140-199); Estimated Glomerular Filt Rate > 60 mL/min (>60); Globulin 2.7 g/dL (1.7-4.1); Glucose 100 mg/dL (80-110); HEMOLYSIS < 15 (0-50); Potassium 4.5 mmol/L (3.4-5.1); Sodium 137 mmol/L (137-145); Triglycerides 88 mg/dL (35-150)
[2024-03-30 10:03] LABS: Rheumatoid Factor 13.1 IU/mL (<12.0)
[2024-03-30 10:15] LABS: HDL Cholesterol 117 mg/dL (40-60); LDL Cholesterol Calculated 80 mg/dL (<100)
[2024-03-30 10:28] LABS: TSH w/ Reflex to FT4 2.32 uIU/mL (0.47-4.68)
[2024-03-31 03:40] LABS: Apolipoprotein B 80 mg/dL (<90)
[2024-04-01 14:36] LABS: CCP Antibodies IgG/IgA 0 units (0-19)
== END ==
PROVIDERS: Family Provider Internal Medicine Gastroenterology; PCP Family Medicine; Referring Provider Family Medicine; Visit Provider Family Medicine
DX: M17.0 Bilateral primary osteoarthritis of knee (principal); M16.0 Bilateral primary osteoarthritis of hip; M47.816 Spondylosis without myelopathy or radiculopathy, lumbar region; M47.817 Spondylosis without myelopathy or radiculopathy, lumbosacral region; I70.0 Atherosclerosis of aorta; M54.50 Low back pain, unspecified; G89.29 Other chronic pain; R25.2 Cramp and spasm; F90.9 Attention-deficit hyperactivity disorder, unspecified type; K22.89 Other specified disease of esophagus
CPT/HCPCS: 36415; 72110; 73502; 73562; 80053; 80061; 82172; 84443; 85025; 85651; 86140; 86200; 86430

== ENCOUNTER → 2024-06-29 09:41 | Outpatient (CLI) | payer OTHER, SELFPAY ==
[2022-12-23 12:25] VITALS: PULSE 83; RESP 21; O2SAT 96
[2022-12-23 18:22] VITALS: BMI 31.3
== END ==
LOC: CAR 09:43
PROVIDERS: Family Provider Internal Medicine Gastroenterology; PCP Family Medicine; Referring Provider Family Medicine; Visit Provider Family Medicine
DX: R00.2 Palpitations (principal)
CPT/HCPCS: 93246

== ENCOUNTER → 2025-03-07 09:34 | Outpatient (CLI) | payer OTHER, SELFPAY ==
[2022-12-23 12:25] VITALS: PULSE 83; RESP 21; O2SAT 96
[2022-12-23 18:22] VITALS: BMI 31.3
[2025-03-07 10:10] LABS: Add Manual Diff / Slide Review NO; Basophils Absolute Auto 100 /uL (0-100); Basophils Percent Auto 1.3 % (0-2); Eosinophils Absolute Auto 100 /uL (0-450); Eosinophils Percent Auto 1.6 % (2-4); Hematocrit 41.6 % (36-46); Hemoglobin 13.9 g/dL (12.0-16.0); Lymphocytes Absolute Auto 1300 /uL (1100-4500); Lymphocytes Percent Auto 33.9 % (25-40); Mean Corpuscular HGB Conc 33.4 % (30-36); Mean Corpuscular Hemoglobin 31.4 PG (26-34); Monocytes Absolute Auto 400 /uL (0-900); Monocytes Percent Auto 9.2 % (3-14); Neutrophils Absolute Auto 2100 /uL (1500-7000); Platelet Count 309 X10^3/uL (150-400); Red Blood Cell Count 4.42 X10^6/uL (4.0-5.2); Red Cell Distribution Width 14.6 % (11.6-14.8); White Blood Cell Count 3.9 X10^3/uL (4.5-11.0)
[2025-03-07 10:28] LABS: Alanine Aminotransferase 15 IU/L (<35); Albumin 4.2 g/dL (3.5-5.0); Albumin Globulin Ratio 1.7 (1.0-2.8); Alkaline Phosphatase 84 U/L (38-126); Aspartate Aminotransferase 22 IU/L (14-36); BUN Creatinine Ratio 15.6 (6-22); Bilirubin Total 0.4 mg/dL (0.2-1.3); Blood Urea Nitrogen 10 mg/dL (7-17); Calcium 9.3 mg/dL (8.4-10.2); Carbon Dioxide 29 mmol/L (22-32); Chloride 104 mmol/L (98-107); Cholesterol 225 mg/dL (140-199); Estimated Glomerular Filt Rate > 60 mL/min (>60); Globulin 2.5 g/dL (1.7-4.1); Glucose 100 mg/dL (70-99); HEMOLYSIS < 15 (0-50); Potassium 4.5 mmol/L (3.4-5.1); Sodium 138 mmol/L (137-145); Total Protein 6.7 g/dL (6.3-8.2); Triglycerides 90 mg/dL (35-150)
[2025-03-07 10:41] LABS: Vitamin D 25 Hydroxy (D3) 15.4 ng/mL (30.0-100.0)
[2025-03-07 10:42] LABS: HDL Cholesterol 117 mg/dL (40-60); LDL Cholesterol Calculated 90 mg/dL (<100)
[2025-03-07 10:57] LABS: Creatinine Urine Random 155.68 mg/dL
[2025-03-07 10:58] LABS: TSH w/ Reflex to FT4 1.04 uIU/mL (0.47-4.68)
[2025-03-07 11:02] LABS: Microalbumin Urine Random < 0.6 mg/dL (0-1.6)
[2025-03-07 11:17] LABS: Vitamin B12 468 pg/mL (239-931)
[2025-03-08 05:13] LABS: Calcium 8.8 mg/dL (8.7-10.3); Parathyroid Hormone, Intact 82 pg/mL (15-65)
== END ==
PROVIDERS: Family Provider Internal Medicine Gastroenterology; PCP Family Medicine; Referring Provider Family Medicine; Visit Provider Family Medicine
DX: F90.9 Attention-deficit hyperactivity disorder, unspecified type (principal); R25.2 Cramp and spasm; M17.0 Bilateral primary osteoarthritis of knee; G89.29 Other chronic pain; M54.50 Low back pain, unspecified; E34.9 Endocrine disorder, unspecified
CPT/HCPCS: 36415; 80053; 80061; 82043; 82306; 82310; 82570; 82607; 83970; 84443; 85025

== ENCOUNTER 2025-05-09 16:59 | Emergency (ER) | payer OTHER, SELFPAY ==
[2022-12-23 12:25] VITALS: PULSE 83; RESP 21; O2SAT 96
[2022-12-23 18:22] VITALS: BMI 31.3
[2025-05-09 17:09] VITALS: BP 129/60; PULSE 83; RESP 20; TEMP 37.1; O2SAT 97; BMI 30.5
--- NOTE | 2025-05-09 17:34 | DI.CT.S_ITS ---
PROCEDURE: CT SOFT TISSUE NECK W CON INDICATIONS: patient has increased swelling from stone caught in salivary TECHNIQUE: After the administration of intravenous contrast, 3.0 mm axial sections acquired from the sella to the aortic arch. Additional oblique axial 3.0 mm sections acquired through the pharynx. 3 mm thick coronal and sagittal reformats were generated. For radiation dose reduction, the following was used: automated exposure control. COMPARISON: [facility], CT, CT SOFT TISSUE NECK W CON, 12/23/2022, 2:18. FINDINGS: Image quality: Excellent. Lymph nodes: No enlarged lymph nodes seen throughout the neck. Vessels: Visualized vasculature appears patent. Neck spaces: The oropharynx, nasopharynx, and pharynx demonstrate no mucosal lesions. The vocal cords, false vocal cords, pyriform sinuses, epiglottis, vallecula, and tongue base all appear normal. Extramucosal spaces appear unremarkable. Glands: Along the left submandibular duct, there is a prominent stone seen, as on series 2, image 47, measuring 8 x 5 mm. This stone measures nearly 1000 Hounsfield units. The left submandibular gland appears swollen and irregular, with generalized inflammatory change. The right submandibular gland is unremarkable. The parotid glands appear normal. Thyroid gland 2 demonstrates no significant abnormality. Miscellaneous: Visualized brain and orbits appear normal. Lung apices appear clear. Superficial soft tissues appear normal. The esophagus is abnormal. Bones: No suspicious bony lesions. Visualized sinuses and mastoids appear unremarkable. Moderate lower cervical spine degenerative change can be seen. IMPRESSION: An 8 mm there left submandibular duct stone is seen, with associated inflammatory change of the left submandibular gland. Abnormal esophagus. Prior surgery with pull-through is suspected. Please correlate with known patient history, however. Additional findings: Moderate lower cervical spine degenerative change Dictated by: Faustino Ferrer M.D. on 05/09/2025 at 16:48 Approved by: Faustino Ferrer M.D. on 05/09/2025 at 16:51
--- NOTE | 2025-05-09 17:59 | PC.NURSE ---
Pt endorses hx parotid stone in left lower jaw that she milks daily. Swelling today has grown from small grape to large egg size with swelling progressing across neck and into lower neck. pt states she has 8/10 pain radiating into left ear and headache.
[2025-05-09] MEDS: MORPHINE 4 MG/ML INJ IV (18:37)
[2025-05-09 19:40] VITALS: PULSE 79; O2SAT 98
--- NOTE | 2025-05-09 19:49 | ED.SKABFB ---
HPI - Skin/Abscess/Foreign Bdy General Chief complaint: Skin/Abscess/Foreign Body Stated complaint: swollen saliva gland left side Time Seen by Provider: 05/09/25 17:25 Source: patient Mode of arrival: Ambulatory History of Present Illness HPI narrative: 65-year-old female patient with a history of tobacco smoking, anxiety/depression and chronic problems with the left submandibular salivary obstruction and previous stones. She has recurrence of her left submandibular swelling and pain worse over the last day or 2 with no fever or chills. She has not seen an ENT or OMFS since this started 2 years ago and they attempted some type of stone removal it was an unsuccessful. Related Data Home Medications ?Medication ?Instructions ?Recorded ?Confirmed latanoprost 0.005 % eye drops 1 drp EYE-BOTH QPM 06/23/22 02/28/25 acarbose 25 mg tablet 25 mg PO TID 12/23/22 02/28/25 albuterol sulfate 90 mcg/actuation 2 puff inhalation Q4H PRN 12/23/22 02/28/25 aerosol inhaler Shortness Of Breath Previous Rx's ?Medication ?Instructions ?Recorded metoprolol succinate 25 mg 12.5 mg (1/2 x 25 mg) PO DAILY SVT 07/27/24 tablet,extended release 24 hr #45 tabs cyclobenzaprine 5 mg tablet 5 mg PO TID PRN muscle spasm #30 02/28/25 tabs dextroamphetamine-amphetamine ER 10 mg PO DAILY #30 caps 25 10 mg 24hr capsule,extend release (Adderall XR) dextroamphetamine-amphetamine ER 10 mg PO DAILY #30 caps 25 10 mg 24hr capsule,extend release (Adderall XR) dextroamphetamine-amphetamine ER 10 mg PO DAILY #30 caps 25 10 mg 24hr capsule,extend release (Adderall XR) hydrocodone 5 mg-acetaminophen 325 1 - 2 tab PO TID PRN pain #90 tabs 05/20/25 mg tablet hydrocodone 5 mg-acetaminophen 325 1 tab PO Q8H PRN pain #90 tabs 05/20/25 mg tablet hydrocodone 5 mg-acetaminophen 325 See Rx Instructions PO .COMPLEX 05/20/25 mg tablet PRN pain #90 tabs amoxicillin 875 mg-potassium 1 tab PO BID 8 days #16 tabs 05/09/25 clavulanate 125 mg tablet Allergies Allergy/AdvReac Type Severity Reaction Status Date / Time NSAIDS (Non-Steroidal AdvReac Severe Puking Verified 05/09/25 17:09 Anti-Inflamma Blood Review of Systems Review of Systems ROS Unobtainable: All systems reviewed & are unremarkable except as noted in HPI and below Constitutional Constitutional: Reports system reviewed and no additional complaints, except as documented ENT Ears, Nose, Mouth, and Throat: Reports system reviewed and no additional complaints, except as documented and Reports as per HPI Cardiovascular Cardiovascular: Denies chest pain and Denies dyspnea Respiratory Respiratory: Denies dyspnea Integumentary/Breasts Skin/Breast: Reports as per HPI Patient History Medical History (Updated 05/09/25 @ 20:12 by Geraldo Herndon MD) Degenerative arthritis of knee, bilateral Bilateral hip joint arthritis Family history of abdominal aortic aneurysm (AAA) Smoker Palpitations Elevated parathyroid hormone Thyroid Nodule Contusion of right breast Swollen lymph nodes Osteoarthritis of right knee Surgical History History of back surgery Hx of tubal ligation Hx of total knee replacement History of fundoplication History of esophageal surgery Family History Father No problems noted. Mother No problems noted. Social History marital status: household members: spouse occupational status: employed Smoking Status: Current every day smoker alcohol intake: never substance use type: does not use Smoking Status: Current every day smoker tobacco type: vaping alcohol intake frequency: holidays/special occasions only Exam Initial Vital Signs Initial Vital Signs: Vital Signs Temperature 98.8 F 05/09/25 17:09 Pulse Rate 83 05/09/25 17:09 Respiratory Rate 20 05/09/25 17:09 Blood Pressure 129/60 05/09/25 17:09 Pulse Oximetry 97 05/09/25 17:09 Oxygen Delivery Method Room Air 05/09/25 17:09 Const General: cooperative, healthy appearing, comfortable and No acute distress [facility] Head: normocephalic Face and sinus: abnormal facial exam (Left submandibular salivary gland is enlarged and tender. ) Mouth: other (Enlarged and tender left submandibular gland) Neck Neck: No lymphadenopathy and submandibular swelling Resp Effort & Inspection: normal respiratory effort Auscultation: clear to auscultation bilaterally Course Orders Ordered: Discontinued Medications Amoxicillin/Clavulanate Potassium (Amoxicillin/Clav 875/125 Mg) 1 tab PO NOW ONE Stop: 05/09/25 20:07 Last Admin: 05/09/25 20:17 Dose: 1 tab Documented By: ES Morphine Sulfate (Morphine 4 Mg/Ml Inj) 4 mg IV NOW ONE Stop: 05/09/25 18:32 Last Admin: 05/09/25 18:37 Dose: 4 mg Documented By: ES Vital Signs Vital signs: Vital Signs - 8 hr 05/09/25 17:09 Temperature 98.8 F Pulse Rate 83 Respiratory Rate 20 Blood Pressure 129/60 Pulse Oximetry 97 Oxygen Delivery Method Room Air MDM - Skin/Abscess/Foreign Bdy Differential Diagnosis Condition is:: Well Controlled Chronic Condition is having:: Moderate exacerbation Medical Records Attestation: I reviewed the patient's medical records. MDM Narrative Medical decision making narrative: Patient has exacerbation of left submandibular sialadenitis with warmth and tenderness indicating possible infection. However she has no airway obstruction problems otherwise. Plan will be a course of Augmentin. Warm packs intermittently and plenty of fluids. Sialagogues and continue her current pain medication which she takes for chronic pain issues. Follow-up closely with primary care for referral to ENT or OMFS to address this problem. Discharge Plan Departure Patient Disposition: Home Clinical Impression: Sialoadenitis of submandibular gland Activity Restrictions/Additional Instructions: Assessment: Left submandibular sialadenitis which is an inflammation and possible infection of the salivary gland with possible stone blockage. Plan: Warm packs intermittently and plenty of clear fluids especially water. Sialagogues such as lemon drops hard candies to promote salivation. Aigp-ofe-thzcakx and prescription pain medicine. Follow-up closely with your provider for referral to ENT or OMFS to address this problem with salivary gland in the left submandibular region. Prescriptions: New amoxicillin-pot clavulanate 875-125 mg tablet 1 tab PO BID 8 Days Qty: 16 0RF Rx Instructions: May substitute liquid form if pills are too large to swallow. No Action metoprolol succinate 25 mg tablet extended release 24 hr 12.5 mg PO DAILY Qty: 45 0RF latanoprost 0.005 % drops 1 drp EYE-BOTH QPM dextroamphetamine-amphetamine [Adderall XR] 10 mg capsule,extended release 24hr 10 mg PO DAILY Qty: 30 0RF dextroamphetamine-amphetamine [Adderall XR] 10 mg capsule,extended release 24hr 10 mg PO DAILY Qty: 30 0RF dextroamphetamine-amphetamine [Adderall XR] 10 mg capsule,extended release 24hr 10 mg PO DAILY Qty: 30 0RF hydrocodone-acetaminophen 5-325 mg tablet 1 - 2 tab PO TID PRN (Reason: pain) Qty: 90 0RF Rx Instructions: Take 1-2 tabs by mouth up to three times daily as needed for pain. hydrocodone-acetaminophen 5-325 mg tablet 1 tab PO Q8H PRN (Reason: pain) Qty: 90 0RF Rx Instructions: Take 1-2 tabs by mouth up to three times daily as needed for pain. hydrocodone-acetaminophen 5-325 mg tablet See Rx Instructions PO .COMPLEX PRN (Reason: pain) Qty: 90 0RF Rx Instructions: orally PRN; Take 1-2 tabs by mouth up to three times daily as needed for pain. cyclobenzaprine 5 mg tablet 5 mg PO TID PRN (Reason: muscle spasm) Qty: 30 1RF albuterol sulfate 90 mcg/actuation HFA aerosol inhaler 2 puff INHALATION Q4H PRN (Reason: Shortness Of Breath) Patient Comments: INHALE TWO PUFFS INTO THE LUNGS EVERY 4 HOURS NEEDED FOR SHORTNESS OF BREATH OR WHEEZING. acarbose 25 mg tablet 25 mg PO TID Patient Comments: TAKE ONE TABLET BY MOUTH THREE TIMES DAILY Referrals: Kristofer Deng MD [Primary Care Provider, Family Practice] Stand Alone Forms: Patient Portal/API
[2025-05-09 20:00] VITALS: PULSE 80; O2SAT 97
[2025-05-09 20:10] VITALS: BP 140/70; PULSE 86; O2SAT 97
[2025-05-09] MEDS: AMOXICILLIN/CLAV 875/125 MG 1 TAB PO (20:17)
[2025-05-09 20:27] VITALS: BP 140/70; PULSE 86; RESP 17; O2SAT 97
--- NOTE | 2025-05-10 11:47 | PC.NURSE ---
Dr. Spaulding speaking with pharmacist regarding liquid
--- NOTE | 2025-05-10 12:14 | PC.NURSE ---
called in prescription, Augmentin 400/57 mg liquid, 10.9 ml PO bid x [address] dotson . spoke with pharmacist.
== END 2025-05-09 20:27 | disposition home or self-care (01) ==
PROVIDERS: Emergency Provider Emergency Medicine; Family Provider Internal Medicine Gastroenterology; PCP Family Medicine
DX: K11.20 Sialoadenitis, unspecified (principal)
CPT/HCPCS: 70491; 96374; 99284; J2270; Q9967